=== PATIENT | male | born 1940 | race Caucasian/White ===

== ENCOUNTER → 2017-01-05 | Outpatient (CLI) | payer OTHER ==
[~2017-01-05] MED LIST: ASPI325T39 PO; ESCI1TAB9 PO; LEVO88TA3 PO; MULT-845 PO; PENICILLIN PO; SIMV40TA4 PO; VARD20TA PO
[2017-01-06 16:12] LABS: GAMMA GLOBULIN 1.1 G/DL (0.8-1.7)
== END | disposition home or self-care (01) ==
LOC: C.LABBFT 10:26
PROVIDERS: ATTEND Psychiatry & Neurology Neurology
DX: G62.9 Polyneuropathy, unspecified (principal)

== ENCOUNTER → 2017-05-22 | Outpatient (CLI) | payer OTHER ==
[2017-05-22 17:38] LABS: BASO % 0.2 %; BASO ABS # 0.02 K/uL (0-0.2); COMPLETE YES; EOS % 1.5 %; HEMATOCRIT 45.8 % (42-52); IG% 0.2 %; LYMPH % 26.6 %; LYMPH ABS # 2.51 K/uL (1.2-3.4); MEAN CELL VOLUME 86.6 fL (80-100); MEAN CORPUSCULAR HEMOGLOBIN 29.3 pg (25-34); MEAN CORPUSCULAR HGB CONC 33.8 g/dl (32-36); MEAN PLATELET VOLUME 9.9 fL (7.4-10.4); MONO % 7.3 %; NEUT % 64.2 %; PLATELET COUNT 253 K/uL (130-400); RED BLOOD COUNT 5.29 M/uL (4.7-6.1); WHITE BLOOD COUNT 9.43 K/uL (4.8-10.8)
[2017-05-22 17:50] LABS: PARTIAL THROMBOPLASTIN RATIO 1.1
[2017-05-22 18:55] LABS: PROTHROMBIN TIME (PATIENT) 10.7 SECONDS (9.0-12.0)
== END | disposition home or self-care (01) ==
LOC: C.LABBFT 17:47
PROVIDERS: ATTEND Urology
DX: N40.1 Benign prostatic hyperplasia with lower urinary tract symptoms (principal); R33.9 Retention of urine, unspecified; T14.8 Other injury of unspecified body region; X58.XXXA Exposure to other specified factors, initial encounter

== ENCOUNTER → 2017-06-07 | Outpatient (CLI) | payer OTHER ==
[2017-06-07 12:34] LABS: BASO % 0.3 %; BASO ABS # 0.03 K/uL (0-0.2); COMPLETE YES; EOS % 2.4 %; HEMATOCRIT 47.7 % (42-52); IG% 0.2 %; LYMPH ABS # 2.68 K/uL (1.2-3.4); MEAN CORPUSCULAR HGB CONC 31.9 g/dl (32-36); MEAN PLATELET VOLUME 10.1 fL (7.4-10.4); MONO % 9.2 %; NEUT % 59.9 %; PLATELET COUNT 261 K/uL (130-400); RED BLOOD COUNT 5.42 M/uL (4.7-6.1); WHITE BLOOD COUNT 9.56 K/uL (4.8-10.8)
[2017-06-07 12:54] LABS: ESTIMATED AVERAGE GLUCOSE 117 mg/dl; HA1C FLAG Normal (Normal)
[2017-06-07 13:00] LABS: ALT/SGPT 31 U/L (12-78); BLOOD UREA NITROGEN 16 mg/dl (7-18); CALCIUM 8.7 mg/dl (8.5-10.1); CARBON DIOXIDE 29 mmol/L (21-32); CHLORIDE 107 mmol/L (98-107); CHOLESTEROL 123 mg/dl (0-200); CREATININE 0.88 mg/dl (0.60-1.40); GLUCOSE 91 mg/dl (70-99); SODIUM 142 mmol/L (136-145); TRIGLYCERIDES 128 mg/dl (0-150); VERY LOW DENSITY LIPOPROT CALC 26 mg/dl
[2017-06-07 13:12] LABS: ALKALINE PHOSPHATASE 74 U/L (45-117); AST/SGOT 23 U/L (15-37); CHOLESTEROL/HDL RATIO 2.8; HDL CHOLESTEROL 44 mg/dl; LDL CHOLESTEROL CALCULATED 53 mg/dl; THYROID STIMULATING HORMONE 0.577 uIu/ml (0.300-4.500)
--- NOTE | 2017-06-13 12:00 | CODING QUERY MEDICAL NECESSITY ---
SUPPORTING DIAGNOSIS NEEDED Dr. Mendez, A supporting diagnosis is required for the test/procedure performed on this patient in order for us to be reimbursed by the patient's insurance. Please provide a supporting diagnosis for the following test/procedure listed below next to the test name along with your signature. *If there is no additional diagnosis for this patient that would support the following test/procedure please document that below next to the test/procedure. Test(s)/Procedure(s) that require a supporting diagnosis: * ([id number]) VITAMIN D ASSAY DIAGNOSIS: DATE OF SERVICE: 06/07/17 Provider Signature: Date: Thank you Jacob Carmona [facility] Information Management Once completed, please kindly fax back to [phone] For questions please call [phone]
== END | disposition home or self-care (01) ==
LOC: C.LABBFT 10:02
PROVIDERS: ATTEND Internal Medicine
DX: E03.9 Hypothyroidism, unspecified (principal); R73.01 Impaired fasting glucose

== ENCOUNTER → 2018-06-13 | Outpatient (CLI) | payer OTHER ==
[2018-06-13 12:35] LABS: BASO % 0.3 %; BASO ABS # 0.03 K/uL (0-0.2); EOS % 1.9 %; IG# 0.02 K/uL (0.00-0.02); LYMPH % 23.4 %; LYMPH ABS # 2.46 K/uL (1.2-3.4); MEAN CORPUSCULAR HGB CONC 33.3 g/dl (32-36); MEAN PLATELET VOLUME 10.2 fL (7.4-10.4); MONO % 7.8 %; MONO ABS # 0.82 K/uL (0.11-0.59); NEUT % 66.4 %; PLATELET COUNT 259 K/uL (130-400); RED CELL DISTRIBUTION WIDTH CV 13.5 % (11.5-14.5); RED CELL DISTRIBUTION WIDTH SD 43.2 fL (36.4-46.3); WHITE BLOOD COUNT 10.53 K/uL (4.8-10.8)
[2018-06-13 12:50] LABS: HEMOGLOBIN A1C 5.7 % (4.5-5.6)
[2018-06-13 13:05] LABS: ALBUMIN 3.4 gm/dl (3.4-5.0); ALKALINE PHOSPHATASE 83 U/L (45-117); ALT/SGPT 24 U/L (12-78); AST/SGOT 22 U/L (15-37); BLOOD UREA NITROGEN 14 mg/dl (7-18); CARBON DIOXIDE 26 mmol/L (21-32); CHOLESTEROL 126 mg/dl (0-200); CREATININE 0.97 mg/dl (0.60-1.40); GLUCOSE 89 mg/dl (70-99); LDL CHOLESTEROL CALCULATED 55 mg/dl; POTASSIUM 3.8 mmol/L (3.5-5.1); SODIUM 139 mmol/L (136-145); TOTAL PROTEIN 7.2 gm/dl (6.4-8.2)
== END | disposition home or self-care (01) ==
LOC: C.LABBFT 07:52
PROVIDERS: ATTEND Internal Medicine
DX: E03.9 Hypothyroidism, unspecified (principal); E78.5 Hyperlipidemia, unspecified; M47.812 Spondylosis without myelopathy or radiculopathy, cervical region; M81.0 Age-related osteoporosis without current pathological fracture; R73.01 Impaired fasting glucose; R41.3 Other amnesia; R26.9 Unspecified abnormalities of gait and mobility; R03.0 Elevated blood-pressure reading, without diagnosis of hypertension; I63.9 Cerebral infarction, unspecified; R53.1 Weakness

== ENCOUNTER 2022-07-23 18:35 | Inpatient (IN) ==
--- NOTE | 2022-07-23 18:39 | Emergency Department Note ---
ED Provider Note NAME: MARY GRACE BLAKELY AGE: 81 SEX: M : 1940 ARRIVES VIA: Ambulance INFORMANT: [Patient][, ] ED PROVIDER(S): [Armando Celestin MD] Chief Complaint: [] HPI: [] ROS: See HPI for pertinent positives and negatives. A total of 10 systems were reviewed and otherwise negative. Past medical history: See below Surgical history: See below Social history: See below Physical Exam: GENERAL: NAD, [wearing a mask,] non-toxic. EYE EXAM: Normal conjunctiva. PERRL, no anisocoria and EOM's grossly intact w/o pain. NECK: Supple, no nuchal rigidity, no adenopathy, non-tender. No signs of meningismus. FROM of the neck with good chin to chest and neck extension. No stridor. LUNGS: Clear to auscultation. Normal chest wall mechanics. HEART: NSR, no MRG. ABDOMEN: Abdomen soft, non-tender, normo-active bowel sounds, no masses, no rebound or guarding. BACK: No CVA TTP. SKIN: No rashes and no bruising. UPPER EXTREMITIES: Upper extremities are grossly normal. LOWER EXTREMITIES: Grossly normal, no edema. NEURO EXAM: A&O x3, cranial nerves II-XII grossly intact, normal speech, moves all 4 extremities. Differential diagnoses: [] Course: Patient was seen and evaluated the bedside. Full history physical exam was performed. EKG interpreted by me [] Imaging Studies: See Below Cardiac monitoring: An order was placed for continuous cardiac monitoring. The monitor shows a rate of [] with [] rhythm. MDM: [] Past Med/Surg History Medical History Benign prostatic hyperplasia with lower urinary tract symptoms Diverticulosis of colon Gait disturbance, post-stroke Hypothyroidism Impaired fasting glucose Osteoporosis Periodic limb movement disorder Stenosis, cervical spine Stroke, hemorrhagic Tremor Surgical History History of colonoscopy (12/02/15) Dr. Lee, sigmoid diverticulosis, no polyps. Due to age, no repeat necessary for screening. 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 Physical Activity Frequency: Does not Exercise Seatbelt Use: always Sunscreen Use: No Allergies Allergies Allergy/AdvReac Type Severity Reaction Status Date / Time No Known Allergies Allergy Unverified 09/01/21 15:03 Home Meds Home Medications Medication Instructions Recorded Confirmed glucosamine-chondroitin 250 mg-200 1 tab PO BID 08/27/20 09/01/21 mg tablet (Osteo Bi-Flex) vitamin E (dl, acetate) 90 mg (200 268 unit PO DAILY 09/01/21 09/01/21 unit) capsule Previous Rx's Medication Instructions Recorded jluohrqw-ngg-jrhkp acid 0.4 1 tab PO DAILY #30 tabs 06/01/19 mg-lycopene 300 mcg-lutein 250 mcg tablet (Centrum Silver) simvastatin 40 mg tablet See Rx Instructions .Route QPM #90 03/31/22 tabs clopidogrel 75 mg tablet 75 mg PO DAILY #90 tabs 04/27/22 donepezil 10 mg tablet 10 mg PO DAILY #30 tabs 05/23/22 levothyroxine 88 mcg tablet 88 mcg PO DAILY #30 tabs 05/23/22 Wheelchair (Manual) #1 ea 06/06/22 diaper,brief,adult,disposable #120 ea 06/06/22 underpads (Bed Underpads) #100 ea 06/06/22 tamsulosin 0.4 mg capsule 0.4 mg PO DAILY #90 caps 06/17/22 memantine 10 mg tablet 10 mg PO BID #60 tabs 06/27/22 finasteride 5 mg tablet 5 mg PO DAILY #90 tabs 07/20/22 Results & Data (ED) Home Medications Current Medication List: was personally reviewed by me Laboratory Data Attestation: I reviewed the patient's lab results. Discharge Plan Visit Data Chief Complaint: Illness Stated Complaint: WEAKNESS ED Provider: Armando Celestin Forms Stand Alone Forms: [facility] Prescriptions Prescriptions: No Action Centrum Silver 0.4-300-250 mg-mcg-mcg tablet 1 tab PO DAILY Qty: 30 0RF simvastatin 40 mg tablet See Rx Instructions .ROUTE QPM Qty: 90 3RF Dose Instruction: TAKE 1 TABLET AT BEDTIME Rx Instructions: TAKE 1 TABLET AT BEDTIME; daily in the evening; clopidogrel 75 mg tablet 75 mg PO DAILY Qty: 90 3RF levothyroxine 88 mcg tablet 88 mcg PO DAILY Qty: 30 11RF donepezil 10 mg tablet 10 mg PO DAILY Qty: 30 11RF tamsulosin 0.4 mg capsule 0.4 mg PO DAILY Qty: 90 3RF memantine 10 mg tablet 10 mg PO BID Qty: 60 11RF finasteride 5 mg tablet 5 mg PO DAILY Qty: 90 3RF glucosamine-chondroitin [Osteo Bi-Flex] 250-200 mg tablet 1 tab PO BID Rx Instructions: give after food/meal vitamin E (dl, acetate) 90 mg (200 unit) capsule 268 unit PO DAILY (DME) Wheelchair (Manual) Device See Rx Instructions .Route Qty: 1 0RF Rx Instructions: As directed (DME) diaper,brief,adult,disposable Misc See Rx Instructions .Route Qty: 120 11RF Rx Instructions: Diaper type. SIZE MEDIUM/LARGE (DME) underpads [Bed Underpads] Pad See Rx Instructions .Route Qty: 100 11RF Rx Instructions: Change as needed Referrals Referrals: Leonid Nj MD [Primary Care Provider] -
[2022-07-23] MEDS ORDERED: SODIUM CHLORIDE 0.9% 1000ML 1,000 ML IV ONE (18:41)
--- NOTE | 2022-07-23 18:45 | Emergency Department Note ---
Impression & Plan Acute confusion, COVID-19, Weakness ED Provider Note NAME: MARY GRACE BLAKELY AGE: 81 SEX: M : 1940 ARRIVES VIA: Ambulance INFORMANT: Patient, EMS ED PROVIDER(S): Jerardo Taylor DO CHIEF COMPLAINT: AMS and weakness HPI: Patient is a 81-year-old male with a past medical history of urinary incontinence, stroke, hyperlipidemia, who presents to the ER for altered mental status and weakness which has been present since yesterday per EMS. He lives at home with his . Family has noted increased confusion. He denies any headache, neck pain, chest pain, shortness of breath or belly pain. He denies any new weakness or numbness in the arms or legs. He notes that he does have old weakness in the right lower extremity. History is limited secondary to mentation. ROS: Review of systems is limited secondary to mentation PAST MEDICAL HISTORY:See Below PAST SURGICAL HISTORY:See Below FAMILY HISTORY:See Below SOCIAL HISTORY:See Below HOME MEDICATIONS:See Below ALLERGIES:See Below VITALS:See Below PHYSICAL EXAMINATION: GENERAL: Sitting up in bed, alert, chronically ill-appearing, disheveled EYE EXAM: normal conjunctiva. PERRL and EOM's grossly intact. OROPHARYNX: Dry mucous membranes LUNGS: Clear to auscultation. Normal chest wall mechanics HEART: no murmurs, S1 normal and S2 normal ABDOMEN: abdomen soft, non-tender, normo-active bowel sounds, no masses, no rebound or guarding. UPPER EXTREMITIES: upper extremities are grossly normal. LOWER EXTREMITIES: No pitting edema. NEURO EXAM: Oriented to person but not place or year, cranial nerves II-XII intact, normal speech, no weakness of arms, no weakness of left lower extremity but weakness in the right lower extremity which is old per patient. MEDICAL DECISION MAKING: Patient is a 81-year-old male who presents ER for above-stated complaint. Family notes that he has been coughing over the past 24 hours. IV was established blood work was obtained. Labs show leukocytosis of 14,000. No significant anemia. BMP along with LFTs bilirubin was unremarkable. Troponin was mildly elevated at 30. Lipase and Pro-Adonis were normal. UA was fairly unremarkable. COVID was positive. Chest x-ray shows no focal infiltrate. Patient was updated bedside and discussed with hospitalist for further evaluation. Triage Nursing notes reviewed. Limited review of prior medical records performed Vital Signs: reviewed and remarkable for no significant abnormalities Differential diagnosis: Differential diagnoses includes but is not limited to toxic, metabolic, infectious, traumatic, cardiac, neurologic, hematologic, psychiatric and inflammatory etiologies. ER treatment provided: See below Diagnostics interpreted by me: ECG: none Cardiac Monitoring: An order was placed for continuous cardiac monitoring. The m onitor shows a rate of 92 with sinus rhythm. Laboratory studies: As stated above and show below. Imaging studies: Portable AP upright 1 view the chest per my read shows no focal infiltrate or pneumothorax Consultation(s): Discussed the hospitalist for further evaluation Procedures: none Critical Care: None Past Med/Surg History Medical History (Updated 07/24/22 @ 00:57 by Jerardo Taylor DO) Benign prostatic hyperplasia with lower urinary tract symptoms Diverticulosis of colon Elevated troponin Gait disturbance, post-stroke Hypothyroidism Impaired fasting glucose Osteoporosis Periodic limb movement disorder Stenosis, cervical spine Stroke, hemorrhagic Tremor Surgical History History of colonoscopy (12/02/15) Dr. Lee, sigmoid diverticulosis, no polyps. Due to age, no repeat necessary for screening. Family History Father Myocardial infarction Denies family history of Ovarian cancer Prostate cancer Breast cancer Colorectal cancer Social History Smoking Status: Never smoker Second Hand Exposure: No; Hx Alcohol Use: No Hx Substance Use: No Preferred Language: Malay Visual Impairment: No Limitations Hearing Ability: Use of Hearing Aid Route Inspector Required: No Beliefs That Will Affect Care: None marital status: Current Living Situation: Spouse current occupational status: retired Feels Safe at Home: Yes Safety Concerns: Feels Safe At This Time Dental Care, Regularly: Yes Physical Activity Frequency: Does not Exercise Seatbelt Use: always Sunscreen Use: No Assistive Devices: None Allergies Allergies Allergy/AdvReac Type Severity Reaction Status Date / Time No Known Allergies Allergy Unverified 09/01/21 15:03 Home Meds Home Medications Medication Instructions Recorded Confirmed glucosamine-chondroitin 250 mg-200 1 tab PO BID 08/27/20 07/23/22 mg tablet (Osteo Bi-Flex) vitamin E (dl, acetate) 90 mg (200 268 unit PO DAILY 09/01/21 07/23/22 unit) capsule Previous Rx's Medication Instructions Recorded tpvahtii-gbo-bxrrp acid 0.4 1 tab PO DAILY #30 tabs 06/01/19 mg-lycopene 300 mcg-lutein 250 mcg tablet (Centrum Silver) simvastatin 40 mg tablet See Rx Instructions .Route QPM #90 03/31/22 tabs clopidogrel 75 mg tablet 75 mg PO DAILY #90 tabs 04/27/22 donepezil 10 mg tablet 10 mg PO DAILY #30 tabs 05/23/22 levothyroxine 88 mcg tablet 88 mcg PO DAILY #30 tabs 05/23/22 Wheelchair (Manual) #1 ea 06/06/22 diaper,brief,adult,disposable #120 ea 06/06/22 underpads (Bed Underpads) #100 ea 06/06/22 tamsulosin 0.4 mg capsule 0.4 mg PO DAILY #90 caps 06/17/22 memantine 10 mg tablet 10 mg PO BID #60 tabs 06/27/22 finasteride 5 mg tablet 5 mg PO DAILY #90 tabs 07/20/22 Results & Data (ED) Vital Signs Vital Signs - 24 hr 07/23/22 19:00 07/23/22 19:12 Temperature 36.8 C Temperature Source Oral Pulse Rate 90 Respiratory Rate 18 Respiratory Effort / Characteristics Non-Labored Respiratory Depth Normal Blood Pressure 117/79 Blood Pressure Mean 91 Pulse Oximetry 95 95 Oxygen Delivery Method Room Air Room Air Sepsis Recent Fever Within 48 Hours No Sepsis New/Unexplained Change in Mental Status No Sepsis Action Taken by Nursing No Action Required Laboratory Data Result diagrams: 07/23/22 19:02 07/23/22 19:02 Lab Results 07/23/22 07/23/22 07/23/22 Range/Units 18:56 19:02 19:02 WBC 13.99 H (4.8-10.8) K/ul RBC 5.17 (4.63-6.08) M/uL Hgb 15.2 (14.0-18.0) g/dl Hct 46.2 (40.1-51.0) % MCV 89.4 (80.0-100.0) fL MCH 29.4 (25.0-34.0) pg MCHC 32.9 (32.0-36.0) g/dL RDW Std Deviation 44.4 (36.4-46.3) fL RDW Coeff of Fabiano 13.5 (11.5-14.5) % Plt Count 246 (130-400) K/uL MPV 9.7 (9.4-12.4) fL Immature Gran % (Auto) 0.7 % Neut % (Auto) 73.9 % Lymph % (Auto) 12.4 % [place] % (Auto) 10.7 % Eos % (Auto) 1.5 % Baso % (Auto) 0.8 % Neut # (Auto) 10.35 H (1.4-6.5) K/uL Lymph # (Auto) 1.73 (1.2-3.4) K/uL [place] # (Auto) 1.49 H (0.24-0.82) K/uL Eos # (Auto) 0.21 (0-0.50) K/uL Baso # (Auto) 0.11 (0-0.2) K/uL Immature Gran # (Auto) 0.10 H (0.00-0.02) K/uL ESR (0-20) mm/hr Sodium 141 (136-145) mmol/L Potassium 4.0 (3.5-5.1) mmol/L Chloride 107 (98-107) mmol/L Carbon Dioxide 28 (21-32) mmol/L Anion Gap 6 (3-11) BUN 17 (6-23) mg/dl Creatinine 1.10 (0.6-1.4) mg/dl Est Cr Clr Drug Dosing 57.0 ml/min Est GFR ( Amer) 73.6 ml/min Est GFR (Non-Af Amer) 63.5 ml/min BUN/Creatinine Ratio 15.5 (10-20) Glucose 102 H (70-99(Fasting)) mg/dl Calcium 9.3 (8.5-10.1) mg/dl Total Bilirubin 0.5 (0.2-1.0) mg/dl AST 27 (13-39) U/L ALT 17 (7-52) U/L Alkaline Phosphatase 76 (34-104) U/L Troponin I High Sens 33.0 H (0-20) pg/ml Total Protein 6.7 (6.0-8.3) gm/dl Albumin 3.7 (3.4-5.0) gm/dl Globulin 3.0 (2.5-4.0) gm/dl Albumin/Globulin Ratio 1.2 (0.9-2) Lipase 37 (11-82) U/L Urine Color Dark Yellow Urine Appearance Clear (Clear) Urine pH 6.5 (4.5-7.5) Ur Specific [place] 1.020 (1.000-1.030) Urine Protein Negative (Negative) Urine Glucose (UA) Negative (Negative) Urine Ketones Trace H (Negative) Urine Blood Negative (Negative) Urine Nitrite Negative (Negative) Urine Bilirubin Negative (Negative) Urine Urobilinogen Negative (Negative) Ur Leukocyte Esterase Trace H (Negative) Urine WBC (Auto) 5-10 H (0-5) /hpf Urine RBC (Auto) 0-4 (0-4) /hpf U Hyaline Cast (Auto) 0 (0-5) /lpf U Epithel Cells (Auto) 5-10 H (0-5) /lpf Urine Bacteria (Auto) Negative (Negative) SARS-CoV-2, RNA, NAAT (NEGATIVE) 07/23/22 07/23/22 Range/Units 19:02 19:08 WBC (4.8-10.8) K/ul RBC (4.63-6.08) M/uL Hgb (14.0-18.0) g/dl Hct (40.1-51.0) % MCV (80.0-100.0) fL MCH (25.0-34.0) pg MCHC (32.0-36.0) g/dL RDW Std Deviation (36.4-46.3) fL RDW Coeff of Fabiano (11.5-14.5) % Plt Count (130-400) K/uL MPV (9.4-12.4) fL Immature Gran % (Auto) % Neut % (Auto) % Lymph % (Auto) % [place] % (Auto) % Eos % (Auto) % Baso % (Auto) % Neut # (Auto) (1.4-6.5) K/uL Lymph # (Auto) (1.2-3.4) K/uL [place] # (Auto) (0.24-0.82) K/uL Eos # (Auto) (0-0.50) K/uL Baso # (Auto) (0-0.2) K/uL Immature Gran # (Auto) (0.00-0.02) K/uL ESR 31 H (0-20) mm/hr Sodium (136-145) mmol/L Potassium (3.5-5.1) mmol/L Chloride (98-107) mmol/L Carbon Dioxide (21-32) mmol/L Anion Gap (3-11) BUN (6-23) mg/dl Creatinine (0.6-1.4) mg/dl Est Cr Clr Drug Dosing ml/min Est GFR ( Amer) ml/min Est GFR (Non-Af Amer) ml/min BUN/Creatinine Ratio (10-20) Glucose (70-99(Fasting)) mg/dl Calcium (8.5-10.1) mg/dl Total Bilirubin (0.2-1.0) mg/dl AST (13-39) U/L ALT (7-52) U/L Alkaline Phosphatase (34-104) U/L Troponin I High Sens (0-20) pg/ml Total Protein (6.0-8.3) gm/dl Albumin (3.4-5.0) gm/dl Globulin (2.5-4.0) gm/dl Albumin/Globulin Ratio (0.9-2) Lipase (11-82) U/L Urine Color Urine Appearance (Clear) Urine pH (4.5-7.5) Ur Specific [place] (1.000-1.030) Urine Protein (Negative) Urine Glucose (UA) (Negative) Urine Ketones (Negative) Urine Blood (Negative) Urine Nitrite (Negative) Urine Bilirubin (Negative) Urine Urobilinogen (Negative) Ur Leukocyte Esterase (Negative) Urine WBC (Auto) (0-5) /hpf Urine RBC (Auto) (0-4) /hpf U Hyaline Cast (Auto) (0-5) /lpf U Epithel Cells (Auto) (0-5) /lpf Urine Bacteria (Auto) (Negative) SARS-CoV-2, RNA, NAAT POSITIVE A* (NEGATIVE) Administered Medications Glucosamine Sulfate (Glucosamine Sulfate 500 Mg Cap) 500 mg PO BIDM IBRAHIMA Stop: 08/22/22 23:14 Last Admin: 07/23/22 23:46 Dose: 500 mg Documented By: QG Sodium Chloride (Nss 1000ml) 1,000 mls @ 100 mls/hr IV .Q10H IBRAHIMA Stop: 07/24/22 08:03 Last Admin: 07/23/22 23:13 Dose: 100 mls/hr Documented By: QG Memantine (Memantine Hcl 10 Mg Tab) 10 mg PO BID IBRAHIMA Stop: 08/22/22 22:03 Last Admin: 07/23/22 23:18 Dose: 10 mg Documented By: QG Simvastatin (Simvastatin 40 Mg Tab) 40 mg PO QPM IBRAHIMA Stop: 08/22/22 22:03 Last Admin: 07/23/22 23:18 Dose: 40 mg Documented By: QG Discontinued Medications Enoxaparin Sodium (Enoxaparin Inj 40 Mg/0.4 Ml Syr) 40 mg SQ Q12H IBRAHIMA Stop: 08/22/22 22:59 Last Admin: 07/23/22 23:15 Dose: 40 mg Documented By: QG Sodium Chloride (Nss 1000ml) 1,000 mls @ 999 mls/hr IV .Q1H1M ONE Stop: 07/23/22 19:41 Last Infusion: 07/23/22 20:18 Dose: 0 mls/hr Documented By: Admin: 07/23/22 19:12 Dose: 999 mls/hr Documented By: ISAIAS Imaging Data Radiologist's Impression: Head CT 07/23/22 18:41 CT OF THE HEAD WITHOUT CONTRAST CLINICAL HISTORY: Altered mental status. COMPARISON STUDY: Head CT June 09, 2016. CT DOSE: 614.27 mGy.cm TECHNIQUE: Helical axial images of the head were obtained without IV contrast. Automated exposure control was utilized for the study. A dose lowering technique was utilized adhering to the principles of ALARA. FINDINGS: No acute intracranial hemorrhage, midline shift or mass effect is p resent. The ventricular system is stable. White matter hypodensities favor small vessel disease. Moderate atrophy. The basal cisterns are patent. No extra-axial collections are present. There are no findings to suggest acute dural sinus thrombosis or acute territorial infarct. No significant calvarial abnormalities are present. Visualized portions of the sinuses and mastoid air cells are clear. IMPRESSION: No acute intracranial findings. ACT 112: Negative or not required by law. Electronically signed by: Deshaun Painter M.D. 07/23/2022 7:51 PM Discharge Plan Visit Data Chief Complaint: Illness Stated Complaint: WEAKNESS ED Provider: Jerardo Taylor Discharge Problem: Acute confusion, COVID-19, Weakness Patient Disposition: Admitted As Inpatient Discharge Instructions Interventions: ED Discharge Assessment Last Done: 07/23/22 21:17
[2022-07-23 19:19] LABS: Basophils # (auto) 0.11 K/uL (0-0.2); Basophils % (auto) 0.8 %; Eosinophils # (auto) 0.21 K/uL (0-0.50); Eosinophils % (auto) 1.5 %; Hematocrit (blood only) 46.2 % (40.1-51.0); Hemoglobin 15.2 g/dl (14.0-18.0); Immature Granulocytes % (auto) 0.7 %; Lymphocytes # (auto) 1.73 K/uL (1.2-3.4); Lymphocytes % (auto) 12.4 %; Mean Corpuscular Hemoglobin 29.4 pg (25.0-34.0); Mean Corpuscular Hgb Conc 32.9 g/dL (32.0-36.0); Mean Corpuscular Volume 89.4 fL (80.0-100.0); Mean Platelet Volume 9.7 fL (9.4-12.4); Monocytes # (auto) 1.49 K/uL (0.24-0.82); Monocytes % (auto) 10.7 %; Neutrophils # (auto) 10.35 K/uL (1.4-6.5); Neutrophils % (auto) 73.9 %; Platelet Count 246 K/uL (130-400); RDW Coefficient of Variation 13.5 % (11.5-14.5); RDW Standard Deviation 44.4 fL (36.4-46.3); Red Blood Count 5.17 M/uL (4.63-6.08); White Blood Count 13.99 K/ul (4.8-10.8)
[2022-07-23 19:28] LABS: Appearance Urine Clear (Clear); Bacteria Urine Automated Negative (Negative); Bilirubin Urine Negative (Negative); Blood Urine Negative (Negative); Cast Urine Automated 0 /lpf (0-5); Color Urine Dark Yellow; Glucose Urine UA Negative (Negative); Ketones Urine Trace (Negative); Leukocyte Esterase Urine Trace (Negative); Nitrite Urine Negative (Negative); Protein Urine Negative (Negative); RBC Urine Automated 0-4 /hpf (0-4); Urobilinogen Urine Negative (Negative); pH Urine 6.5 (4.5-7.5)
[2022-07-23 19:41] LABS: Albumin Globulin Ratio 1.2 (0.9-2); Albumin Level 3.7 gm/dl (3.4-5.0); BUN Creatinine Ratio 15.5 (10-20); Bilirubin,Total 0.5 mg/dl (0.2-1.0); Calcium 9.3 mg/dl (8.5-10.1); Est GFR (African American) 73.6 ml/min; Est GFR (Non-African American) 63.5 ml/min; Total Protein 6.7 gm/dl (6.0-8.3)
--- NOTE | 2022-07-23 19:52 | CT Scan Report ---
CT OF THE HEAD WITHOUT CONTRAST CLINICAL HISTORY: Altered mental status. COMPARISON STUDY: Head CT June 09, 2016. CT DOSE: 614.27 mGy.cm TECHNIQUE: Helical axial images of the head were obtained without IV contrast. Automated exposure con trol was utilized for the study. A dose lowering technique was utilized adhering to the principles o f ALARA. FINDINGS: No acute intracranial hemorrhage, midline shift or mass effect is present. The ventricular system is stable. White matter hypodensities favor small vessel disease. Moderate atrophy. The basal cisterns are patent. No extra-axial collections are present. There are no findings to suggest acute d ural sinus thrombosis or acute territorial infarct. No significant calvarial abnormalities are presen t. Visualized portions of the sinuses and mastoid air cells are clear. IMPRESSION: No acute intracranial findings. ACT 112: Negative or not required by law. Electronically signed by: Deshaun Painter M.D. 07/23/2022 7:51 PM
--- NOTE | 2022-07-23 20:04 | History & Physical Report ---
Date of Service July 23, 2022 Assessment & Plan (1) COVID-19: Plan: - 2 days of symptoms, patient feeling generally weak with productive cough. Not feeling short of breath. - UTD on COVID vaccines. - Elevated WBC @ 14, ESR 31, CRP 3.9; PCT < 0.05. - CXR pending at time of admission, if consolidation is seen consistent with pneumonia, would treat empirically with Rocephin and azithromycin. - Isolation precautions. - Lovenox for VTE ppx. - Currently > 95% on RA, not a candidate for remdesivir or steroids. - Supportive care: Tylenol for pain/fevers, DuoNeb q4h prn, incentive spirometry. (2) Elevated troponin: Plan: - HS trop elevated at 33 upon presentation, EKG with some evidence of ischemia. - Patient without chest pain or other anginal equivalent symptoms. - Will be on tele unit overnight. - Trend troponin. New EKG with angina or equivalent. 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 - He is on Plavix. - Residual RLE weakness. - Head CT today without evidence of infarct, on exam patient is without any new focal deficits. (4) Senile dementia: Plan: - Continue memantine and donepezil. - Can order 1-1 sitter if patient becomes combative and danger to self/others. - Patient is completely dependent on family for 24/7 care and they have expressed interest in patient being evaluated for possible placement to a facility. - PT/OT to eval and treat. (5) Dyslipidemia: Plan: - Continue statin. (6) Benign prostatic hyperplasia: Plan: - Continue Flomax, finasteride. - PVR scans as needed. Plan - Admit to med/tele with COVID isolation precautions. - Lovenox for VTE ppx. - DNR/DNI. History of Present Illness Chief Complaint: general weakness for 2 days Primary Care Provider: Leonid Nj MD Wally Duffy is a 81-year-old male with past medical history significant for a hemorrhagic CVA several years ago, dementia, BPH, hypothyroidism, and hyperlipidemia who presents today from home with his family due to weakness. For the past 2 days he has been more confused than baseline, and just seems generally ill. His son is his primary caregiver and while patient requires near total assistance with ADLs, he is usually able to participate somewhat and is typically conversational, however, he has been less responsive and seems too weak to move in bed at all. He also notes that he has been coughing for the past day and his lungs sound "rattly". History from patient is limited due to severe dementia, however he voices no complaints. Upon presentation, patient is hemodynamically stable, his VS are wnl. He is COVID positive, labs also significant for leukocytosis w/ a WBC 14. HS troponin slightly elevated at 33, otherwise labs are unremarkable. Due to history of hemorrhagic CVA and increased confusion, head CT was obtained which is unremarkable for any acute process. A CXR is currently pending. Allergies Allergy/AdvReac Type Severity Reaction Status Date / Time No Known Allergies Allergy Unverified 09/01/21 15:03 Home Medications Medication Instructions Recorded Confirmed Type rwhkzxvj-[id number] acid 0.4 1 tab PO DAILY #30 tabs 06/01/19 07/23/22 Rx mg-lycopene 300 mcg-lutein 250 mcg tablet (Centrum Silver) glucosamine-chondroitin 250 mg-200 1 tab PO BID 08/27/20 07/23/22 History mg tablet (Osteo Bi-Flex) vitamin E (dl, acetate) 90 mg (200 268 unit PO DAILY 09/01/21 07/23/22 History unit) capsule simvastatin 40 mg tablet See Rx Instructions .Route QPM #90 03/31/22 07/23/22 Rx tabs clopidogrel 75 mg tablet 75 mg PO DAILY #90 tabs 04/27/22 07/23/22 Rx donepezil 10 mg tablet 10 mg PO DAILY #30 tabs 05/23/22 07/23/22 Rx levothyroxine 88 mcg tablet 88 mcg PO DAILY #30 tabs 05/23/22 07/23/22 Rx Wheelchair (Manual) #1 ea 06/06/22 06/06/22 Rx diaper,brief,adult,disposable #120 ea 06/06/22 06/06/22 Rx underpads (Bed Underpads) #100 ea 06/06/22 06/06/22 Rx tamsulosin 0.4 mg capsule 0.4 mg PO DAILY #90 caps 08/05/22 09/10/22 Rx memantine 10 mg tablet 10 mg PO BID #60 tabs 06/27/22 07/23/22 Rx finasteride 5 mg tablet 5 mg PO DAILY #90 tabs 07/20/22 07/23/22 Rx Past Med/Surg History Medical History (Updated 07/23/22 @ 21:21 by Norma Benson PA-C) Benign prostatic hyperplasia with lower urinary tract symptoms Diverticulosis of colon Elevated troponin Gait disturbance, post-stroke Hypothyroidism Impaired fasting glucose Osteoporosis Periodic limb movement disorder Stenosis, cervical spine Stroke, hemorrhagic Tremor Surgical History History of colonoscopy (12/02/15) Dr. Lee, sigmoid diverticulosis, no polyps. Due to age, no repeat necessary for screening. Family History Father Myocardial infarction Denies family history of Ovarian cancer Prostate cancer Breast cancer Colorectal cancer Social History Smoking Status: Never smoker Second Hand Exposure: No; Hx Alcohol Use: No Hx Substance Use: No Preferred Language: Indonesian Visual Impairment: No Limitations Hearing Ability: Use of Hearing Aid [employer] Required: No Beliefs That Will Affect Care: None marital status: Current Living Situation: Spouse current occupational status: retired Feels Safe at Home: Yes Safety Concerns: Feels Safe At This Time Dental Care, Regularly: Yes Physical Activity Frequency: Does not Exercise Seatbelt Use: always Sunscreen Use: No Assistive Devices: None Review of Systems Review of Systems: Unobtainable due to cognitive status Physical Exam Physical Exam: General: awake, alert, no apparent distress Head: Normocephalic, atraumatic ENT: PERRL, EOMI, no pharyngeal exudate, mucous membranes moist Chest: Clear to auscultation, on room air, no adventitious breath sounds Cardiac: Regular rate and rhythm, no murmur, no JVD, normal peripheral pulses, good capillary refill Abdominal: NABS x 4 quadrants, soft, nontender to palpation, no rebound, guarding or tenderness Extremities: Normal inspection, no peripheral edema or erythema, calfs nontender to palpation Psych: Normal mood and affect Neuro: AAO x 3, strength intact bilaterally and rated 5/5, no motor deficits, speech is clear, no peripheral sensory deficits Skin: no rash or erythema Results & Data Results & Data ([facility]) Vital Signs (Past 12 Hours) Vital Signs Temp Pulse Resp BP Pulse Ox O2 Del Method 07/23/22 19:12 95 Room Air 07/23/22 19:00 36.8 C 90 18 117/79 95 Room Air Laboratory Results Abnormal lab results 07/23/22 07/23/22 07/23/22 Range/Units 18:56 19:02 19:02 WBC 13.99 H (4.8-10.8) K/ul Neut # (Auto) 10.35 H (1.4-6.5) K/uL Gage # (Auto) 1.49 H (0.24-0.82) K/uL Immature Gran # (Auto) 0.10 H (0.00-0.02) K/uL Glucose 102 H (70-99(Fasting)) mg/dl Troponin I High Sens 33.0 H (0-20) pg/ml Urine Ketones Trace H (Negative) Ur Leukocyte Esterase Trace H (Negative) Urine WBC (Auto) 5-10 H (0-5) /hpf U Epithel Cells (Auto) 5-10 H (0-5) /lpf SARS-CoV-2, RNA, NAAT (NEGATIVE) 07/23/22 Range/Units 19:08 WBC (4.8-10.8) K/ul Neut # (Auto) (1.4-6.5) K/uL Gage # (Auto) (0.24-0.82) K/uL Immature Gran # (Auto) (0.00-0.02) K/uL Glucose (70-99(Fasting)) mg/dl Troponin I High Sens (0-20) pg/ml Urine Ketones (Negative) Ur Leukocyte Esterase (Negative) Urine WBC (Auto) (0-5) /hpf U Epithel Cells (Auto) (0-5) /lpf SARS-CoV-2, RNA, NAAT POSITIVE A* (NEGATIVE) Diagnostic Findings Head CT 07/23/22 18:41 CT OF THE HEAD WITHOUT CONTRAST CLINICAL HISTORY: Altered mental status. COMPARISON STUDY: Head CT June 09, 2016. CT DOSE: 614.27 mGy.cm TECHNIQUE: Helical axial images of the head were obtained without IV contrast. Automated exposure control was utilized for the study. A dose lowering technique was utilized adhering to the principles of ALARA. FINDINGS: No acute intracranial hemorrhage, midline shift or mass effect is present. The ventricular system is stable. White matter hypodensities favor small vessel disease. Moderate atrophy. The basal cisterns are patent. No extra- axial collections are present. There are no findings to suggest acute dural sinus thrombosis or acute territorial infarct. No significant calvarial abnormalities are present. Visualized portions of the sinuses and mastoid air cells are clear. IMPRESSION: No acute intracranial findings. ACT 112: Negative or not required by law. Electronically signed by: Deshaun Painter M.D. 07/23/2022 7:51 PM Code Status & VTE Plan Code Status DNR/DNI per discussion with and [id number] at bedside. Supervising Physician Co-Signing Physician Notes Patient seen and examined, chart reviewed, case discussed with PAC. Kelley and I agree with the assessment and plan as documented above. In brief, patient is a 81-year-old male with history of dementia, hyperlipidemia, BPH and hemorrhagic CVA several years ago presenting with increased confusion and decreased responsiveness as well as cough and weakness. Patient is vaccinated against COVID-19 Found to be positive for COVID in the ER today Afebrile, hemodynamically stable. No respiratory distress. Saturations have been between 94 and 95% on room air On exam patient is resting comfortably no acute distress. Oriented only to person at this time HEENTnormocephalic, atraumatic, pupils equal and reactive to light, moist mucous membranes Heartpositive SIS2, regular Lungs equal air entry bilaterally with no rales/rhonchi/wheezes with anterior auscultation Abdomensoft, nondistended, nontender with normoactive bowel sounds Extremitieswarm, well-perfused Labs and images reviewed significant for elevated WBC count of 13.9 with neutrophil predominance elevated ESR and CRP and positive COVID-19 test Chest x-ray with no obvious infiltrate Procalcitonin less than 0.05 Assessment/plan 81-year-old male presenting with COVID-19 infection, increased confusion, weakness and cough Patient is fully vaccinated. Adequate oxygenation on room air. No indication for steroids or remdesivir at this time We will hold off on antibiotics for presumed bacterial pneumonia at this time. Troponin initially [address] changes T wave inversions present on EKG. Repeat troponin = 31 we will continue to trend Remainder of plan as above PG Care Time/CCT Total # of Minutes Spent Total Time Spent with Patient: Total time spent is greater than 50% in coordination of care (as documented) at patient's floor/unit and/or counseling patient: Coding Level of Care Code 89863 Initial Inpt Care Lvl 3 Diagnoses COVID-19 U07.1 Elevated troponin R77.8 History of CVA (cerebrovascular accident) Z86.73 Senile dementia F03.90 Dyslipidemia E78.5 Benign prostatic hyperplasia N40.0
[2022-07-23] MEDS ORDERED: ACETAMINOPHEN 1,000 MG/100 ML VIAL IV PRN (22:04)
[2022-07-23] MEDS ORDERED: ONDANSETRON INJ 2 MG/ML 2 ML VIAL IV PRN (22:04)
[2022-07-23] MEDS ORDERED: SODIUM CHLORIDE 0.9% 1000ML 1,000 ML IV SCH (22:04)
[2022-07-23] MEDS ORDERED: ALBUT/IPRATROP 3MG/0.5MG NEB 3 ML VIAL INH PRN (22:04)
[2022-07-23] MEDS ORDERED: GLUCOSAMINE SULFATE 500 MG CAP PO SCH (22:04)
[2022-07-23] MEDS ORDERED: POLYETHYLENE (MIRALAX) 17 GM PACK PO PRN (22:04)
[2022-07-23] MEDS ORDERED: ENOXAPARIN INJ 40 MG/0.4 ML SYR SQ SCH (23:00)
[2022-07-23] MEDS: SIMVASTATIN 40 MG TAB PO SCH (23:18)
[2022-07-23] MEDS: MEMANTINE HCL 10 MG TAB PO SCH (23:18)
[2022-07-23] MEDS: GLUCOSAMINE SULFATE 500 MG CAP PO SCH (23:46)
[2022-07-24 01:52] LABS: Basophils # (auto) 0.12 K/uL (0-0.2); Eosinophils # (auto) 0.17 K/uL (0-0.50); Eosinophils % (auto) 1.4 %; Hematocrit (blood only) 43.6 % (40.1-51.0); Hemoglobin 14.4 g/dl (14.0-18.0); Immature Granulocytes # (auto) 0.06 K/uL (0.00-0.02); Immature Granulocytes % (auto) 0.5 %; Lymphocytes # (auto) 1.85 K/uL (1.2-3.4); Lymphocytes % (auto) 14.9 %; Mean Corpuscular Hemoglobin 29.6 pg (25.0-34.0); Mean Corpuscular Volume 89.7 fL (80.0-100.0); Mean Platelet Volume 9.4 fL (9.4-12.4); Monocytes # (auto) 1.52 K/uL (0.24-0.82); Monocytes % (auto) 12.3 %; Neutrophils # (auto) 8.67 K/uL (1.4-6.5); Neutrophils % (auto) 69.9 %; Platelet Count 227 K/uL (130-400); RDW Coefficient of Variation 13.5 % (11.5-14.5); RDW Standard Deviation 43.9 fL (36.4-46.3); Red Blood Count 4.86 M/uL (4.63-6.08); White Blood Count 12.39 K/ul (4.8-10.8)
[2022-07-24 02:18] LABS: C Reactive Protein 4.23 mg/dl (0-0.5); Calcium 8.9 mg/dl (8.5-10.1); Creatinine Clr Calc Pharmacy 55.3 ml/min; Est GFR (African American) 76.1 ml/min; Est GFR (Non-African American) 65.7 ml/min; Magnesium 1.9 mg/dl (1.7-2.4); Potassium 4.1 mmol/L (3.5-5.1)
[2022-07-24] MEDS: LEVOTHYROXINE SODIUM 88 MCG TABLET PO SCH (05:48)
[2022-07-24] MEDS: FINASTERIDE 5 MG TAB PO SCH (07:22)
[2022-07-24] MEDS: CLOPIDOGREL BISULFATE 75 MG TAB PO SCH (07:23)
[2022-07-24] MEDS: GLUCOSAMINE SULFATE 500 MG CAP PO SCH ×2 (07:23→17:42)
[2022-07-24] MEDS: TAMSULOSIN HCL 0.4 MG CAP PO SCH (07:23)
[2022-07-24] MEDS: MEMANTINE HCL 10 MG TAB PO SCH ×2 (07:23→20:10)
[2022-07-24] MEDS: DONEPEZIL HCL 10 MG TAB PO SCH (07:23)
--- NOTE | 2022-07-24 08:32 | XRay Report ---
XR chest 1V portable HISTORY: 81 years-old Male COVID acute shortness of breath COMPARISON: None TECHNIQUE: Portable AP view of the chest FINDINGS: Cardiac silhouette is enlarged. Atherosclerosis of the aorta. No pneumothorax, pleural effusion, airs pace consolidation or overt pulmonary edema. Severe osteoarthritis of the left shoulder. Probable loo se body of the right axillary recess, 3.5 cm. Right shoulder total joint arthroplasty. IMPRESSION: Cardiomegaly without acute process. ACT 112: Negative or not required by law. The above report was generated using voice recognition software. It may contain grammatical, syntax o r spelling errors. Electronically signed by: Nain Prado M.D. 07/24/2022 8:31 AM
--- NOTE | 2022-07-24 09:15 | Hospitalist Progress Note ---
Date of Service July 24, 2022 Assessment & Plan (1) COVID-19: Plan: - 2 days of symptoms, patient feeling generally weak with productive cough. no pulmonary symptoms - UTD on COVID vaccines. - CXR not with infiltrates - Isolation precautions. - Lovenox for VTE ppx. - Currently > 95% on RA, not a candidate for remdesivir or steroids. - Supportive care: Tylenol for pain/fevers, DuoNeb q4h prn, incentive spirometry. (2) Elevated troponin: Plan: - HS trop elevated at 33 upon presentation, 31.3->40.5->39.6 - Patient without chest pain or other anginal equivalent symptoms. 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 - He is on Plavix. - Residual RLE weakness. - Head CT without evidence of infarct, on exam patient is without any new focal deficits. (4) Senile dementia: Plan: - Continue memantine and donepezil. - - Patient is completely dependent on family for 05/06 care and they have expressed interest in patient being evaluated for possible placement to a facility. - PT/OT to eval and treat. (5) Dyslipidemia: Plan: - Continue statin. (6) Benign prostatic hyperplasia: Plan: - Continue Flomax, finasteride. - PVR scans as needed. Plan - Lovenox for VTE ppx. - DNR/DNI. Admission and Anticipated Discharge Date Admission Date: July 23, 2022 Subjective Pt is pleasantly confused, is not with any respiratory distress Review of Systems Review of Systems: Unobtainable due to cognitive status Constitutional: he looks comfortable and seems to be in no distress Physical Exam Physical Exam: The patient appeared stable Vital signs as documented. Lungs are clear to auscultation and appear unlabored Cardiac exam, Rhythm is regular.. No murmurs, rubs or gallops. Abdominal exam reveals normal bowel sounds, soft non tender, no masses Extremities are nonedematous and both pedal pulses are normal. Neurologic exam is alert and oriented, he does have some RLE weakness compared to left Skin is without bruises or rashes Psychologically is without concerns for anxiety or depression. Results & Data Results & Data ([facility]) Vital Signs (Past 12 Hours) Vital Signs Temp Pulse Pulse Resp BP BP Pulse Ox 07/24/22 07:48 97.3 F L 75 18 136/75 92 07/24/22 07:06 76 07/24/22 03:36 99.3 F 88 18 131/72 93 07/23/22 21:54 88 07/23/22 23:00 98.4 F 95 H 18 152/81 H 95 07/23/22 22:10 88 O2 Del Method 07/24/22 07:48 Room Air 07/24/22 07:06 07/24/22 03:36 Room Air 07/23/22 21:54 07/23/22 23:00 Room Air 07/23/22 22:10 PG Care Time/CCT Total # of Minutes Spent Total Time Spent with Patient: Total time spent is greater than 50% in coordination of care (as documented) at patient's floor/unit and/or counseling patient: Coding Level of Care Code 86267 Subseq Hosp Care Lvl 2 Diagnoses COVID-19 U07.1 Elevated troponin R77.8 History of CVA (cerebrovascular accident) Z86.73 Senile dementia F03.90 Dyslipidemia E78.5 Benign prostatic hyperplasia N40.0
[2022-07-24] MEDS ORDERED: MICONAZOLE NITRATE POWDER 43 GM EXT PRN (19:39)
[2022-07-24] MEDS: ENOXAPARIN INJ 40 MG/0.4 ML SYR SQ SCH (20:08)
[2022-07-24] MEDS: SIMVASTATIN 40 MG TAB PO SCH (20:11)
[2022-07-25] MEDS: LEVOTHYROXINE SODIUM 88 MCG TABLET PO SCH (06:00)
[2022-07-25] MEDS: CLOPIDOGREL BISULFATE 75 MG TAB PO SCH (07:35)
[2022-07-25] MEDS: DONEPEZIL HCL 10 MG TAB PO SCH (07:37)
[2022-07-25] MEDS: FINASTERIDE 5 MG TAB PO SCH (07:37)
[2022-07-25] MEDS: GLUCOSAMINE SULFATE 500 MG CAP PO SCH ×2 (07:37→17:17)
[2022-07-25] MEDS: TAMSULOSIN HCL 0.4 MG CAP PO SCH (07:37)
[2022-07-25] MEDS: MEMANTINE HCL 10 MG TAB PO SCH ×2 (07:37→20:22)
--- NOTE | 2022-07-25 16:13 | Electrocardiogram Report ---
Test Reason : Blood Pressure : / mmHG Vent. Rate : 084 BPM Atrial Rate : 084 BPM P-R Int : 186 ms QRS Dur : 078 ms QT Int : 364 ms P-R-T Axes : 007 -30 064 degrees QTc Int : 430 ms Poor data quality, interpretation may be adversely affected Sinus rhythm with occasional Premature ventricular complexes Left axis deviation Cannot rule out Inferior infarct , age undetermined T wave abnormality, consider anterior ischemia Abnormal ECG No previous ECGs available Confirmed by Alessandro Lucio ([id number]) on 07/25/2022 4:13:37 PM Referred By: REFERRED SELF Confirmed By:Alessandro Lucio
--- NOTE | 2022-07-25 18:56 | Hospitalist Progress Note ---
Date of Service July 25, 2022 Assessment & Plan (1) COVID-19: Plan: - 2 days of symptoms, patient feeling generally weak with productive cough. no pulmonary symptoms - UTD on COVID vaccines. - CXR not with infiltrates - Isolation precautions. - Lovenox for VTE ppx. - Currently > 95% on RA, not a candidate for remdesivir or steroids. - Supportive care: Tylenol for pain/fevers, DuoNeb q4h prn, incentive spirometry. (2) Elevated troponin: Plan: - HS trop elevated at 33 upon presentation, 31.3->40.5->39.6 - Patient without chest pain or other anginal equivalent symptoms. 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 - He is on Plavix. - Residual RLE weakness. - Head CT without evidence of infarct, on exam patient is without any new focal deficits. (4) Senile dementia: Plan: - Continue memantine and donepezil. - - Patient is completely dependent on family for 05/06 care and they have expressed interest in patient being evaluated for possible placement to a facility. - PT/OT , 6 clicks score is 11 will need rehab (5) Dyslipidemia: Plan: - Continue statin. (6) Benign prostatic hyperplasia: Plan: - Continue Flomax, finasteride. - PVR scans as needed. Plan - Lovenox for VTE ppx. - DNR/DNI. Admission and Anticipated Discharge Date Admission Date: July 23, 2022 Subjective Pt is pleasantly confused, is not with any respiratory distress only oriented x 1 Review of Systems Review of Systems: Unobtainable due to cognitive status Constitutional: he looks comfortable and seems to be in no distress Physical Exam Physical Exam: The patient appeared stable Vital signs as documented. Lungs are clear to auscultation and appear unlabored Cardiac exam, Rhythm is regular.. No murmurs, rubs or gallops. Abdominal exam reveals normal bowel sounds, soft non tender, no masses Extremities are nonedematous and both pedal pulses are normal. Neurologic exam is alert and oriented, he does have some RLE weakness compared to left Skin is without bruises or rashes Psychologically is without concerns for anxiety or depression. Results & Data Results & Data ([facility]) Vital Signs (Past 12 Hours) Vital Signs Temp Pulse Pulse Resp BP Pulse Ox O2 Del Method 07/25/22 16:40 75 07/25/22 12:13 98.1 F 76 18 113/71 92 Room Air 07/25/22 08:25 92 H PG Care Time/CCT Total # of Minutes Spent Total Time Spent with Patient: Total time spent is greater than 50% in coordination of care (as documented) at patient's floor/unit and/or counseling patient: Coding Level of Care Code 29350 Subseq Hosp Care Lvl 2 Diagnoses COVID-19 U07.1 Elevated troponin R77.8 History of CVA (cerebrovascular accident) Z86.73 Senile dementia F03.90 Dyslipidemia E78.5 Benign prostatic hyperplasia N40.0
[2022-07-25] MEDS: ENOXAPARIN INJ 40 MG/0.4 ML SYR SQ SCH (20:21)
[2022-07-25] MEDS: SIMVASTATIN 40 MG TAB PO SCH (20:22)
[2022-07-26] MEDS: LEVOTHYROXINE SODIUM 88 MCG TABLET PO SCH (05:49)
[2022-07-26] MEDS: MEMANTINE HCL 10 MG TAB PO SCH (09:12)
[2022-07-26] MEDS: FINASTERIDE 5 MG TAB PO SCH (09:12)
[2022-07-26] MEDS: CLOPIDOGREL BISULFATE 75 MG TAB PO SCH (09:12)
[2022-07-26] MEDS: GLUCOSAMINE SULFATE 500 MG CAP PO SCH (09:12)
[2022-07-26] MEDS: TAMSULOSIN HCL 0.4 MG CAP PO SCH (09:12)
[2022-07-26] MEDS: DONEPEZIL HCL 10 MG TAB PO SCH (09:12)
[2022-07-26 09:42] LABS: Est GFR (African American) 94.7 ml/min; Est GFR (Non-African American) 81.7 ml/min
--- NOTE | 2022-07-26 14:30 | Discharge Summary ---
Date of Service July 26, 2022 Admission HPI Per Admitting Provider Wally Duffy is a 81-year-old male with past medical history significant for a hemorrhagic CVA several years ago, dementia, BPH, hypothyroidism, and hyperlipidemia who presents today from home with his family due to weakness. For the past 2 days he has been more confused than baseline, and just seems generally ill. His son is his primary caregiver and while patient requires near total assistance with ADLs, he is usually able to participate somewhat and is typically conversational, however, he has been less responsive and seems too weak to move in bed at all. He also notes that he has been coughing for the past day and his lungs sound "rattly". History from patient is limited due to severe dementia, however he voices no complaints. Upon presentation, patient is hemodynamically stable, his VS are wnl. He is COVID positive, labs also significant for leukocytosis w/ a WBC 14. HS troponin slightly elevated at 33, otherwise labs are unremarkable. Due to history of hemorrhagic CVA and increased confusion, head CT was obtained which is unremarkable for any acute process. A CXR is currently pending. Principal Diagnosis covid infection with metabolic encepalopathy dementia deconditioning Discharge Exam The patient appeared stable, he is oriented x1 Vital signs as documented. Lungs are clear to auscultation and appear unlabored Cardiac exam, Rhythm is regular.. no murmurs are heard Discharge Data Allergies Allergy/AdvReac Type Severity Reaction Status Date / Time No Known Allergies Allergy Unverified 09/01/21 15:03 Consultations 07/23/22 20:00 ED Decision to Admit Stat Ordered Studies 07/23/22 18:41 CT head/brain wo con Stat Hospital Course (1) COVID-19: - 2 days of symptoms pre admission, patient feeling generally weak with non productive cough. no other pulmonary symptoms - UTD on COVID vaccines. - CXR without changes or infiltrates - Isolation precautions. - Lovenox for VTE ppx. - Currently > 95% on RA, not a candidate for remdesivir or steroids. - Supportive care: Tylenol for pain/fevers, encourage pulmonary incentive spirometry and prone sleeping (2) Elevated troponin: - HS trop elevated at 33 upon presentation, 31.3->40.5->39.6 - Patient without chest pain or other anginal equivalent symptoms. this is demand ischemia - (3) History of CVA (cerebrovascular accident): - History of multiple CVAs per family, with one of them apparently hemorrhagic several years ago. - He is on Plavix. - Residual RLE weakness. - Head CT without evidence of infarct, on exam patient is without any new focal deficits. (4) Senile dementia: - Continue memantine and donepezil. - - Patient is completely dependent on family for 24/7 care and they have expressed interest in patient being evaluated for possible rehab to improve function to assist at home with some care - PT/OT , 6 clicks score is 11 will need rehab (5) Dyslipidemia: - Continue statin. (6) Benign prostatic hyperplasia: - Continue Flomax, finasteride. - PVR scans as needed. Plan - Lovenox for VTE ppx. - DNR/DNI. Total Time Total Time Spent Total Time Spent (In Minutes): It required greater than 30 minutes to prepare this patient for discharge Discharge Plan Discharge Items Patient Disposition: Transfer Acute Care Hospital Reason For Visit: COVID 19 Discharge Diagnosis: covid infection weakness dementia Activity: Per Instructions section Activity Comment: per PT/OT Non-emergency contact: Primary Care Provider Call non-emergency contact if: your symptoms worsen Follow-up/Referrals: Leonid Nj MD [Primary Care Provider] - Diet: Regular Addtl Attending Provider Instructions: this pt seems very demented. no signs of covid pneumonia please follow your facility isolation precautions initial ua was not significantly changed, did not culture, assumed encephalopathy was from covid Pending Studies at Discharge: No Stand-Alone Forms: My [facility] Skilled Items Patient informed of condition?: Yes DNR: Yes Discharge Level of Care: Skilled Communicable Disease: Yes Discharge Prognosis: Stable Lines: None Urinary Catheter: No Medications and DC Order Prescriptions: Continued Centrum Silver 0.4-300-250 mg-mcg-mcg tablet 1 tab PO DAILY Qty: 30 0RF simvastatin 40 mg tablet See Rx Instructions .ROUTE QPM Qty: 90 3RF Dose Instruction: TAKE 1 TABLET AT BEDTIME Rx Instructions: TAKE 1 TABLET AT BEDTIME; daily in the evening; clopidogrel 75 mg tablet 75 mg PO DAILY Qty: 90 3RF levothyroxine 88 mcg tablet 88 mcg PO DAILY Qty: 30 11RF donepezil 10 mg tablet 10 mg PO DAILY Qty: 30 11RF tamsulosin 0.4 mg capsule 0.4 mg PO DAILY Qty: 90 3RF memantine 10 mg tablet 10 mg PO BID Qty: 60 11RF finasteride 5 mg tablet 5 mg PO DAILY Qty: 90 3RF glucosamine-chondroitin [Osteo Bi-Flex] 250-200 mg tablet 1 tab PO BID Rx Instructions: give after food/meal vitamin E (dl, acetate) 90 mg (200 unit) capsule 268 unit PO DAILY (DME) Wheelchair (Manual) Device See Rx Instructions .Route Qty: 1 0RF Rx Instructions: As directed (DME) diaper,brief,adult,disposable Misc See Rx Instructions .Route Qty: 120 11RF Rx Instructions: Diaper type. SIZE MEDIUM/LARGE (DME) underpads [Bed Underpads] Pad See Rx Instructions .Route Qty: 100 11RF Rx Instructions: Change as needed Discharge Orders: Discharge Order (Routine); Ordered 07/26/22 Ordered By: Brian Melo Admission Data Admit Date/Time: 07/23/22 20:20 Attending Provider: Anshu Restrepo Admit Provider: Bri Farias Primary Care Provider: Leonid Nj Other Providers: Bri Farias ; [facility] Other Interventions: Discharge Summary Assessment (RN) Last Done: 07/26/22 13:10 Coding Level of Care Code D/C DAY MANAGEMENT >30 MINS Diagnoses COVID-19 U07.1 Elevated troponin R77.8 History of CVA (cerebrovascular accident) Z86.73 Senile dementia F03.90 Dyslipidemia E78.5 Benign prostatic hyperplasia N40.0
== END 2022-07-26 15:06 | DRG 177 ==
LOC: ED 18:35 → 2W 20:20 → SUATTDRO 20:20 → 2W 21:17
DX: E03.9 Hypothyroidism, unspecified; G93.41 Metabolic encephalopathy; Z66 Do not resuscitate; N40.1 Benign prostatic hyperplasia with lower urinary tract symptoms; F03.90 Unspecified dementia, unspecified severity, without behavioral disturbance, psychotic disturbance, mood disturbance, and anxiety; I24.8 Other forms of acute ischemic heart disease; U07.1 COVID-19; E78.5 Hyperlipidemia, unspecified; I69.341 Monoplegia of lower limb following cerebral infarction affecting right dominant side; Z79.02 Long term (current) use of antithrombotics/antiplatelets

== ENCOUNTER 2022-09-21 18:22 | Inpatient (IN) ==
[2022-09-21] MEDS ORDERED: SODIUM CHLORIDE 0.9% 500 ML IV SCH (19:45)
[2022-09-21] MEDS ORDERED: LORazepam 1 MG/1 ML SYR IV STA ×2 (19:57→21:40)
--- NOTE | 2022-09-21 20:04 | Emergency Department Note ---
Impression & Plan Weakness, Acute confusion, Combative behavior, Acute UTI ED Provider Note NAME: MARY GRACE BLAKELY AGE: 81 SEX: M : 1940 ARRIVES VIA: Ambulance INFORMANT: [Patient][nursing, ems] ED PROVIDER(S): [Chris Antunez MD] CHIEF COMPLAINT: Illness HISTORY OF PRESENT ILLNESS: The patient is a 81-year-old male who has had 3 weeks of decline. He is weak, he cannot care for himself and his family cannot care for him. He has been combative and altered at times. He had COVID 3 weeks ago and has been doing poorly ever since. No reported fever, no cough, no vomiting or diarrhea. The patient is confused, no one from his family is at bedside, no further history obtainable given the mental state REVIEW OF SYSTEMS: Unobtainable given the mental state. PMHx/PSHx: See Below SOCIAL HISTORY: See Below. PHYSICAL EXAM: GENERAL: Patient is in no acute distress. HEENT: No acute trauma, normocephalic atraumatic, mucous membranes moist, no nasal congestion, no scleral icterus. NECK: No stridor, no adenopathy, no meningismus, trachea is midline. LUNGS: Clear to auscultation bilaterally, no wheeze, no rhonchi, breath sounds equal. HEART: Without murmurs gallops or rubs, regular rate and rhythm. ABDOMEN: Soft, nontender, bowel sounds positive, no peritonitis. EXTREMITIES: No cyanosis or edema, full range of motion of all the joints without pain or difficulty, no signs for acute trauma. NEUROLOGIC: At times combative, awake, moves all extremities. No speech slur SKIN: No rash, no jaundice, no diaphoresis. DIFFERENTIAL DIAGNOSIS: Infection, dehydration, metabolic abnormality, COVID-19, influenza, dementia, UTI, hypo/hyperglycemia, electrolyte disturbance, anemia, hypoxia, cardiac sources, intracerebral event, toxicologic issues, stroke, TIA, as well as other pathologies. EMERGENCY DEPARTMENT COURSE/PROCEDURES: ECG: Indication was weakness. The ECG shows a sinus rhythm with PVCs. The rate is 80. There are flattened T waves in the anterior and lateral leads. There is some baseline artifact. No ST elevation. The QTc is 445. Compared to an ECG from 23 July 2022, I see no significant change. Continuous Cardiac Monitoring: An order was placed for continuous cardiac monitoring. The monitor shows a rate of 78 with sinus rhythm with PVCs. Critical Care Note: I have personally spent 43 minutes of critical care time in the direct management of this patient. This includes bedside care, interpretation of diagnostic studies, and testing, discussion with consultants, patient, and family members, and other required patient management activities. This 43 minutes is in excess of all separately billable procedures. MEDICAL DECISION MAKING: There is a mild leukocytosis, this could be consistent with infection although, lately, the white count has been slightly elevated. There is a normal hemoglobin and platelet count. No renal failure or significant electrolyte abnormality. Initial lactic acid level was elevated consistent with dehydration and/or infection. Repeat lactic acid level was normal. No concerning liver enzyme elevation. No evidence for issues with the thyroid. ECG showed a sinus rhythm, no obvious acute ST elevation/ischemia. Cardiac enzyme testing x1 was not consistent with acute cardiac injury. Urinalysis is consistent with infection. COVID, influenza and RSV test were negative. Chest x-ray did not show pneumonia or pneumothorax. Brain CT showed no acute bleed or mass-effect. Patient was given 1.5 L of IV saline, he received IV ceftriaxone as antibiotic coverage. He received a total of 1 mg of IV Ativan and 2.5 mg of IV Haldol. The Ativan and Haldol was given for agitation. The patient's family can no longer care for him. He cannot care for himself. He does show confusion and sometimes combative behavior. He has a white count elevation and appears to have UTI. I do think hospitalization would be warranted. I spoke with the patient, I talked to case management, the on-call hospitalist was consulted. Past Med/Surg History Medical History Benign prostatic hyperplasia with lower urinary tract symptoms Diverticulosis of colon Elevated troponin Gait disturbance, post-stroke Hypothyroidism Impaired fasting glucose Osteoporosis Periodic limb movement disorder Stenosis, cervical spine Stroke, hemorrhagic Tremor Surgical History History of colonoscopy (12/02/15) Dr. Lee, sigmoid diverticulosis, no polyps. Due to age, no repeat necessary for screening. Family History Father Myocardial infarction Denies family history of Ovarian cancer Prostate cancer Breast cancer Colorectal cancer Social History Smoking Status: Unknown if ever smoked Second Hand Exposure: No; Hx Alcohol Use: No Hx Substance Use: No Preferred Language: Chinese Communication Ability: Impaired Visual Impairment: No Limitations Hearing Ability: Use of Hearing Aid [employer] Required: No Beliefs That Will Affect Care: None marital status: Current Living Situation: Spouse current occupational status: retired Feels Safe at Home: Yes Dental Care, Regularly: Yes Physical Activity Frequency: Does not Exercise Seatbelt Use: always Sunscreen Use: No Assistive Devices: Walker Allergies Allergies Allergy/AdvReac Type Severity Reaction Status Date / Time No Known Allergies Allergy Unverified 09/21/22 20:38 Home Meds Home Medications Medication Instructions Recorded Confirmed glucosamine-chondroitin 250 mg-200 1 tab PO BID 08/27/20 09/21/22 mg tablet (Osteo Bi-Flex) vitamin E (dl, acetate) 90 mg (200 268 unit PO DAILY 09/01/21 09/21/22 unit) capsule Previous Rx's Medication Instructions Recorded olijhhft-ycs-uykus acid 0.4 1 tab PO DAILY #30 tabs 06/01/19 mg-lycopene 300 mcg-lutein 250 mcg tablet (Centrum Silver) simvastatin 40 mg tablet See Rx Instructions .Route QPM #90 03/31/22 tabs clopidogrel 75 mg tablet 75 mg PO DAILY #90 tabs 04/27/22 donepezil 10 mg tablet 10 mg PO DAILY #30 tabs 05/23/22 levothyroxine 88 mcg tablet 88 mcg PO DAILY #30 tabs 05/23/22 Wheelchair (Manual) #1 ea 06/06/22 diaper,brief,adult,disposable #120 ea 06/06/22 underpads (Bed Underpads) #100 ea 06/06/22 tamsulosin 0.4 mg capsule 0.4 mg PO DAILY #90 caps 06/17/22 memantine 10 mg tablet 10 mg PO BID #60 tabs 06/27/22 finasteride 5 mg tablet 5 mg PO DAILY #90 tabs 07/20/22 Results & Data (ED) Vital Signs Vital Signs - 24 hr 09/21/22 18:40 09/21/22 20:39 09/21/22 18:44 Temperature 36.8 C Temperature Source Oral Pulse Rate 78 70 Pulse Rate from SpO2 Sensor 66 Pulse Rhythm Regular Pulse Strength Normal Respiratory Rate 10 L 14 Respiratory Effort / Characteristics Non-Labored Respiratory Depth Normal Respiratory Pattern Regular Blood Pressure 124/89 Blood Pressure Mean 100 Blood Pressure Position Lying Pulse Oximetry 97 96 95 Oxygen Delivery Method Room Air Room Air Sepsis Recent Fever Within 48 Hours No Sepsis New/Unexplained Change in Mental Status No Sepsis Action Taken by Nursing No Action Required 09/21/22 19:00 09/21/22 19:01 09/21/22 19:01 Temperature Temperature Source Pulse Rate 71 70 Pulse Rate from SpO2 Sensor 71 46 L Pulse Rhythm Pulse Strength Respiratory Rate 10 L 19 Respiratory Effort / Characteristics Respiratory Depth Respiratory Pattern Blood Pressure 118/73 Blood Pressure Mean 88 Blood Pressure Position Pulse Oximetry 96 96 Oxygen Delivery Method Sepsis Recent Fever Within 48 Hours Sepsis New/Unexplained Change in Mental Status Sepsis Action Taken by Nursing 09/21/22 19:30 09/21/22 19:31 09/21/22 19:31 Temperature Temperature Source Pulse Rate 72 68 Pulse Rate from SpO2 Sensor 61 61 Pulse Rhythm Pulse Strength Respiratory Rate 13 14 Respiratory Effort / Characteristics Respiratory Depth Respiratory Pattern Blood Pressure 111/74 Blood Pressure Mean 86 Blood Pressure Position Pulse Oximetry 95 97 Oxygen Delivery Method Sepsis Recent Fever Within 48 Hours Sepsis New/Unexplained Change in Mental Status Sepsis Action Taken by Nursing 09/21/22 20:00 09/21/22 20:01 09/21/22 20:01 Temperature Temperature Source Pulse Rate 75 70 Pulse Rate from SpO2 Sensor 55 L 70 Pulse Rhythm Pulse Strength Respiratory Rate 19 19 Respiratory Effort / Characteristics Respiratory Depth Respiratory Pattern Blood Pressure 130/80 Blood Pressure Mean 96 Blood Pressure Position Pulse Oximetry 97 97 Oxygen Delivery Method Sepsis Recent Fever Within 48 Hours Sepsis New/Unexplained Change in Mental Status Sepsis Action Taken by Nursing 09/21/22 20:30 09/21/22 20:30 09/21/22 21:00 Temperature Temperature Source Pulse Rate 74 Pulse Rate from SpO2 Sensor Pulse Rhythm Pulse Strength Respiratory Rate 20 Respiratory Effort / Characteristics Respiratory Depth Respiratory Pattern Blood Pressure 114/59 L 123/77 Blood Pressure Mean 77 92 Blood Pressure Position Pulse Oximetry Oxygen Delivery Method Sepsis Recent Fever Within 48 Hours Sepsis New/Unexplained Change in Mental Status Sepsis Action Taken by Nursing 09/21/22 21:00 09/21/22 21:30 09/21/22 21:30 Temperature Temperature Source Pulse Rate 74 70 Pulse Rate from SpO2 Sensor 58 L 66 Pulse Rhythm Pulse Strength Respiratory Rate 14 15 Respiratory Effort / Characteristics Respiratory Depth Respiratory Pattern Blood Pressure 131/70 Blood Pressure Mean 90 Blood Pressure Position Pulse Oximetry 98 97 Oxygen Delivery Method Sepsis Recent Fever Within 48 Hours Sepsis New/Unexplained Change in Mental Status Sepsis Action Taken by Nursing 09/21/22 22:00 09/21/22 22:00 09/21/22 22:30 Temperature Temperature Source Pulse Rate 79 74 Pulse Rate from SpO2 Sensor 70 56 L Pulse Rhythm Pulse Strength Respiratory Rate 18 19 Respiratory Effort / Characteristics Respiratory Depth Respiratory Pattern Blood Pressure 133/90 Blood Pressure Mean 104 Blood Pressure Position Pulse Oximetry 98 96 Oxygen Delivery Method Sepsis Recent Fever Within 48 Hours Sepsis New/Unexplained Change in Mental Status Sepsis Action Taken by Nursing 09/21/22 22:31 09/21/22 22:31 Temperature Temperature Source Pulse Rate 74 Pulse Rate from SpO2 Sensor 63 Pulse Rhythm Pulse Strength Respiratory Rate 14 Respiratory Effort / Characteristics Respiratory Depth Respiratory Pattern Blood Pressure 133/66 Blood Pressure Mean 88 Blood Pressure Position Pulse Oximetry 97 Oxygen Delivery Method Sepsis Recent Fever Within 48 Hours Sepsis New/Unexplained Change in Mental Status Sepsis Action Taken by Prison Medications Current Medication List: was personally reviewed by me Laboratory Data Attestation: I reviewed the patient's lab results. Result diagrams: 09/21/22 20:03 09/21/22 20:03 Lab Results 09/21/22 09/21/22 09/21/22 Range/Units 20:03 20:03 20:03 WBC 11.33 H (4.8-10.8) K/ul RBC 5.22 (4.63-6.08) M/uL Hgb 15.5 (14.0-18.0) g/dl Hct 47.2 (40.1-51.0) % MCV 90.4 (80.0-100.0) fL MCH 29.7 (25.0-34.0) pg MCHC 32.8 (32.0-36.0) g/dL RDW Std Deviation 46.8 H (36.4-46.3) fL RDW Coeff of Fabiano 14.1 (11.5-14.5) % Plt Count 280 (130-400) K/uL MPV 10.0 (9.4-12.4) fL Immature Gran % (Auto) 0.4 % Neut % (Auto) 53.1 % Lymph % (Auto) 31.2 % [place] % (Auto) 6.2 % Eos % (Auto) 8.6 % Baso % (Auto) 0.5 % Neut # (Auto) 6.01 (1.4-6.5) K/uL Lymph # (Auto) 3.54 H (1.2-3.4) K/uL [place] # (Auto) 0.70 (0.24-0.82) K/uL Eos # (Auto) 0.98 H (0-0.50) K/uL Baso # (Auto) 0.06 (0-0.2) K/uL Immature Gran # (Auto) 0.04 H (0.00-0.02) K/uL Sodium 144 (136-145) mmol/L Potassium 4.8 (3.5-5.1) mmol/L Chloride 106 (98-107) mmol/L Carbon Dioxide 30 (21-32) mmol/L Anion Gap 8 (3-11) BUN 13 (6-23) mg/dl Creatinine 1.03 (0.6-1.4) mg/dl Est Cr Clr Drug Dosing Not Reportable Est GFR ( Amer) 79.7 ml/min Est GFR (Non-Af Amer) 68.8 ml/min BUN/Creatinine Ratio 12.6 (10-20) Glucose 101 H (70-99(Fasting)) mg/dl Lactate 3.6 H* (0.4-2.0) mmol/L Calcium 10.0 (8.5-10.1) mg/dl Magnesium 1.9 (1.7-2.4) mg/dl Total Bilirubin 0.6 (0.2-1.0) mg/dl AST 25 (13-39) U/L ALT 17 (7-52) U/L Alkaline Phosphatase 68 (34-104) U/L Troponin I High Sens 12.3 D (0-20) pg/ml Total Protein 6.8 (6.0-8.3) gm/dl Albumin 3.4 (3.4-5.0) gm/dl Globulin 3.4 (2.5-4.0) gm/dl Albumin/Globulin Ratio 1.0 (0.9-2) TSH (0.300-4.500) uIu/ml Urine Color Urine Appearance (Clear) Urine pH (4.5-7.5) Ur Specific [place] (1.000-1.030) Urine Protein (Negative) Urine Glucose (UA) (Negative) Urine Ketones (Negative) Urine Blood (Negative) Urine Nitrite (Negative) Urine Bilirubin (Negative) Urine Urobilinogen (Negative) Ur Leukocyte Esterase (Negative) Urine WBC (Auto) (0-5) /hpf Urine RBC (Auto) (0-4) /hpf U Hyaline Cast (Auto) (0-5) /lpf U Epithel Cells (Auto) (0-5) /lpf Urine Bacteria (Auto) (Negative) Urine Crystals Calcium Oxalate Crystal (None Prsent) Urine Mucus (None Prsent) Urine Yeast SARS-CoV-2 (PCR) (Negative) Influenza Type A (PCR) (Neg) Influenza Type B (PCR) (Neg) RSV (RT-PCR) (Neg) 09/21/22 09/21/22 09/21/22 Range/Units 20:03 20:22 22:25 WBC (4.8-10.8) K/ul RBC (4.63-6.08) M/uL Hgb (14.0-18.0) g/dl Hct (40.1-51.0) % MCV (80.0-100.0) fL MCH (25.0-34.0) pg MCHC (32.0-36.0) g/dL RDW Std Deviation (36.4-46.3) fL RDW Coeff of Fabiano (11.5-14.5) % Plt Count (130-400) K/uL MPV (9.4-12.4) fL Immature Gran % (Auto) % Neut % (Auto) % Lymph % (Auto) % [place] % (Auto) % Eos % (Auto) % Baso % (Auto) % Neut # (Auto) (1.4-6.5) K/uL Lymph # (Auto) (1.2-3.4) K/uL [place] # (Auto) (0.24-0.82) K/uL Eos # (Auto) (0-0.50) K/uL Baso # (Auto) (0-0.2) K/uL Immature Gran # (Auto) (0.00-0.02) K/uL Sodium (136-145) mmol/L Potassium (3.5-5.1) mmol/L Chloride (98-107) mmol/L Carbon Dioxide (21-32) mmol/L Anion Gap (3-11) BUN (6-23) mg/dl Creatinine (0.6-1.4) mg/dl Est Cr Clr Drug Dosing Est GFR ( Amer) ml/min Est GFR (Non-Af Amer) ml/min BUN/Creatinine Ratio (10-20) Glucose (70-99(Fasting)) mg/dl Lactate 0.9 (0.4-2.0) mmol/L Calcium (8.5-10.1) mg/dl Magnesium (1.7-2.4) mg/dl Total Bilirubin (0.2-1.0) mg/dl AST (13-39) U/L ALT (7-52) U/L Alkaline Phosphatase (34-104) U/L Troponin I High Sens (0-20) pg/ml Total Protein (6.0-8.3) gm/dl Albumin (3.4-5.0) gm/dl Globulin (2.5-4.0) gm/dl Albumin/Globulin Ratio (0.9-2) TSH 1.968 (0.300-4.500) uIu/ml Urine Color Urine Appearance (Clear) Urine pH (4.5-7.5) Ur Specific [place] (1.000-1.030) Urine Protein (Negative) Urine Glucose (UA) (Negative) Urine Ketones (Negative) Urine Blood (Negative) Urine Nitrite (Negative) Urine Bilirubin (Negative) Urine Urobilinogen (Negative) Ur Leukocyte Esterase (Negative) Urine WBC (Auto) (0-5) /hpf Urine RBC (Auto) (0-4) /hpf U Hyaline Cast (Auto) (0-5) /lpf U Epithel Cells (Auto) (0-5) /lpf Urine Bacteria (Auto) (Negative) Urine Crystals Calcium Oxalate Crystal (None Prsent) Urine Mucus (None Prsent) Urine Yeast SARS-CoV-2 (PCR) NEGATIVE (Negative) Influenza Type A (PCR) Negative (Neg) Influenza Type B (PCR) Negative (Neg) RSV (RT-PCR) Negative (Neg) 09/21/22 Range/Units 22:49 WBC (4.8-10.8) K/ul RBC (4.63-6.08) M/uL Hgb (14.0-18.0) g/dl Hct (40.1-51.0) % MCV (80.0-100.0) fL MCH (25.0-34.0) pg MCHC (32.0-36.0) g/dL RDW Std Deviation (36.4-46.3) fL RDW Coeff of Fabiano (11.5-14.5) % Plt Count (130-400) K/uL MPV (9.4-12.4) fL Immature Gran % (Auto) % Neut % (Auto) % Lymph % (Auto) % [place] % (Auto) % Eos % (Auto) % Baso % (Auto) % Neut # (Auto) (1.4-6.5) K/uL Lymph # (Auto) (1.2-3.4) K/uL [place] # (Auto) (0.24-0.82) K/uL Eos # (Auto) (0-0.50) K/uL Baso # (Auto) (0-0.2) K/uL Immature Gran # (Auto) (0.00-0.02) K/uL Sodium (136-145) mmol/L Potassium (3.5-5.1) mmol/L Chloride (98-107) mmol/L Carbon Dioxide (21-32) mmol/L Anion Gap (3-11) BUN (6-23) mg/dl Creatinine (0.6-1.4) mg/dl Est Cr Clr Drug Dosing Est GFR ( Amer) ml/min Est GFR (Non-Af Amer) ml/min BUN/Creatinine Ratio (10-20) Glucose (70-99(Fasting)) mg/dl Lactate (0.4-2.0) mmol/L Calcium (8.5-10.1) mg/dl Magnesium (1.7-2.4) mg/dl Total Bilirubin (0.2-1.0) mg/dl AST (13-39) U/L ALT (7-52) U/L Alkaline Phosphatase (34-104) U/L Troponin I High Sens (0-20) pg/ml Total Protein (6.0-8.3) gm/dl Albumin (3.4-5.0) gm/dl Globulin (2.5-4.0) gm/dl Albumin/Globulin Ratio (0.9-2) TSH (0.300-4.500) uIu/ml Urine Color Dark Yellow Urine Appearance Cloudy A (Clear) Urine pH 5.5 (4.5-7.5) Ur Specific [place] 1.017 (1.000-1.030) Urine Protein Negative (Negative) Urine Glucose (UA) Negative (Negative) Urine Ketones Trace H (Negative) Urine Blood Negative (Negative) Urine Nitrite Negative (Negative) Urine Bilirubin Negative (Negative) Urine Urobilinogen Negative (Negative) Ur Leukocyte Esterase 2+ H (Negative) Urine WBC (Auto) >30 H (0-5) /hpf Urine RBC (Auto) 5-10 H (0-4) /hpf U Hyaline Cast (Auto) 1-5 (0-5) /lpf U Epithel Cells (Auto) 0-5 (0-5) /lpf Urine Bacteria (Auto) 1+ H (Negative) Urine Crystals Not Reportable Calcium Oxalate Crystal Present A (None Prsent) Urine Mucus Present A (None Prsent) Urine Yeast Not Reportable SARS-CoV-2 (PCR) (Negative) Influenza Type A (PCR) (Neg) Influenza Type B (PCR) (Neg) RSV (RT-PCR) (Neg) Administered Medications Discontinued Medications Haloperidol Lactate (Haloperidol Lactate 5 Mg/Ml 1 Ml Vial) 2.5 mg IV NOW STA Stop: 09/21/22 21:41 Last Admin: 09/21/22 21:58 Dose: 2.5 mg Documented By: TIMOTHY Sodium Chloride (Nss) 500 mls @ 999 mls/hr IV .Q31M [id number] Stop: 09/21/22 20:15 Last Infusion: 09/21/22 20:29 Dose: 0 mls/hr Documented By: Admin: 09/21/22 19:56 Dose: 999 mls/hr Documented By: TIMOTHY Sodium Chloride (Nss 1000ml) 1,000 mls @ 999 mls/hr IV .Q1H1M ONE Stop: 09/21/22 21:58 Last Infusion: 09/21/22 22:06 Dose: 0 mls/hr Documented By: Admin: 09/21/22 21:05 Dose: 999 mls/hr Documented By: [facility] Lorazepam (Lorazepam 1 Mg/1 Ml Syr) 0.5 mg IV NOW STA; Protocol Stop: 09/21/22 19:58 Last Admin: 09/21/22 19:59 Dose: 0.5 mg Documented By: TIMOTHY Lorazepam (Lorazepam 1 Mg/1 Ml Syr) 0.5 mg IV NOW STA; Protocol Stop: 09/21/22 21:41 Last Admin: 09/21/22 21:57 Dose: 0.5 mg Documented By: [facility] Imaging Data Radiologist's Impression: Chest X-Ray 09/21/22 19:38 XR chest 1V portable CLINICAL HISTORY: weakness COMPARISON STUDY: Chest radiograph July 23, 2022. FINDINGS: Right shoulder arthroplasty is incidentally noted. An adjacent radiodensity is unchanged. Severe osteophytosis of the left glenohumeral joint is incidentally noted. Lung volumes are normal. Lungs are clear. There is no pneumothorax or pleural effusion. Cardiac size is normal. Mild upper mediastinal widening is unchanged. There is no evidence for pulmonary edema. IMPRESSION: No acute cardiopulmonary findings. ACT 112: Negative or not required by law. Electronically signed by: Deshaun Painter M.D. 09/21/2022 8:[address] 09/21/22 19:38 CT OF THE HEAD WITHOUT CONTRAST CLINICAL HISTORY: Weakness. COMPARISON STUDY: Head CT July 23, 2022. CT DOSE: 921.40 mGy.cm TECHNIQUE: Helical axial images of the head were obtained without IV contrast. Automated exposure control was utilized for the study. A dose lowering technique was utilized adhering to the principles of ALARA. FINDINGS: This study is mildly compromised by motion artifact. White matter hypodensities are unchanged and favor small vessel disease. No acute intracran ial hemorrhage, midline shift or mass effect is present. The ventricular system is unremarkable. The basal cisterns are patent. No extra-axial collections are present. There are no findings to suggest acute dural sinus thrombosis or acute territorial infarct. No significant calvarial abnormalities are present. Visualized portions of the sinuses and mastoid air cells are clear. IMPRESSION: No acute intracranial findings. ACT 112: Negative or not required by law. Electronically signed by: Deshaun Painter M.D. 09/21/2022 8:34 PM Discharge Plan Visit Data Chief Complaint: Illness ED Provider: Chris Antunez Discharge Problem: Weakness, Acute confusion, Combative behavior, Acute UTI Patient Disposition: Admitted As Inpatient Condition: Fair Discharge Instructions Interventions: ED Discharge Assessment Last Done: 09/21/22 23:13 Forms Stand Alone Forms: My [facility] Prescriptions Prescriptions: No Action Centrum Silver 0.4-300-250 mg-mcg-mcg tablet 1 tab PO DAILY Qty: 30 0RF simvastatin 40 mg tablet See Rx Instructions .ROUTE QPM Qty: 90 3RF Dose Instruction: TAKE 1 TABLET AT BEDTIME Rx Instructions: TAKE 1 TABLET AT BEDTIME; daily in the evening; clopidogrel 75 mg tablet 75 mg PO DAILY Qty: 90 3RF levothyroxine 88 mcg tablet 88 mcg PO DAILY Qty: 30 11RF donepezil 10 mg tablet 10 mg PO DAILY Qty: 30 11RF tamsulosin 0.4 mg capsule 0.4 mg PO DAILY Qty: 90 3RF memantine 10 mg tablet 10 mg PO BID Qty: 60 11RF finasteride 5 mg tablet 5 mg PO DAILY Qty: 90 3RF glucosamine-chondroitin [Osteo Bi-Flex] 250-200 mg tablet 1 tab PO BID Rx Instructions: give after food/meal vitamin E (dl, acetate) 90 mg (200 unit) capsule 268 unit PO DAILY (DME) Wheelchair (Manual) Device See Rx Instructions .Route Qty: 1 0RF Rx Instructions: As directed (DME) diaper,brief,adult,disposable Misc See Rx Instructions .Route Qty: 120 11RF Rx Instructions: Diaper type. SIZE MEDIUM/LARGE (DME) underpads [Bed Underpads] Pad See Rx Instructions .Route Qty: 100 11RF Rx Instructions: Change as needed Referrals Referrals: Leonid Nj MD [Primary Care Provider] -
--- NOTE | 2022-09-21 20:18 | XRay Report ---
XR chest 1V portable CLINICAL HISTORY: weakness COMPARISON STUDY: Chest radiograph July 23, 2022. FINDINGS: Right shoulder arthroplasty is incidentally noted. An adjacent radiodensity is unchanged. S evere osteophytosis of the left glenohumeral joint is incidentally noted. Lung volumes are normal. Ramonita ngs are clear. There is no pneumothorax or pleural effusion. Cardiac size is normal. Mild upper media stinal widening is unchanged. There is no evidence for pulmonary edema. IMPRESSION: No acute cardiopulmonary findings. ACT 112: Negative or not required by law. Electronically signed by: Deshaun Painter M.D. 09/21/2022 8:16 PM
[2022-09-21 20:32] LABS: Basophils # (auto) 0.06 K/uL (0-0.2); Basophils % (auto) 0.5 %; Eosinophils # (auto) 0.98 K/uL (0-0.50); Eosinophils % (auto) 8.6 %; Hematocrit (blood only) 47.2 % (40.1-51.0); Hemoglobin 15.5 g/dl (14.0-18.0); Immature Granulocytes # (auto) 0.04 K/uL (0.00-0.02); Immature Granulocytes % (auto) 0.4 %; Lymphocytes # (auto) 3.54 K/uL (1.2-3.4); Lymphocytes % (auto) 31.2 %; Mean Corpuscular Hemoglobin 29.7 pg (25.0-34.0); Mean Corpuscular Hgb Conc 32.8 g/dL (32.0-36.0); Mean Corpuscular Volume 90.4 fL (80.0-100.0); Monocytes % (auto) 6.2 %; Neutrophils # (auto) 6.01 K/uL (1.4-6.5); Neutrophils % (auto) 53.1 %; Platelet Count 280 K/uL (130-400); RDW Coefficient of Variation 14.1 % (11.5-14.5); RDW Standard Deviation 46.8 fL (36.4-46.3); Red Blood Count 5.22 M/uL (4.63-6.08); White Blood Count 11.33 K/ul (4.8-10.8)
--- NOTE | 2022-09-21 20:36 | CT Scan Report ---
CT OF THE HEAD WITHOUT CONTRAST CLINICAL HISTORY: Weakness. COMPARISON STUDY: Head CT July 23, 2022. CT DOSE: 921.40 mGy.cm TECHNIQUE: Helical axial images of the head were obtained without IV contrast. Automated exposure con trol was utilized for the study. A dose lowering technique was utilized adhering to the principles o f ALARA. FINDINGS: This study is mildly compromised by motion artifact. White matter hypodensities are unchang ed and favor small vessel disease. No acute intracranial hemorrhage, midline shift or mass effect is present. The ventricular system is unremarkable. The basal cisterns are patent. No extra-axial collec tions are present. There are no findings to suggest acute dural sinus thrombosis or acute territorial infarct. No significant calvarial abnormalities are present. Visualized portions of the sinuses and mastoid air cells are clear. IMPRESSION: No acute intracranial findings. ACT 112: Negative or not required by law. Electronically signed by: Deshaun Painter M.D. 09/21/2022 8:34 PM
[2022-09-21 20:48] LABS: Alanine Aminotransferase 17 U/L (7-52); Albumin Level 3.4 gm/dl (3.4-5.0); Alkaline Phosphatase 68 U/L (34-104); Anion Gap 8 (3-11); Aspartate Aminotransferase 25 U/L (13-39); BUN Creatinine Ratio 12.6 (10-20); Bilirubin,Total 0.6 mg/dl (0.2-1.0); Blood Urea Nitrogen 13 mg/dl (6-23); Carbon Dioxide 30 mmol/L (21-32); Chloride 106 mmol/L (98-107); Est GFR (African American) 79.7 ml/min; Est GFR (Non-African American) 68.8 ml/min; Globulin 3.4 gm/dl (2.5-4.0); Glucose 101 mg/dl (70-99(Fasting)); Magnesium 1.9 mg/dl (1.7-2.4); Potassium 4.8 mmol/L (3.5-5.1); Sodium 144 mmol/L (136-145); Total Protein 6.8 gm/dl (6.0-8.3)
[2022-09-21 20:49] LABS: Troponin I High Sensitivity 12.3 pg/ml (0-20)
[2022-09-21] MEDS ORDERED: SODIUM CHLORIDE 0.9% 1000ML 1,000 ML IV ONE (20:58)
[2022-09-21 21:10] LABS: Influenza A virus by PCR Negative (Neg); Influenza B virus by PCR Negative (Neg); RSV by PCR Negative (Neg); SARS CoV2 RNA(COVID-19)Cepheid NEGATIVE (Negative)
[2022-09-21] MEDS ORDERED: HALOPERIDOL LACTATE 5 MG/ML 1 ML VIAL IV STA (21:40)
--- NOTE | 2022-09-21 21:48 | History & Physical Report ---
Date of Service September 21, 2022 Assessment & Plan (1) Acute confusion: Plan: Functional decline, dementia Patient presents with a reported ~3 week decline in functional status after recovering from covid-19 VSS, initial labs notable for elevated lactate (3.6) and trace leukocytosis (11.3); no electrolyte abnormalities, no ELEANOR, LFTs wnl CXR and CT head both negative (specific findings noted in HPI) Differential broad but includes a worsening of preexisting dementia, vascular dementia, others MRI brain routine ordered Echo ordered Haldol 2.5mg IV (x1) and lorazepam 0.5mg IV (x2) administered in ED with good effect; consider additional doses if combativeness/aggression recur Lipid profile, A1c ordered; also trend CBC, BMP CVA: continue home clopidogrel Dementia: continue home memantine, donepezil, BPH: continue home finasteride, tamsulosin HLD: continue home simvastatin Hypothyroidism: continue home levothyroxine FEN: NPO pending speech eval Code status: full code (was unable to discuss this with patient because he currently does not have capacity - needs to be revisited) DVT ppx: SCDs PT/OT: ordered Case management: consulted for complex home needs Dispo: med/surg (2) Benign prostatic hyperplasia: (3) Dyslipidemia: (4) History of CVA (cerebrovascular accident): (5) Hypothyroidism: (6) Weakness: History of Present Illness Primary Care Provider: Leonid Nj MD 81yo male with a history of dementia, CVA, HLD, hypothyroidism, and BPH presents with a ~3 week history of functional decline. History is obtained primarily via the ED physician's note and tobacco cloth reclaimer's documentation, as patient is a very poor historian. Patient was relatively independent prior to having covid about three weeks ago, but has had difficulty with ADLs since. At the time of my interview, patient reported feeling well and had no specific complaints. Patient denies recent fever, chills, headache, vision changes, CP, palpitations, SOB, edema, abdominal pain, nausea, vomiting, dysuria, hematochezia, melena, back pain, lightheadedness, dizziness, numbness, tingling, weakness, or other symptoms. Denies recent illness and recent travel. Vitals on arrival were notable for low respiratory rate (10) which subsequently improved; BP wnl, no tachy/bradycardia, patient afebrile, spO2 adequate on room air. Initial labs were notable for trace leukocytosis (11.3) and elevated lactate (3.6); no anemia, platelets wnl, no electrolyte abnormalities, creatinine not elevated, LFTs wnl, Tbili not elevated, TSH wnl, covid/influenza/RSV PCR negative. In the ED, patient received NSS 500mL bolus followed by a 1L bolus, haldol 2.5mg IV (x1), and lorazepam 0.5mg IV (x2). EKG: NSR with PVCs Imaging: CXR: no acute cardiopulmonary findings CT head: no acute intracranial findings Allergies Allergy/AdvReac Type Severity Reaction Status Date / Time No Known Allergies Allergy Unverified 09/21/22 20:38 Home Medications Medication Instructions Recorded Confirmed Type grvtlapm-fdf-uzrew acid 0.4 1 tab PO DAILY #30 tabs 06/01/19 09/21/22 Rx mg-lycopene 300 mcg-lutein 250 mcg tablet (Centrum Silver) glucosamine-chondroitin 250 mg-200 1 tab PO BID 08/27/20 09/21/22 History mg tablet (Osteo Bi-Flex) vitamin E (dl, acetate) 90 mg (200 268 unit PO DAILY 09/01/21 09/21/22 History unit) capsule simvastatin 40 mg tablet See Rx Instructions .Route QPM #90 03/31/22 09/21/22 Rx tabs clopidogrel 75 mg tablet 75 mg PO DAILY #90 tabs 04/27/22 09/21/22 Rx donepezil 10 mg tablet 10 mg PO DAILY #30 tabs 05/23/22 09/21/22 Rx levothyroxine 88 mcg tablet 88 mcg PO DAILY #30 tabs 05/23/22 09/21/22 Rx Wheelchair (Manual) #1 ea 06/06/22 06/06/22 Rx diaper,brief,adult,disposable #120 ea 06/06/22 06/06/22 Rx underpads (Bed Underpads) #100 ea 06/06/22 06/06/22 Rx tamsulosin 0.4 mg capsule 0.4 mg PO DAILY #90 caps 06/17/22 09/21/22 Rx memantine 10 mg tablet 10 mg PO BID #60 tabs 06/27/22 09/21/22 Rx finasteride 5 mg tablet 5 mg PO DAILY #90 tabs 07/20/22 09/21/22 Rx Past Med/Surg History Medical History Benign prostatic hyperplasia with lower urinary tract symptoms Diverticulosis of colon Elevated troponin Gait disturbance, post-stroke Hypothyroidism Impaired fasting glucose Osteoporosis Periodic limb movement disorder Stenosis, cervical spine Stroke, hemorrhagic Tremor Surgical History History of colonoscopy (12/02/15) Dr. Lee, sigmoid diverticulosis, no polyps. Due to age, no repeat necessary for screening. Family History Father Myocardial infarction Denies family history of Ovarian cancer Prostate cancer Breast cancer Colorectal cancer Social History Smoking Status: Never smoker Second Hand Exposure: No; Hx Alcohol Use: No Hx Substance Use: No Preferred Language: Yoruba Communication Ability: Impaired Visual Impairment: No Limitations Hearing Ability: Use of Hearing Aid Admittance Attendant Required: No Beliefs That Will Affect Care: None marital status: Current Living Situation: Spouse current occupational status: retired Feels Safe at Home: Yes Safety Concerns: Feels Safe At This Time Dental Care, Regularly: Yes Physical Activity Frequency: Does not Exercise Seatbelt Use: always Sunscreen Use: No Assistive Devices: Walker Physical Exam Physical Exam: Constitutional: well-appearing, no acute distress HEENT: NCAT, no conjunctival injection, no scleral icterus, MMM CV: regular rhythm, no murmur appreciated, extremities well-perfused, no LE edema Resp: CTABL, no wheezes/rales/rhonchi appreciated, no increased work of breathing GI: soft, nondistended, nontender, BS normoactive MSK: no gross deformities appreciated Skin: warm, dry, no rash appreciated Neuro: alert, oriented to person only (not oriented to place/time/situation), no focal neurologic deficit appreciated, strength 5/5 in UE and LE bilaterally Results & Data Results & Data ([facility]) Vital Signs (Past 12 Hours) Vital Signs Temp Pulse Resp BP Pulse Ox O2 Del Method 09/21/22 20:30 74 20 09/21/22 20:30 114/59 L 09/21/22 20:01 70 19 97 09/21/22 20:01 130/80 09/21/22 20:00 75 19 97 09/21/22 19:31 111/74 09/21/22 19:31 68 14 97 09/21/22 19:30 72 13 95 09/21/22 19:01 118/73 09/21/22 19:01 70 19 96 09/21/22 19:00 71 10 L 96 09/21/22 18:44 70 14 95 09/21/22 20:39 96 Room Air 09/21/22 18:40 36.8 C 78 10 L 124/89 97 Room Air Supervising Physician Co-Signing Physician Notes Attending addendum: I have physically seen this patient, have supervised the medical residents activities, and agree with the H&P unless as otherwise noted. 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
[2022-09-21 23:01] LABS: Appearance Urine Cloudy (Clear); Bilirubin Urine Negative (Negative); Blood Urine Negative (Negative); Color Urine Dark Yellow; Epithelial Cell Urine Auto 0-5 /lpf (0-5); Glucose Urine UA Negative (Negative); Ketones Urine Trace (Negative); Leukocyte Esterase Urine 2+ (Negative); Nitrite Urine Negative (Negative); Protein Urine Negative (Negative); Specific Gravity Urine 1.017 (1.000-1.030); Urobilinogen Urine Negative (Negative); WBC Urine Automated >30 /hpf (0-5); pH Urine 5.5 (4.5-7.5)
[2022-09-21 23:09] LABS: Bacteria Urine Automated 1+ (Negative); Calcium Oxalate Crystals Urine Present (None Prsent); Mucus Urine Present (None Prsent)
[2022-09-21] MEDS ORDERED: cefTRIAXone SODIUM 2,000 MG/70 ML BAG IV STA (23:13)
[2022-09-22] MEDS: MEMANTINE HCL 10 MG TAB PO SCH ×3 (00:47→23:18)
[2022-09-22 06:10] LABS: Hematocrit (blood only) 41.9 % (40.1-51.0); Mean Corpuscular Hemoglobin 29.2 pg (25.0-34.0); Mean Corpuscular Hgb Conc 33.4 g/dL (32.0-36.0); Mean Corpuscular Volume 87.3 fL (80.0-100.0); Mean Platelet Volume 9.8 fL (9.4-12.4); Platelet Count 232 K/uL (130-400); RDW Coefficient of Variation 14.1 % (11.5-14.5); RDW Standard Deviation 45.4 fL (36.4-46.3); White Blood Count 17.06 K/ul (4.8-10.8)
[2022-09-22] MEDS: LEVOTHYROXINE SODIUM 88 MCG TABLET PO SCH (06:10)
[2022-09-22 06:53] LABS: BUN Creatinine Ratio 13.4 (10-20); Bilirubin,Total 0.5 mg/dl (0.2-1.0); Calcium 8.6 mg/dl (8.5-10.1); Chol HDL Ratio 3.2 (0-5); Est GFR (African American) 97.5 ml/min; Est GFR (Non-African American) 84.1 ml/min; Globulin 2.9 gm/dl (2.5-4.0); Magnesium 1.6 mg/dl (1.7-2.4); Phosphorus 2.9 mg/dl (2.5-4.9); Potassium 3.8 mmol/L (3.5-5.1); Total Protein 5.9 gm/dl (6.0-8.3)
--- NOTE | 2022-09-22 07:37 | Magnetic Resonance Report ---
MRI OF THE BRAIN WITHOUT IV CONTRAST CLINICAL HISTORY: Change in mental status. Generalized weakness. COMPARISON STUDY: CT of the brain dated 09/21/2022. MRI of the brain dated 04/19/2016. TECHNIQUE: MRI of the brain was performed utilizing various T1 and T2-weighted sequences in the axial , sagittal, and coronal planes. IV contrast was not administered for this examination. The examinatio n is severely degraded by motion artifact. FINDINGS: Brain parenchyma: There is age-related involutional change noting moderate to advanced confluent subc ortical and periventricular microangiopathic disease. There is no hemorrhage or mass effect. There is no restricted diffusion typical for acute ischemia. Gu-white matter differentiation is preserved. No extra-axial fluid collection is seen. The cerebellar tonsils are normal in configuration. Ventricles, sulci, and cisterns: Prominent secondary to positional change. Pituitary and sella: Unremarkable. Intracranial vasculature: Normal flow voids are maintained at the skull base. Orbits: The bony orbits are grossly intact. Orbital contents are normal in appearance. Sinuses and mastoids: There are trace mastoid effusions. The paranasal sinuses appear clear. Calvarium: Unremarkable. Cervical cord: Partially visualized cervical spinal cord is normal in morphology and signal intensity . IMPRESSION: No acute intracranial abnormality is identified noting a severely motion compromised exam ination. ACT 112: Negative or not required by law. Electronically signed by: Chris Garrett M.D. 09/22/2022 7:34 AM
[2022-09-22 07:43] LABS: Estimated Average Glucose 100 mg/dl; Hemoglobin A1C 5.1 % (4.5-5.6)
[2022-09-22] MEDS: MAGNESIUM SULFATE / D5W 1 GM/100 ML BAG IV SCH ×2 (09:09→11:13)
[2022-09-22] MEDS: CLOPIDOGREL BISULFATE 75 MG TAB PO SCH (10:08)
[2022-09-22] MEDS: FINASTERIDE 5 MG TAB PO SCH (10:08)
[2022-09-22] MEDS: DONEPEZIL HCL 10 MG TAB PO SCH (10:08)
[2022-09-22] MEDS: TAMSULOSIN HCL 0.4 MG CAP PO SCH (10:08)
--- NOTE | 2022-09-22 14:59 | XCELERA ---
[id number]
--- NOTE | 2022-09-22 16:05 | Hospitalist Progress Note ---
Date of Service September 22, 2022 Assessment & Plan (1) Senile dementia: Plan: - With functional decline over the past 3 weeks since recovering from COVID-19 infection - Echo obtained - normal EF with hyperdynamic systolic function, ef >70%, no wma - MRI brain performed, no acute abnormality noted but severely motion compromised eval - Continue Namenda and Aricept - Currently not aggressive or combative, so no further benzos or antipsychotic meds have been required - Will consider starting on Seroquel at HS as I anticipate significant owning - Pt does appear to have an abnormal UA and increasing wbc count, will start on abx to treat for UTI - PT/OT eval - Case management consult for complex dc planning needs, anticipate will require placement - Will make pt full admit (2) Leukocytosis: Plan: - Start treatment for UTI given abnormal UA - CXR normal (3) Abnormal urinalysis: Plan: - Treat w/ Rocephin for UTI - Urine culture pending, will tailor abx once results are finalized - Maintain catheter for now - Add some gentle IVF overnight (4) Benign prostatic hyperplasia: Plan: - Continue Flomax and Proscar (5) Dyslipidemia: Plan: - Continue Simvastatin (6) Hypothyroidism: Plan: - Continue Levothyroxine - TSH WNL at 1.968 Plan As above. Repeat labs ordered for tomorrow morning. Plan d/w Dr. Corrales. Admission and Anticipated Discharge Date Admission Date: September 21, 2022 Subjective Patient seen on daily rounds this morning. He is aware he is in [facility], but not aware of the specific facility. Unsure of what brought him to the hospital but has no specific complaints. Review of Systems Review of Systems: Reliable ROS unobtainable to pt's dementia Physical Exam Physical Exam: GENERAL: 81 yo Well-developed, well-nourished elderly WM. NAD. LUNGS: Clear to auscultation bilaterally. No W/R/R. CARDIOVASCULAR: Regular rate and rhythm. No M/G/R. No JVD. ABDOMEN: Soft, non-tender and non-distended. BS normoactive x 4 quad. : Merchant in place, draining dark hanson red urine EXTREMITIES: No edema. Non-tender. Peripheral pulses +2/4. NEUROLOGIC: A&O x1 PSYCHIATRIC: Cooperative. Appropriate mood and affect. SKIN: Warm, dry, intact. No rashes or lesions. Results & Data Results & Data ([facility]) Vital Signs (Past 12 Hours) Vital Signs Temp Pulse Resp BP Pulse Ox O2 Del Method 09/22/22 15:03 36.5 C 86 16 96/64 L 97 Room Air 09/22/22 07:45 36.8 C 78 16 121/75 97 Room Air PG Care Time/CCT Total # of Minutes Spent Total Time Spent with Patient: Total time spent is greater than 50% in coordination of care (as documented) at patient's floor/unit and/or counseling patient: Coding Level of Care Code 96694 Subseq Hosp Care Lvl 2 Diagnoses Senile dementia F03.90 Leukocytosis D72.829 Abnormal urinalysis R82.90 Benign prostatic hyperplasia N40.0 Dyslipidemia E78.5 Hypothyroidism E03.9
--- NOTE | 2022-09-22 16:21 | Electrocardiogram Report ---
Test Reason : Blood Pressure : / mmHG Vent. Rate : 080 BPM Atrial Rate : 080 BPM P-R Int : 182 ms QRS Dur : 080 ms QT Int : 386 ms P-R-T Axes : 000 -18 081 degrees QTc Int : 445 ms Poor data quality, interpretation may be adversely affected Sinus rhythm with frequent Premature ventricular complexes Low voltage QRS Nonspecific ST and T wave abnormality Abnormal ECG When compared with ECG of 23-JUL-2022 18:45, No significant change was found Confirmed by Inocencio Castillo ([id number]) on 09/22/2022 4:21:14 PM Referred By: REFERRED SELF Confirmed By:Inocencio Castillo
[2022-09-22] MEDS: SODIUM CHLORIDE 0.9% 1000ML 1,000 ML IV SCH (17:00)
--- NOTE | 2022-09-22 19:14 | Billing Data ---
Date of Service September 22, 2022 Coding Level of Care Code 23022 Initial Inpt Care Lvl 3
[2022-09-22] MEDS: QUEtiapine FUMARATE 25 MG TABLET PO SCH (23:16)
[2022-09-22] MEDS: SIMVASTATIN 40 MG TAB PO SCH (23:17)
[2022-09-22] MEDS: cefTRIAXone SODIUM 2,000 MG in DEXTROSE 5% 50 ML IV SCH (23:20)
[2022-09-23] MEDS: SODIUM CHLORIDE 0.9% 1000ML 1,000 ML IV SCH ×2 (02:22→12:57)
[2022-09-23] MEDS: LEVOTHYROXINE SODIUM 88 MCG TABLET PO SCH (05:39)
[2022-09-23 06:35] LABS: Basophils # (auto) 0.05 K/uL (0-0.2); Basophils % (auto) 0.3 %; Eosinophils # (auto) 0.66 K/uL (0-0.50); Eosinophils % (auto) 4.6 %; Hematocrit (blood only) 38.4 % (40.1-51.0); Immature Granulocytes # (auto) 0.05 K/uL (0.00-0.02); Immature Granulocytes % (auto) 0.3 %; Lymphocytes # (auto) 3.91 K/uL (1.2-3.4); Mean Corpuscular Hemoglobin 29.9 pg (25.0-34.0); Mean Corpuscular Hgb Conc 33.9 g/dL (32.0-36.0); Mean Corpuscular Volume 88.3 fL (80.0-100.0); Mean Platelet Volume 9.8 fL (9.4-12.4); Monocytes # (auto) 1.22 K/uL (0.24-0.82); Monocytes % (auto) 8.4 %; Neutrophils # (auto) 8.57 K/uL (1.4-6.5); Neutrophils % (auto) 59.4 %; Platelet Count 234 K/uL (130-400); RDW Coefficient of Variation 14.3 % (11.5-14.5); RDW Standard Deviation 46.2 fL (36.4-46.3); Red Blood Count 4.35 M/uL (4.63-6.08); White Blood Count 14.46 K/ul (4.8-10.8)
[2022-09-23 07:02] LABS: BUN Creatinine Ratio 12.6 (10-20); Calcium 8.4 mg/dl (8.5-10.1); Creatinine Clr Calc Pharmacy 53.8 ml/min; Est GFR (African American) 95.1 ml/min; Est GFR (Non-African American) 82.1 ml/min; Potassium 3.4 mmol/L (3.5-5.1)
[2022-09-23] MEDS ORDERED: POTASSIUM CHLORIDE CRTAB 20 MEQ TABCR PO STA (08:30)
[2022-09-23] MEDS: CLOPIDOGREL BISULFATE 75 MG TAB PO SCH (08:37)
[2022-09-23] MEDS: DONEPEZIL HCL 10 MG TAB PO SCH (08:37)
[2022-09-23] MEDS: TAMSULOSIN HCL 0.4 MG CAP PO SCH (08:37)
[2022-09-23] MEDS: FINASTERIDE 5 MG TAB PO SCH (08:37)
[2022-09-23] MEDS: MEMANTINE HCL 10 MG TAB PO SCH ×2 (08:37→20:20)
--- NOTE | 2022-09-23 14:35 | Hospitalist Progress Note ---
Date of Service September 23, 2022 Assessment & Plan (1) Senile dementia: Plan: - With functional decline over the past 3 weeks since recovering from COVID-19 infection - Echo obtained - normal EF with hyperdynamic systolic function, ef >70%, no wma - MRI brain performed, no acute abnormality noted but severely motion compromised eval - Continue Namenda and Aricept - Currently not aggressive or combative, so no further benzos or antipsychotic meds have been required - Started Seroquel 25mg at HS on 09/22 in anticipation of significant owning - Pt does appear to have an abnormal UA and increasing wbc count, will start on abx to treat for UTI - PT/OT consulted - Case management following for dc planning and jail placement (2) Leukocytosis: Plan: - Start treatment for UTI given abnormal UA - CXR normal - Downtrending since resuming abx (3) Abnormal urinalysis: Plan: - Treat w/ Rocephin for UTI - UA with 2+ LE, >30 wbc, and 1+ bacteria, urine culture ordered - Maintain catheter for now - With gentle hydration, urine appears sub master in color, can cap fluid this afternoon - Urine cx NGTD, will continue to treat given appearance of urine and UA + leukocytosis (4) Benign prostatic hyperplasia: Plan: - Continue Flomax and Proscar (5) Dyslipidemia: Plan: - Continue Simvastatin (6) Hypothyroidism: Plan: - Continue Levothyroxine - TSH WNL at 1.968 Plan PT/OT recommending snf or 24/7 care by family. Family cannot provide this. Case management involved and referral sent to a facility. Ultimately, pt will need jail placement. Medically he is approaching readiness for dc once a facility has formally accepted. Plan d/w Dr. Corrales. Admission and Anticipated Discharge Date Admission Date: September 22, 2022 Subjective Patient seen on rounds this morning. Is resting in bed, believes today that he is in [facility] but unable to articulate the correct year or that he is in the hospital. No issues verbalized by RN. Review of Systems Review of Systems: Reliable ROS unobtainable to pt's dementia Physical Exam Physical Exam: GENERAL: 81 yo Well-developed, well-nourished elderly WM. NAD. LUNGS: Clear to auscultation bilaterally. No W/R/R. CARDIOVASCULAR: Regular rate and rhythm. No M/G/R. No JVD. ABDOMEN: Soft, non-tender and non-distended. BS normoactive x 4 quad. : Merchant in place, urine color has lightened and appears more misael today, yellow in tubing EXTREMITIES: No edema. Non-tender. Peripheral pulses +2/4. NEUROLOGIC: A&O x1 PSYCHIATRIC: Cooperative. Appropriate mood and affect. SKIN: Warm, dry, intact. No rashes or lesions. Results & Data Results & Data ([facility]) Vital Signs (Past 12 Hours) Vital Signs Temp Pulse Resp BP Pulse Ox O2 Del Method 09/23/22 07:36 37.0 C 88 16 158/79 H 95 Room Air Laboratory Results 09/23/22 06:03 09/23/22 06:03 PG Care Time/CCT Total # of Minutes Spent Total Time Spent with Patient: Total time spent is greater than 50% in coordination of care (as documented) at patient's floor/unit and/or counseling patient: Coding Level of Care Code 74404 Subseq Hosp Care Lvl 2 Diagnoses Senile dementia F03.90 Leukocytosis D72.829 Abnormal urinalysis R82.90 Benign prostatic hyperplasia N40.0 Dyslipidemia E78.5 Hypothyroidism E03.9
--- NOTE | 2022-09-23 20:12 | Communication Note ---
Date of Service: September 23, 2022 81 y/o male w/ hx of cva years ago w/ residual RLE weakness. Messaged by nurse about R arm weakness. Per [employer], also had yesterday as patient was seen unable to lift arm up. Per patient (A&Ox1 baseline), he has had this for 3-4 days. He has bruising at his right lateral hand. and endorses wrist pain. No bony ttp at wrist on exam. Decorator Inspector strength symmetrical. No obvious facial droop. Speech is fluent. He is unable to lift R arm up against gravity and not able to push R hand forward against resistance. MRI from 09/21 has severe motion artifact, but did not show acute findings. plan: follow clinically. The RUE weakness is not new this evening. Will not image wrist at this time.
[2022-09-23] MEDS: QUEtiapine FUMARATE 25 MG TABLET PO SCH (20:20)
[2022-09-23] MEDS: SIMVASTATIN 40 MG TAB PO SCH (20:20)
[2022-09-23] MEDS: cefTRIAXone SODIUM 2,000 MG in DEXTROSE 5% 50 ML IV SCH (23:15)
[2022-09-24] MEDS: LEVOTHYROXINE SODIUM 88 MCG TABLET PO SCH (05:35)
[2022-09-24 07:11] LABS: Basophils # (auto) 0.06 K/uL (0-0.2); Basophils % (auto) 0.5 %; Eosinophils # (auto) 0.87 K/uL (0-0.50); Hemoglobin 13.1 g/dl (14.0-18.0); Immature Granulocytes # (auto) 0.06 K/uL (0.00-0.02); Immature Granulocytes % (auto) 0.5 %; Lymphocytes # (auto) 3.04 K/uL (1.2-3.4); Lymphocytes % (auto) 24.4 %; Mean Corpuscular Hgb Conc 33.6 g/dL (32.0-36.0); Mean Corpuscular Volume 89.2 fL (80.0-100.0); Mean Platelet Volume 9.9 fL (9.4-12.4); Monocytes # (auto) 1.04 K/uL (0.24-0.82); Monocytes % (auto) 8.4 %; Neutrophils # (auto) 7.37 K/uL (1.4-6.5); Neutrophils % (auto) 59.2 %; Platelet Count 230 K/uL (130-400); RDW Coefficient of Variation 14.6 % (11.5-14.5); RDW Standard Deviation 47.3 fL (36.4-46.3); Red Blood Count 4.37 M/uL (4.63-6.08); White Blood Count 12.44 K/ul (4.8-10.8)
[2022-09-24 07:33] LABS: BUN Creatinine Ratio 11.1 (10-20); Calcium 8.6 mg/dl (8.5-10.1); Creatinine Clr Calc Pharmacy 57.7 ml/min; Est GFR (Non-African American) 84.5 ml/min; Potassium 3.7 mmol/L (3.5-5.1)
[2022-09-24 07:58] LABS: Vitamin B12 793 pg/ml (180-914)
[2022-09-24] MEDS: DONEPEZIL HCL 10 MG TAB PO SCH (09:06)
[2022-09-24] MEDS: TAMSULOSIN HCL 0.4 MG CAP PO SCH (09:06)
[2022-09-24] MEDS: FINASTERIDE 5 MG TAB PO SCH (09:06)
[2022-09-24] MEDS: MEMANTINE HCL 10 MG TAB PO SCH ×2 (09:06→20:57)
[2022-09-24] MEDS: CLOPIDOGREL BISULFATE 75 MG TAB PO SCH (09:07)
--- NOTE | 2022-09-24 11:22 | Hospitalist Progress Note ---
Date of Service September 24, 2022 Assessment & Plan (1) Senile dementia: Plan: - With functional decline over the past 3 weeks since recovering from COVID-19 infection - Echo obtained - normal EF with hyperdynamic systolic function, ef >70%, no wma - MRI brain performed, no acute abnormality noted but severely motion compromised eval - Continue Namenda and Aricept - Currently not aggressive or combative, so no further benzos or antipsychotic meds have been required - Started Seroquel 25mg at HS on 09/22 in anticipation of significant sundowning - Pt does appear to have an abnormal UA and increasing wbc count, will start on abx to treat for UTI - PT/OT consulted - Case management following for dc planning and correction placement (2) Leukocytosis: Plan: in conjunction with abnormal UA - Start treatment for UTI given abnormal UA, urine culture <1,000 colonies - CXR normal - Downtrending on abx - urinary catheter remains in place, will d/c (3) Right arm pain: Plan: with some mild swelling - Pt poor historian and unable to articulate specific location of pain (i.e., wrist/shoulder) - Poor ROM but has chronic RUE weakness following a CVA years ago - Tylenol PRN (4) Benign prostatic hyperplasia: Plan: - Continue Flomax and Proscar (5) Dyslipidemia: Plan: - Continue Simvastatin (6) Hypothyroidism: Plan: - Continue Levothyroxine - TSH WNL at 1.968 Plan PT/OT recommending snf or 24/7 care by family. Family cannot provide this. Case management involved and referral sent to a facility. Ultimately, pt will need correction placement. Dc conner. Medically stable for d/c when facility found and pt accepted. Plan d/w Dr. Corrales. Admission and Anticipated Discharge Date Admission Date: September 22, 2022 Subjective Patient seen on daily rounds this morning. He seems more irritable. He states that his arm is in "bad shape." RN noted that his right arm is more swollen. No known injury. The patient is unable to articulate where specifically in the arm he is having pain. Review of Systems Review of Systems: Endorses R arm pain but reliable ROS unobtainable to pt's dementia Physical Exam Physical Exam: GENERAL: 81 yo Well-developed, well-nourished elderly WM. NAD. LUNGS: Clear to auscultation bilaterally. No W/R/R. CARDIOVASCULAR: Regular rate and rhythm. No M/G/R. No JVD. ABDOMEN: Soft, non-tender and non-distended. BS normoactive x 4 quad. : Conner in place, urine color has lightened and appears more misael today, yellow in tubing EXTREMITIES: No edema. Non-tender. Peripheral pulses +2/4. Passive RUE limited ROM and some diffuse edema noted. NEUROLOGIC: A&O x1. Chronic R sided weakness (h/o cva) PSYCHIATRIC: Cooperative. Appropriate mood and affect. SKIN: Warm, dry, intact. No rashes or lesions. Results & Data Results & Data ([facility]) Vital Signs (Past 12 Hours) Vital Signs Temp Pulse Resp BP Pulse Ox O2 Del Method 09/24/22 07:25 36.6 C 70 18 131/79 97 Room Air Laboratory Results 09/24/22 06:48 09/24/22 06:48 PG Care Time/CCT Total # of Minutes Spent Total Time Spent with Patient: Total time spent is greater than 50% in coordination of care (as documented) at patient's floor/unit and/or counseling patient: Coding Level of Care Code 82025 Subseq Hosp Care Lvl 2 Diagnoses Senile dementia F03.90 Leukocytosis D72.829 Right arm pain M79.601 Benign prostatic hyperplasia N40.0 Dyslipidemia E78.5 Hypothyroidism E03.9
[2022-09-24] MEDS: QUEtiapine FUMARATE 25 MG TABLET PO SCH (20:57)
[2022-09-24] MEDS: SIMVASTATIN 40 MG TAB PO SCH (20:57)
[2022-09-24] MEDS: cefTRIAXone SODIUM 2,000 MG in DEXTROSE 5% 50 ML IV SCH (23:16)
[2022-09-25] MEDS: LEVOTHYROXINE SODIUM 88 MCG TABLET PO SCH (05:47)
[2022-09-25] MEDS: DONEPEZIL HCL 10 MG TAB PO SCH (08:16)
[2022-09-25] MEDS: MEMANTINE HCL 10 MG TAB PO SCH ×2 (08:16→20:30)
[2022-09-25] MEDS: CLOPIDOGREL BISULFATE 75 MG TAB PO SCH (08:17)
[2022-09-25] MEDS: TAMSULOSIN HCL 0.4 MG CAP PO SCH (08:17)
[2022-09-25] MEDS: FINASTERIDE 5 MG TAB PO SCH (08:17)
--- NOTE | 2022-09-25 11:15 | Hospitalist Progress Note ---
Date of Service September 25, 2022 Assessment & Plan (1) Senile dementia: Plan: - With functional decline over the past 3 weeks since recovering from COVID-19 infection - Echo obtained - normal EF with hyperdynamic systolic function, ef >70%, no wma - MRI brain performed, no acute abnormality noted but severely motion compromised eval - Continue Namenda and Aricept - Currently not aggressive or combative, so no further benzos or antipsychotic meds have been required - Started Seroquel 25mg at HS on 09/22 in anticipation of significant ing - Pt does appear to have an abnormal UA and increasing wbc count, will start on abx to treat for UTI - PT/OT consulted-advising 24/ care which family cannot provide - Case management following for dc planning and correction placement (2) Leukocytosis: Plan: in conjunction with abnormal UA - Start treatment for UTI given abnormal UA, urine culture <1,000 colonies - CXR normal - Downtrending on abx - urinary catheter remains in place, will d/c (3) Right arm pain: Plan: with some mild swelling - Pt poor historian and unable to articulate specific location of pain (i.e., wr ist/shoulder) - Poor ROM but has chronic RUE weakness following a CVA years ago - Tylenol PRN (4) Benign prostatic hyperplasia: Plan: - Continue Flomax and Proscar (5) Dyslipidemia: Plan: - Continue Simvastatin (6) Hypothyroidism: Plan: - Continue Levothyroxine - TSH WNL at 1.968 Plan PT/OT recommending snf or 24/7 care by family. Family cannot provide this. Case management involved and referral sent to a facility. Ultimately, pt will need correction placement. Dc conner. Medically stable for d/c when facility found and pt accepted. Updated POA/son, Miah on 09/25. Plan d/w Dr. Corrales. Admission and Anticipated Discharge Date Admission Date: September 22, 2022 Subjective Patient seen on daily rounds this morning. Remains confused but not as agitated this AM as yesterday. Verbalizes no complaints this AM. Review of Systems Review of Systems: Endorses R arm pain but reliable ROS unobtainable to pt's dementia Physical Exam Physical Exam: GENERAL: 81 yo Well-developed, well-nourished elderly WM. NAD. LUNGS: Clear to auscultation bilaterally. No W/R/R. CARDIOVASCULAR: Regular rate and rhythm. No M/G/R. No JVD. ABDOMEN: Soft, non-tender and non-distended. BS normoactive x 4 quad. : Conner in place, urine color has lightened and appears more misael today, yellow in tubing EXTREMITIES: No edema. Non-tender. Peripheral pulses +2/4. Passive RUE limited ROM and some diffuse edema noted. NEUROLOGIC: A&O x1. Chronic R sided weakness (h/o cva) PSYCHIATRIC: Cooperative. Appropriate mood and affect. SKIN: Warm, dry, intact. No rashes or lesions. Results & Data Results & Data ([place]) Vital Signs (Past 12 Hours) Vital Signs Temp Pulse Resp BP Pulse Ox O2 Del Method 09/25/22 07:27 36.9 C 95 H 16 120/53 L 95 Room Air PG Care Time/CCT Total # of Minutes Spent Total Time Spent with Patient: Total time spent is greater than 50% in coordination of care (as documented) at patient's floor/unit and/or counseling patient: Coding Level of Care Code 37864 Subseq Hosp Care Lvl 2 Diagnoses Senile dementia F03.90 Leukocytosis D72.829 Right arm pain M79.601 Benign prostatic hyperplasia N40.0 Dyslipidemia E78.5 Hypothyroidism E03.9
[2022-09-25 11:28] LABS: Basophils # (auto) 0.06 K/uL (0-0.2); Basophils % (auto) 0.4 %; Eosinophils # (auto) 0.58 K/uL (0-0.50); Eosinophils % (auto) 3.8 %; Hematocrit (blood only) 37.8 % (40.1-51.0); Hemoglobin 12.9 g/dl (14.0-18.0); Immature Granulocytes # (auto) 0.06 K/uL (0.00-0.02); Immature Granulocytes % (auto) 0.4 %; Lymphocytes # (auto) 2.52 K/uL (1.2-3.4); Lymphocytes % (auto) 16.6 %; Mean Corpuscular Hemoglobin 30.1 pg (25.0-34.0); Mean Corpuscular Hgb Conc 34.1 g/dL (32.0-36.0); Mean Corpuscular Volume 88.3 fL (80.0-100.0); Mean Platelet Volume 9.3 fL (9.4-12.4); Monocytes % (auto) 8.6 %; Neutrophils # (auto) 10.62 K/uL (1.4-6.5); Neutrophils % (auto) 70.2 %; Platelet Count 238 K/uL (130-400); RDW Coefficient of Variation 14.6 % (11.5-14.5); RDW Standard Deviation 46.5 fL (36.4-46.3); Red Blood Count 4.28 M/uL (4.63-6.08); White Blood Count 15.14 K/ul (4.8-10.8)
[2022-09-25] MEDS: SIMVASTATIN 40 MG TAB PO SCH (20:30)
[2022-09-25] MEDS: QUEtiapine FUMARATE 25 MG TABLET PO SCH (20:30)
[2022-09-25] MEDS: cefTRIAXone SODIUM 2,000 MG in DEXTROSE 5% 50 ML IV SCH (22:37)
[2022-09-26] MEDS: LEVOTHYROXINE SODIUM 88 MCG TABLET PO SCH (05:51)
[2022-09-26] MEDS: MEMANTINE HCL 10 MG TAB PO SCH ×2 (09:09→20:19)
[2022-09-26] MEDS: FINASTERIDE 5 MG TAB PO SCH (09:09)
[2022-09-26] MEDS: TAMSULOSIN HCL 0.4 MG CAP PO SCH (09:09)
[2022-09-26] MEDS: DONEPEZIL HCL 10 MG TAB PO SCH (09:09)
[2022-09-26] MEDS: CLOPIDOGREL BISULFATE 75 MG TAB PO SCH (09:09)
--- NOTE | 2022-09-26 10:56 | Hospitalist Progress Note ---
Date of Service September 26, 2022 Assessment & Plan (1) Senile dementia: Plan: - With functional decline over the past 3 weeks since recovering from COVID-19 infection - Echo obtained - normal EF with hyperdynamic systolic function, ef >70%, no wma - MRI brain performed, no acute abnormality noted but severely motion compromised eval - Continue Namenda and Aricept - Currently not aggressive or combative, so no further benzos or antipsychotic meds have been required - Started Seroquel 25mg at HS on 09/22 in anticipation of significant sundowning - Pt does appear to have an abnormal UA and increasing wbc count, started abx (Rocephin) to treat for UTI - PT/OT consulted-advising 24/7 care which family cannot provide - Case management following for dc planning and detention placement (2) Leukocytosis: Plan: in conjunction with abnormal UA - Start treatment for UTI given abnormal UA, urine culture <1,000 colonies - CXR normal - Downtrending on abx - urinary catheter d/c'd 09/25 - persistent smoldering wbc count - 17.06-->14.46-->12.44-->15.14 - at this point, pt is afebrile and otherwise HD stable - Urine cx <1,000 colonies and despite 5 days of abx, waxing and waning leukocytosis, stop abx - blood cultures negative - repeat blood work including cbc, bmp, mag, procal and crp ordered but pt declined (3) Right arm pain: Plan: with some mild swelling - Pt poor historian and unable to articulate specific location of pain (i.e., wrist/shoulder) - Poor ROM but has chronic RUE weakness following a CVA years ago - Tylenol PRN (4) Benign prostatic hyperplasia: Plan: - Continue Flomax and Proscar (5) Dyslipidemia: Plan: - Continue Simvastatin (6) Hypothyroidism: Plan: - Continue Levothyroxine - TSH WNL at 1.968 Plan PT/OT recommending snf or 24/7 care by family. Family cannot provide this. Case management involved and referral sent to a facility. Ultimately, pt will need computer terminal operator placement. Medically stable for d/c when facility found and pt accepted. Updated POA/son, Miah on 09/25. This pt would be ideal candidate for hospice referral once at facility given his progressive dementia, refusal for treatment/care, and ongoing functional decline. Son has appt with trust fund mix chemist on 09/27 to determine funds that are available to pay for computer terminal operator care. Plan d/w Dr. Schwartz. Admission and Anticipated Discharge Date Admission Date: September 22, 2022 Subjective Patient seen on daily rounds this morning. Confused and agitated this AM. Refused labs. Review of Systems Review of Systems: Reliable ROS unobtainable to pt's dementia and agitation Physical Exam Physical Exam: GENERAL: 81 yo Well-developed, well-nourished elderly WM. NAD. LUNGS: Clear to auscultation bilaterally. No W/R/R. CARDIOVASCULAR: Regular rate and rhythm. No M/G/R. No JVD. ABDOMEN: Soft, non-tender and non-distended. BS normoactive x 4 quad. : Merchant in place, urine color has lightened and appears more misael today, yellow in tubing EXTREMITIES: No edema. Non-tender. Peripheral pulses +2/4. Passive RUE limited ROM and some diffuse edema noted. NEUROLOGIC: A&O x1. Chronic R sided weakness (h/o cva) PSYCHIATRIC: Cooperative. Appropriate mood and affect. SKIN: Warm, dry, intact. No rashes or lesions. Results & Data Results & Data ([facility]) Vital Signs (Past 12 Hours) Vital Signs Temp Resp BP Pulse Ox O2 Del Method 09/26/22 07:12 36.8 C 16 135/77 97 Room Air Laboratory Results refused PG Care Time/CCT Total # of Minutes Spent Total Time Spent with Patient: Total time spent is greater than 50% in coordination of care (as documented) at patient's floor/unit and/or counseling patient: Coding Level of Care Code 35019 Subseq Hosp Care Lvl 2 Diagnoses Senile dementia F03.90 Leukocytosis D72.829 Right arm pain M79.601 Benign prostatic hyperplasia N40.0 Dyslipidemia E78.5 Hypothyroidism E03.9
[2022-09-26] MEDS: QUEtiapine FUMARATE 25 MG TABLET PO SCH (20:19)
[2022-09-26] MEDS: SIMVASTATIN 40 MG TAB PO SCH (20:19)
[2022-09-26] MEDS: cefTRIAXone SODIUM 2,000 MG in DEXTROSE 5% 50 ML IV SCH (22:40)
[2022-09-27] MEDS: LEVOTHYROXINE SODIUM 88 MCG TABLET PO SCH (05:48)
[2022-09-27] MEDS: CLOPIDOGREL BISULFATE 75 MG TAB PO SCH (08:45)
[2022-09-27] MEDS: TAMSULOSIN HCL 0.4 MG CAP PO SCH (08:45)
[2022-09-27] MEDS: MEMANTINE HCL 10 MG TAB PO SCH ×2 (08:45→22:48)
[2022-09-27] MEDS: FINASTERIDE 5 MG TAB PO SCH (08:45)
[2022-09-27] MEDS: DONEPEZIL HCL 10 MG TAB PO SCH (08:45)
--- NOTE | 2022-09-27 11:37 | Hospitalist Progress Note ---
Date of Service September 27, 2022 Assessment & Plan (1) Senile dementia: Plan: - With functional decline over the past 3 weeks since recovering from COVID-19 infection - Echo obtained - normal EF with hyperdynamic systolic function, ef >70%, no wma - MRI brain performed, no acute abnormality noted but severely motion compromised eval - Continue Namenda and Aricept - Currently not aggressive or combative, so no further benzos or antipsychotic meds have been required - Started Seroquel 25mg at HS on 09/22 in anticipation of significant sundowning - Pt does appear to have an abnormal UA and increasing wbc count, started abx (Rocephin) to treat for UTI - PT/OT consulted-advising 24/7 care which family cannot provide - Case management following for dc planning and snf placement (2) Leukocytosis: Plan: in conjunction with abnormal UA - Start treatment for UTI given abnormal UA, urine culture <1,000 colonies - CXR normal - Downtrending on abx - urinary catheter d/c'd 09/25 - persistent smoldering wbc count - 17.06-->14.46-->12.44-->15.14 - at this point, pt is afebrile and otherwise HD stable - Urine cx <1,000 colonies and despite 5 days of abx, waxing and waning leukocytosis, stop abx - blood cultures negative - repeat blood work including cbc, bmp, mag, procal and crp ordered on 09/26 but pt declined - Of note, has had presence of leukocytosis to some degree dating back to 03/2021 (3) Right arm pain: Plan: with some mild swelling - Pt poor historian and unable to articulate specific location of pain (i.e., wrist/shoulder) - Poor ROM but has chronic RUE weakness following a CVA years ago - Tylenol PRN (4) Benign prostatic hyperplasia: Plan: - Continue Flomax and Proscar (5) Dyslipidemia: Plan: - Continue Simvastatin (6) Hypothyroidism: Plan: - Continue Levothyroxine - TSH WNL at 1.968 Plan PT/OT recommending snf or 24/7 care by family. Family cannot provide this. Case management involved and referral sent to a facility. Ultimately, pt will need snf placement. Medically stable for d/c when facility found and pt accepted. Updated POA/son, Miah on 09/25. This pt would be ideal candidate for hospice referral once at facility given his progressive dementia, refusal for treatment/care, and ongoing functional decline. Son has appt with trust fund litigation attorney associate on 09/27 to determine funds that are available to pay for terminal carman care. Plan d/w Dr. Schwartz. Admission and Anticipated Discharge Date Admission Date: September 22, 2022 Subjective Patient seen on daily rounds this morning. Pleasantly confused, cooperative this morning. No complaints. No issues verbalized by RN. Review of Systems Review of Systems: Reliable ROS unobtainable to pt's dementia and agitation Physical Exam Physical Exam: GENERAL: 81 yo Well-developed, well-nourished elderly WM. NAD. LUNGS: Clear to auscultation bilaterally. No W/R/R. CARDIOVASCULAR: Regular rate and rhythm. No M/G/R. No JVD. ABDOMEN: Soft, non-tender and non-distended. BS normoactive x 4 quad. : Merchant in place, urine color has lightened and appears more misael today, yellow in tubing EXTREMITIES: No edema. Non-tender. Peripheral pulses +2/4. Passive RUE limited ROM d/t pain. RUE mild edema improved. NEUROLOGIC: A&O x1. Chronic R sided weakness (h/o cva) PSYCHIATRIC: Cooperative. Appropriate mood and affect. SKIN: Warm, dry, intact. No rashes or lesions. Results & Data Results & Data ([facility]) Vital Signs (Past 12 Hours) Vital Signs Temp Pulse Resp BP Pulse Ox O2 Del Method 09/27/22 07:55 36.7 C 73 18 127/74 97 Room Air PG Care Time/CCT Total # of Minutes Spent Total Time Spent with Patient: Total time spent is greater than 50% in coordination of care (as documented) at patient's floor/unit and/or counseling patient: Coding Level of Care Code 53212 Subseq Hosp Care Lvl 1 Diagnoses Senile dementia F03.90 Leukocytosis D72.829 Right arm pain M79.601 Benign prostatic hyperplasia N40.0 Dyslipidemia E78.5 Hypothyroidism E03.9
[2022-09-27] MEDS: SIMVASTATIN 40 MG TAB PO SCH (22:49)
[2022-09-27] MEDS: QUEtiapine FUMARATE 25 MG TABLET PO SCH (22:49)
[2022-09-28] MEDS: LEVOTHYROXINE SODIUM 88 MCG TABLET PO SCH (05:46)
[2022-09-28] MEDS: MEMANTINE HCL 10 MG TAB PO SCH ×2 (07:26→20:45)
[2022-09-28] MEDS: TAMSULOSIN HCL 0.4 MG CAP PO SCH (07:26)
[2022-09-28] MEDS: CLOPIDOGREL BISULFATE 75 MG TAB PO SCH (07:26)
[2022-09-28] MEDS: FINASTERIDE 5 MG TAB PO SCH (07:26)
[2022-09-28] MEDS: DONEPEZIL HCL 10 MG TAB PO SCH (07:27)
--- NOTE | 2022-09-28 11:25 | Hospitalist Progress Note ---
Date of Service September 28, 2022 Assessment & Plan (1) Senile dementia: Plan: - With functional decline over the past 3 weeks since recovering from COVID-19 infection - Echo obtained - normal EF with hyperdynamic systolic function, ef >70%, no wma - MRI brain performed, no acute abnormality noted but severely motion compromised eval - Continue Namenda and Aricept - Currently not aggressive or combative, so no further benzos or antipsychotic meds have been required - Started Seroquel 25mg at HS on 09/22 in anticipation of significant sundowning - UA appeared abnormal on admit, started abx as it was suspected metabolic encephalopathy d/t UTI could be contributing to behaviors but this was stopped after 5 days due to negative cultures - PT/OT consulted-advising 24/7 care which family cannot provide - Case management following for dc planning and jail placement (2) Leukocytosis: Plan: in conjunction with abnormal UA - Start treatment for UTI given abnormal UA, urine culture <1,000 colonies - CXR normal - Downtrending on abx - urinary catheter d/c'd 09/25 - persistent smoldering wbc count - 17.06-->14.46-->12.44-->15.14 - at this point, pt is afebrile and otherwise HD stable - Urine cx <1,000 colonies and despite 5 days of abx, waxing and waning leukocytosis, stop abx - blood cultures negative - repeat blood work including cbc, bmp, mag, procal and crp ordered on 09/26 but pt declined - Of note, has had presence of leukocytosis to some degree dating back to 03/2021 (3) Right arm pain: Plan: - Pt poor historian and unable to articulate specific location of pain (i.e., wrist/shoulder) - Poor ROM but has chronic RUE weakness following a CVA years ago - Tylenol PRN (4) Benign prostatic hyperplasia: Plan: - Continue Flomax and Proscar (5) Dyslipidemia: Plan: - Continue Simvastatin (6) Hypothyroidism: Plan: - Continue Levothyroxine - TSH WNL at 1.968 Plan PT/OT recommending snf or 24/7 care by family. Family cannot provide this. Case management involved and referral sent to a facility. Ultimately, pt will need termination clerk placement. Medically stable for d/c when facility found and pt accepted. Updated POA/son, Miah on 09/25. This pt would be ideal candidate for hospice referral once at facility given his progressive dementia, refusal for treatment/care, and ongoing functional decline. Son had appt with trust fund tax attorney on 09/27 to determine funds available to pay for termination clerk care. No changes made today. Plan d/w Dr. Rodgers. Admission and Anticipated Discharge Date Admission Date: September 22, 2022 Subjective Patient seen on daily rounds this morning. Pleasantly confused, cooperative this morning. No complaints. No issues verbalized by RN. Review of Systems Review of Systems: Reliable ROS unobtainable to pt's dementia Physical Exam Physical Exam: GENERAL: 81 yo Well-developed, well-nourished elderly WM. NAD. LUNGS: Clear to auscultation bilaterally. No W/R/R. CARDIOVASCULAR: Regular rate and rhythm. No M/G/R. No JVD. ABDOMEN: Soft, non-tender and non-distended. BS normoactive x 4 quad. : Merchant in place, urine color has lightened and appears more misael today, yellow in tubing EXTREMITIES: No edema. Non-tender. Peripheral pulses +2/4. Passive RUE limited ROM d/t pain. RUE mild edema improved. NEUROLOGIC: A&O x1. Chronic R sided weakness (h/o cva) PSYCHIATRIC: Cooperative. Appropriate mood and affect. SKIN: Warm, dry, intact. No rashes or lesions. Results & Data Results & Data ([facility]) Vital Signs (Past 12 Hours) Vital Signs Temp Pulse Resp BP O2 Del Method 09/28/22 07:20 37.2 C 74 16 121/70 Room Air PG Care Time/CCT Total # of Minutes Spent Total Time Spent with Patient: Total time spent is greater than 50% in coordination of care (as documented) at patient's floor/unit and/or counseling patient: Coding Level of Care Code 83771 Subseq Hosp Care Lvl 1 Diagnoses Senile dementia F03.90 Leukocytosis D72.829 Right arm pain M79.601 Benign prostatic hyperplasia N40.0 Dyslipidemia E78.5 Hypothyroidism E03.9
[2022-09-28] MEDS: QUEtiapine FUMARATE 25 MG TABLET PO SCH (20:45)
[2022-09-28] MEDS: SIMVASTATIN 40 MG TAB PO SCH (20:45)
[2022-09-29] MEDS: LEVOTHYROXINE SODIUM 88 MCG TABLET PO SCH (05:45)
[2022-09-29] MEDS: CLOPIDOGREL BISULFATE 75 MG TAB PO SCH (07:53)
[2022-09-29] MEDS: TAMSULOSIN HCL 0.4 MG CAP PO SCH (07:53)
[2022-09-29] MEDS: MEMANTINE HCL 10 MG TAB PO SCH (07:53)
[2022-09-29] MEDS: FINASTERIDE 5 MG TAB PO SCH (07:53)
[2022-09-29] MEDS: DONEPEZIL HCL 10 MG TAB PO SCH (07:54)
[2022-09-29] MEDS ORDERED: POLYETHYLENE (MIRALAX) 17 GM PACK PO PRN (07:56)
[2022-09-29] MEDS ORDERED: POLYETHYLENE (MIRALAX) 17 GM PACK PO SCH (09:00)
--- NOTE | 2022-09-29 09:17 | Discharge Summary ---
Date of Service September 29, 2022 Admission HPI Per Admitting Provider 81yo male with a history of dementia, CVA, HLD, hypothyroidism, and BPH who presented with a ~3 week history of functional decline. History was obtained primarily via the ED physician's note and shanker out's documentation, as patient is a very poor historian. Patient was relatively independent prior to having Covid about three weeks ago, but has had difficulty with ADLs since. At the time of my interview, patient reported feeling well and had no specific complaints. Patient denies recent fever, chills, headache, vision changes, CP, palpitations, SOB, edema, abdominal pain, nausea, vomiting, dysuria, hematochezia, melena, back pain, lightheadedness, dizziness, numbness, tingling, weakness, or other symptoms. Denies recent illness and recent travel. Vitals on arrival were notable for low respiratory rate (10) which subsequently improved; BP wnl, no tachy/bradycardia, patient remiained afebrile, spO2 adequate on room air. Initial labs were notable for trace leukocytosis (11.3) and elevated lactate (3.6); no anemia, platelets wnl, no electrolyte abnormalities, creatinine not elevated, LFTs wnl, Tbili not elevated, TSH wnl, covid/influenza/RSV PCR negative. In the ED, patient received NSS 500mL bolus followed by a 1L bolus, haldol 2.5mg IV (x1), and lorazepam 0.5mg IV (x2). EKG: NSR with PVCs Imaging: CXR: no acute cardiopulmonary findings CT head: no acute intracranial findings Admission Exam Per Admitting Provider Physical Exam: Constitutional: well-appearing, no acute distress HEENT: NCAT, no conjunctival injection, no scleral icterus, MMM CV: regular rhythm, no murmur appreciated, extremities well-perfused, no LE edema Resp: CTABL, no wheezes/rales/rhonchi appreciated, no increased work of breathing GI: soft, nondistended, nontender, BS normoactive MSK: no gross deformities appreciated Skin: warm, dry, no rash appreciated Neuro: alert, oriented to person only (not oriented to place/time/situation), no focal neurologic deficit appreciated, strength 5/5 in UE and LE bilaterally Principal Diagnosis Senile Dementia Discharge Exam Constitutional WD/WN, vitals as above Eyes PERRL, conjunctivae normal, anicteric sclerae ENMT external ear and nose normal, oropharynx normal Neck trachea midline, no thyromegaly Respiratory normal respiratory effort, lungs clear to auscultation Cardiovascular Rate/Rhythm: regular rate and regular rhythm Extremities: no calf tenderness and no edema Gastrointestinal (Abdomen) normal bowel sounds, soft, nontender, no hepatosplenomegaly Skin superficial abrasion/ skin tear on right upper arm DTI on the sacral/bilateral buttocks area Psychiatric Orientation: alert and oriented to person Discharge Data Allergies Allergy/AdvReac Type Severity Reaction Status Date / Time No Known Allergies Allergy Unverified 09/21/22 20:38 Consultations 09/21/22 21:34 ED Decision to Admit Stat Ordered Studies 09/21/22 19:38 CT head/brain wo con Stat No acute intracranial findings 09/21/22 22:57 MRI Brain [MR brain wo con] Urgent No acute intracranial abnormality is identified noting a severely motion compromised examination 09/22/22 07:03 Echocardiogram/OSVALDO 1. Normal left ventricular size with hyperdynamic anemic systolic function. EF > 70%. No regional wall motion abnormalities. No left ventricular hypertrophy. 2. No significant valvular abnormalities. 3. Normal estimated right ventricular systolic pressure. 4. Technically difficult study, enhanced with IV Definity. 5. Compared to prior study on 04/08/2021, LV systolic function is now hyperdynamic Hospital Course (1) Senile dementia: - With functional decline over the past 3 weeks since recovering from COVID-19 infection - Echo obtained - normal EF with hyperdynamic systolic function, ef >70%, no wma - MRI brain performed, no acute abnormality noted but severely motion compromised eval - Continue Namenda and Aricept - Currently not aggressive or combative, so no further benzos or antipsychotic meds have been required - Started Seroquel 25mg at HS on 09/22 in anticipation of significant sundowning - UA appeared abnormal on admit, started abx as it was suspected metabolic encephalopathy d/t UTI could be contributing to behaviors but this was stopped after 5 days due to negative cultures - PT/OT consulted-advising 24/7 care which family cannot provide - Case Management found a bed available for patient at [facility] and will be discharged to there later today (2) Leukocytosis: - in conjunction with abnormal UA - Start treatment for UTI given abnormal UA, urine culture <1,000 colonies - CXR normal - Downtrending on abx - urinary catheter d/c'd 09/25 - persistent smoldering wbc count - 17.06-->14.46-->12.44-->15.14 - at this point, pt is afebrile and otherwise HD stable - Urine cx <1,000 colonies and despite 5 days of abx, waxing and waning leukocytosis, stopped abx - blood cultures negative - repeat blood work including cbc, bmp, mag, procal and crp ordered on 09/26 but pt declined - Of note, has had presence of leukocytosis to some degree dating back to 03/2021 (3) Right arm pain: - Pt poor historian and unable to articulate specific location of pain (i.e., wrist/shoulder) - Poor ROM but has chronic RUE weakness following a CVA years ago - Tylenol PRN - Currently no complaints of any arm pain (4) Benign prostatic hyperplasia: - Continue Flomax and Proscar (5) Dyslipidemia: - Continue Simvastatin (6) Hypothyroidism: - Continue Levothyroxine - TSH WNL at 1.968 (7) Constipation: - ordered Miralax 17gm daily - can change to as needed if having multiple bowel movements Plan PT/OT recommended SNF or 24/7 care by family. Family cannot provide this. Case management involved and found a bed available at [facility] and patient will be discharged there later today. Total Time Total Time Spent Total Time Spent (In Minutes): 50 min Discharge Plan Discharge Items Patient Disposition: Transfer Alf Fac Reason For Visit: CONFUSION, FUNCTIONAL DECLINE Discharge Diagnosis: Senile Dementia Condition on Discharge: Fair Activity: As commented below Lifting: Gradually increase as tolerated Bathing: No limitations Exercise/Sports: Gradually increase as tolerated Exercise Comment: with PT/OT Weightbearing: Full weightbearing Non-emergency contact: Primary Care Provider Call non-emergency contact if: you have any medication questions, your symptoms worsen, your wound has increased redness and your wound has increased drainage Follow-up/Referrals: Leonid Nj MD [Primary Care Provider] - (please follow within 2 weeks after d/c from rehab) Diet: Regular Addtl Attending Provider Instructions: You have been discharged to a rehab and please continue PT/OT Pending Studies at Discharge: No Stand-Alone Forms: [facility] Skilled Items Patient informed of condition?: Yes DNR: Yes Discharge Level of Care: Skilled Communicable Disease: No Discharge Prognosis: Stable Lines: None Urinary Catheter: No Medications and DC Order Prescriptions: New quetiapine 25 mg Tablet 25 mg PO HS Qty: 30 0RF polyethylene glycol 3350 [Miralax] 17 gram Powder In Packet 17 g PO DAILY Qty: 30 0RF Continued Centrum Silver 0.4-300-250 mg-mcg-mcg tablet 1 tab PO DAILY Qty: 30 0RF simvastatin 40 mg tablet See Rx Instructions .ROUTE QPM Qty: 90 3RF Dose Instruction: TAKE 1 TABLET AT BEDTIME Rx Instructions: TAKE 1 TABLET AT BEDTIME; daily in the evening; clopidogrel 75 mg tablet 75 mg PO DAILY Qty: 90 3RF levothyroxine 88 mcg tablet 88 mcg PO DAILY Qty: 30 11RF donepezil 10 mg tablet 10 mg PO DAILY Qty: 30 11RF tamsulosin 0.4 mg capsule 0.4 mg PO DAILY Qty: 90 3RF memantine 10 mg tablet 10 mg PO BID Qty: 60 11RF finasteride 5 mg tablet 5 mg PO DAILY Qty: 90 3RF glucosamine-chondroitin [Osteo Bi-Flex] 250-200 mg tablet 1 tab PO BID Rx Instructions: give after food/meal vitamin E (dl, acetate) 90 mg (200 unit) capsule 268 unit PO DAILY (DME) Wheelchair (Manual) Device See Rx Instructions .Route Qty: 1 0RF Rx Instructions: As directed (DME) diaper,brief,adult,disposable Misc See Rx Instructions .Route Qty: 120 11RF Rx Instructions: Diaper type. SIZE MEDIUM/LARGE (DME) underpads [Bed Underpads] Pad See Rx Instructions .Route Qty: 100 11RF Rx Instructions: Change as needed Discharge Orders: Discharge Order (Routine); Ordered 09/29/22 Ordered By: Rachel Block/Other Patient Handouts: COVID-19 Home Care, Treating Constipation Admission Data Admit Date/Time: 09/22/22 16:06 Attending Provider: Belinda Cho Admit Provider: Bishnu Magallon Primary Care Provider: Leonid Nj Other Providers: Bishnu Magallon ; Magalis Rousseau ; Asael Weston ; [facility] ; Everette Rodgers Other Interventions: Discharge Summary Assessment (RN) Last Done: 09/29/22 10:57 Supervising Physician Co-Signing Physician Notes PA Supervision Note: I personally saw and examined the patient. I verified all sharif points and agree with DEBORAH Pat with the following exceptions and/or additions: Summary of present stay: 81-year-old male with history of dementia admitted for 3-week history of functional decline following COVID-19 infection about 3 weeks ago. Has had leukocytosis to some degree since 2020, and had urinalysis that was abnormal so was treated for UTI, however urine culture grew less than 10,000 colonies. No other evidence of infection. MRI brain performed without any acute abnormalities however was very motion compromised. Patient without any complaints on day of discharge, and able to be transitioned to [facility] for rehab on discharge, as recommendation was made for 05/06 care which family cannot provide. Patient briefly complained of arm pain during this admission, however was given Tylenol as needed and on day of discharge did not have any complaints of arm pain. Patient was ordered MiraLAX for constipation to continue on discharge. He was also started on Seroquel 25 mg at night due to , also to continue on discharge as it was very helpful for the patient. Otherwise, no chronic medication changes made. Physical exam: Vitals reviewed Gen: Alert and oriented to name only, NAD HEENT: anicteric sclerae, EOMI CV: RRR no mgr nl S1S2 Pulm: CTAB no wcr Abd: +BS soft NT ND no masses Ext: no edema, 2+ DP pulses Skin: no rashes, warm/dry Neuro: No focal neurologic deficits Labs, Rads, and ECG reviewed Coding Level of Care Code D/C DAY MANAGEMENT >30 MINS Diagnoses Senile dementia F03.90 Leukocytosis D72.829 Right arm pain M79.601 Benign prostatic hyperplasia N40.0 Dyslipidemia E78.5 Hypothyroidism E03.9 Constipation K59.00
== END 2022-09-29 13:36 | DRG 884 ==
LOC: 3N 18:22 → ED 18:22 → SUATTDRO 22:16 → 3N 23:13 → SUATTDRO 09-22 16:06

== ENCOUNTER 2024-06-15 19:35 | Inpatient (IN) ==
--- NOTE | 2024-06-15 19:46 | Emergency Department Note ---
Impression & Plan Diarrhea, Senile dementia, Weakness, A-fib ED Provider Note Provider: Keanu Hammonds MD DATE OF SERVICE: 06/15/2024 CHIEF COMPLAINT: Not taking fluid, diarrhea HISTORY OF PRESENT ILLNESS: Patient is a 83-year-old gentleman past medical history of CVA, dementia, hypothyroidism who is predominantly bedbound lives at home not on home oxygen who presents via ambulance from home. Evidently became concerned the patient was not taking fluids today and developed nonbloody diarrhea. EMS reported the patient was in the 60s on room air and seem to be hypotensive. Patient does have some chronic contracture prickly of his right arm. Awake and alert and answers questions upon arrival here. Denies chest pain or difficulty breathing. Does report some diarrhea today. No falls reported. No sick contacts reported. Obviously no travel is the patient's homebound. Has had some intermittent blood in the stool earlier in the week. later arrives and states that diarrhea since Monday. She takes care of him at home with some caregivers that visit in the morning and night. Given his ongoing diarrhea contacted doctors office to recommend evaluation here for possible dehydration. No other sick contacts reported for the patient by the . No history of A-fib reported. PAST MEDICAL HISTORY: As noted above MEDICATIONS: Reviewed home medications SOCIAL HISTORY: PHYSICAL EXAM: GENERAL: alert in no acute distress on stretcher NOT oriented to time Head: normocephalic and atraumatic EYES: No injection, discharge or icterus. EOMI. NECK: Trachea midline. Supple. ENT: Mucous membranes pink and moist. LUNGS: Airway patent. No retractions. Breath sounds clear with good air entry bilaterally. HEART: Regular rate and rhythm. No chest wall tenderness ABDOMEN: Soft maybe some slight lower abdominal discomfort. No guarding. SKIN: Acyanotic, warm, dry, with a slight grade 1 decubitus ulcer noted. EXTREMITIES: Without swelling, tenderness or deformity NEUROLOGICAL: No significant slurred speech. Significant contracture predominantly of the right upper extremity but some to the right lower extremity. Bawling up on the bed. Withdraws to pain predominantly on the left side. Answering questions some questions predominantly yes and no. EK bpm atrial fibrillation. No acute ST segment elevation or depression with a QTc of 403. Fair amount of baseline artifact CONTINUOUS CARDIAC MONITORING: was ordered and showed a heart rate of 90s bpm in what appears to be likely atrial fibrillation Patient's laboratory studies and imaging reviewed. Differential includes Infection, dehydration, metabolic abnormality, hypo/hyperglycemia, electrolyte disturbance, anemia, hypoxia, cardiac sources, intracerebral event, toxicologic, neurologic, as well as other pathologies. IMPRESSION/MEDICAL DECISION MAKING: Stool sample sent. Does not seem to be in significant distress answers questions here keenly awake. Some underlying dementia history of CVA with what appears to be chronic right-sided weakness. Some slight lower abdominal tenderness. Given the difficulty in history and weakness entertained a broad differential. CT of the head to be obtained as well as a belly CT. Chest CT obtained to exclude underlying pneumonia. Does not seem again to have an oxygen requirement this time her blood pressure is mildly hypertensive. Given a slight IV fluid bolus given some decreased intake and the reported diarrhea. Stool testing is sent. Was on antibiotics last month. EKG appears to show A-fib which believe is a new diagnosis and discussion with the . A fair amount of baseline artifact.. Blood work without significant leukocytosis or anemia. No severe electrolyte abnormality with creatinine 1.22. No evidence of acute hepatitis. Procalcitonin not significantly elevated TSH normal. Urinalysis nonspecific without bacteria. Troponin and CK are normal. Negative C. difficile testing and negative respiratory viral panel. Negative stool PCR otherwise. CT of the head stable compared to previous had acute change with some mild ventricular dilation. CT of the chest with some mild airspace opacities atypical versus interstitial lung disease. Given his lack of leukocytosis and otherwise stable respiratory appearance though this likely represents more lung disease than acute infection. Age-indeterminate thoracic compression fractures are noted with the patient is asymptomatic. CT of the abdomen pelvis no significant right-sided hydronephrosis has some findings of thickening of the rectum not excluding mass or malignancy. Some bladder calculi are noted with enlarged prostate indeterminant L2 compression fracture. No obstructing renal calculi noted. No severe findings and I do not believe I would start him on antibiotics at this time. Discussed with and family at bedside given his weakness and ongoing diarrheal issues recommend that we keep him in the hospital for supportive care. She was in agreement with this plan after long discussion. Hopefully diarrhea will be self-limited. In shared decision-making they were agreeable to stay at this time. Will defer anticoagulation given his functional status and recently having some blood in the stool. Hospitalist was contacted. DIAGNOSIS: Weakness, diarrhea, A-fib DISPOSITION: Hospitalist will evaluate Patient was agreeable with this plan. Past Med/Surg History Problem List (Updated 06/15/24 @ 23:56 by Keanu Hammonds M.D.) A-fib (Acute) Weakness (Acute) Diarrhea (Acute) Acute bronchospasm Wheeze Cough Blister (nonthermal), left foot, initial encounter Cellulitis of left foot Lack of access to transportation Bedbound Conjunctivitis Benign prostatic hyperplasia Cervical osteoarthritis Dyslipidemia Gait disturbance Senile dementia (Acute) Hypothyroidism History of CVA (cerebrovascular accident) Weakness (Acute) Combative behavior (Acute) Leukocytosis Constipation Medical History Elevated troponin Pneumonia COVID-19 Benign prostatic hyperplasia with lower urinary tract symptoms Diverticulosis of colon Gait disturbance, post-stroke Impaired fasting glucose Osteoporosis Periodic limb movement disorder Stenosis, cervical spine Stroke, hemorrhagic Tremor Medicare annual wellness visit, subsequent Encounter for health maintenance examination in adult Stroke, hemorrhagic Cervical radiculopathy Cerebral vascular accident Borderline hypertension Hx of chalazion Hx of dermatitis History of cellulitis Surgical History History of colonoscopy (12/02/15) Family History Father Myocardial infarction Denies family history of Ovarian cancer Prostate cancer Breast cancer Colorectal cancer Social History Smoking Status: Former smoker Tobacco Type: Cigarettes Second Hand Exposure: No; Do You Dip or Chew Tobacco: No; Hx Alcohol Use: No Hx Substance Use: No Preferred Language: Nigerian Communication Ability: Impaired Visual Impairment: No Limitations Hearing Ability: Use of Hearing Aid Technical System Analyst Required: No Beliefs That Will Affect Care: None marital status: Current Living Situation: Spouse current occupational status: retired Feels Safe at Home: Yes Dental Care, Regularly: Yes Physical Activity Frequency: Does not Exercise Seatbelt Use: always Sunscreen Use: No Assistive Devices: Walker Allergies Allergies Allergy/AdvReac Type Severity Reaction Status Date / Time No Known Allergies Allergy Verified 06/15/24 23:11 Home Meds Home Medications Medication Instructions Recorded Confirmed simvastatin 40 mg tablet 40 mg PO QPM 12/23/23 08/03/24 Previous Rx's Medication Instructions Recorded Wheelchair (Manual) #1 ea 06/06/22 diaper,brief,adult,disposable #120 ea 06/06/22 underpads (Bed Underpads) #100 ea 06/06/22 clopidogrel 75 mg tablet 75 mg PO DAILY #90 tabs 06/29/23 tamsulosin 0.4 mg capsule 0.4 mg PO DAILY #90 caps 08/24/23 donepezil 10 mg tablet 10 mg PO DAILY #90 tabs 08/29/23 finasteride 5 mg tablet 5 mg PO DAILY #90 tabs 08/29/23 memantine 10 mg tablet 10 mg PO BID #180 tabs 08/29/23 quetiapine 50 mg tablet 50 mg PO HS #90 tabs 08/29/23 levothyroxine 100 mcg tablet 100 mcg PO DAILY #90 tabs 11/29/23 albuterol sulfate 2.5 mg/3 mL 2.5 mg (3 mL) inhalation Q4H PRN 05/10/24 (0.083 %) solution for nebulization shortness of breath or wheezing #90 mL nebulizers #1 ea 05/10/24 Results & Data (ED) Vital Signs Vital Signs - 24 hr 06/15/24 19:40 06/15/24 19:40 06/15/24 19:56 Temperature 36.9 C Temperature Source Oral Pulse Rate 104 H Pulse Rate [Apical] 93 H Respiratory Rate 18 19 Blood Pressure 138/77 Blood Pressure [Left Arm] Blood Pressure Mean 97 Blood Pressure Mean [Left Arm] Pulse Oximetry 97 98 Oxygen Delivery Method Room Air Room Air Room Air Sepsis Recent Fever Within 48 Hours No Sepsis New/Unexplained Change in Mental Status No Sepsis Action Taken by Nursing No Action Required 06/15/24 20:09 06/15/24 22:00 06/16/24 00:00 Temperature Temperature Source Pulse Rate Pulse Rate [Apical] 91 H 96 H Respiratory Rate 19 17 Blood Pressure Blood Pressure [Left Arm] 130/80 112/88 Blood Pressure Mean Blood Pressure Mean [Left Arm] 96 96 Pulse Oximetry 98 96 96 Oxygen Delivery Method Room Air Room Air Room Air Sepsis Recent Fever Within 48 Hours Sepsis New/Unexplained Change in Mental Status Sepsis Action Taken by Nursing Laboratory Data 06/15/24 19:54 06/15/24 19:54 Lab Results 06/15/24 06/15/24 06/15/24 Range/Units 19:41 19:54 19:54 WBC 8.06 (4.8-10.8) K/ul RBC 4.85 (4.70-6.10) M/uL Hgb 14.6 (14.0-18.0) g/dl Hct 45.3 (42.0-52.0) % MCV 93.4 (80.0-100.0) fL MCH 30.1 (25.0-34.0) pg MCHC 32.2 (32.0-36.0) g/dL RDW Std Deviation 45.6 (36.4-46.3) fL RDW Coeff of Fabiano 13.4 (11.5-14.5) % Plt Count 301 (130-400) K/uL MPV 9.2 L (9.4-12.4) fL Immature Gran % (Auto) 0.2 % Neut % (Auto) 56.8 % Lymph % (Auto) 26.3 % [place] % (Auto) 12.4 % Eos % (Auto) 3.7 % Baso % (Auto) 0.6 % Neut # (Auto) 4.57 (1.40-6.50) K/uL Lymph # (Auto) 2.12 (1.20-3.40) K/uL [place] # (Auto) 1.00 H (0.11-0.59) K/uL Eos # (Auto) 0.30 (0.00-0.50) K/uL Baso # (Auto) 0.05 (0.00-0.20) K/uL Immature Gran # (Auto) 0.02 (0.01-0.20) K/uL PT 10.9 (9.0-12.0) Seconds INR 1.0 (0.9-1.1) Sodium 145 (136-145) mmol/L Potassium 3.8 (3.5-5.1) mmol/L Chloride 112 H (98-107) mmol/L Carbon Dioxide 26 (21-32) mmol/L Anion Gap 7 (3-11) BUN 36 H (6-23) mg/dl Creatinine 1.22 (0.6-1.4) mg/dl Est Cr Clr Drug Dosing 30.0 ml/min Est GFR ( Amer) 64.0 ml/min Est GFR (Non-Af Amer) 55.3 ml/min BUN/Creatinine Ratio 29.5 H (10-20) Glucose 149 H (70-99(Fasting)) mg/dl Lactate 1.9 (0.4-2.0) mmol/L Calcium 9.5 (8.6-10.3) mg/dl Magnesium 2.1 (1.7-2.4) mg/dl Total Bilirubin 0.3 (0.2-1.0) mg/dl AST 19 (13-39) U/L ALT 18 (7-52) U/L Alkaline Phosphatase 108 H (34-104) U/L Total Creatine Kinase 125 (30-223) U/L Troponin I High Sens 17.3 Cancelled (0-20) pg/ml Total Protein 7.2 (6.0-8.3) gm/dl Albumin 3.3 L (3.4-5.0) gm/dl Globulin 3.9 (2.5-4.0) gm/dl Albumin/Globulin Ratio 0.8 L (0.9-2) Procalcitonin 0.19 (0-0.5) ng/ml TSH 1.495 (0.300-4.500) uIu/ml Urine Color Urine Appearance (Clear) Urine pH (4.5-7.5) Ur Specific Wallace (1.000-1.030) Urine Protein (Negative) Urine Glucose (UA) (Negative) Urine Ketones (Negative) Urine Blood (Negative) Urine Nitrite (Negative) Urine Bilirubin (Negative) Urine Urobilinogen (Negative) Ur Leukocyte Esterase (Negative) Urine WBC (Auto) (0-5) /hpf Urine RBC (Auto) (0-2) /hpf U Hyaline Cast (Auto) (0-2) /lpf U Epithel Cells (Auto) (0-2) /hpf Urine Bacteria (Auto) (None Seen) Calcium Oxalate Crystal (None Prsent) Stl C. cayetanensis PCR (NotDetected) Stool Rotavirus A PCR (NotDetected) Stl Adenov F 40/41 PCR (NotDetected) Stool Astrovirus (PCR) (NotDetected) Stool Campylobacter PCR (NotDetected) Stl C. diff Tox B Gene (Neg) Stool Cryptosporidium PCR (NotDetected) Stl E.coli Shiga Tox PCR (NotDetected) Stl Enterotoxigenic E PCR (NotDetected) Stool EPEC (PCR) (NotDetected) Stool EAEC (PCR) (NotDetected) Stl E. histolytica PCR (NotDetected) Stool Giardia Lamblia PCR (NotDetected) Stool Salmonella PCR (NotDetected) Stool Sapovirus (PCR) (NotDetected) Stl P. shigelloides PCR (NotDetected) Stl Shigella/EIEC PCR (NotDetected) St Y.enterocolitica PCR (NotDetected) Stool Vibrio (PCR) (NotDetected) Stl Vibrio cholerae PCR (NotDetected) Stl Norovirus GI/GII PCR (NotDetected) Adenovirus (PCR) Not Detected (NotDetected) B. pertussis DNA (PCR) Not Detected (NotDetected) B.parapertussis DNA PCR Not Detected (NotDetected) C. pneumoniae DNA (PCR) Not Detected (NotDetected) Coronavirus OC43 (PCR) Not Detected (NotDetected) Coronavirus HKU1 (PCR) Not Detected (NotDetected) Coronavirus 229E (PCR) Not Detected (NotDetected) SARS-CoV-2 (PCR) Not Detected (NotDetected) Coronavirus NL63 (PCR) Not Detected (NotDetected) Human Metapneumovir PCR Not Detected (NotDetected) Influenza Type A (PCR) Not Detected (NotDetected) Influenza Type B (PCR) Not Detected (NotDetected) M. pneumoniae (PCR) Not Detected (NotDetected) Parainfluenza 1 (PCR) Not Detected (NotDetected) Parainfluenza 2 (PCR) Not Detected (NotDetected) Parainfluenza 3 (PCR) Not Detected (NotDetected) Parainfluenza 4 (PCR) Not Detected (NotDetected) RSV (PCR) Not Detected (NotDetected) Entero/Rhino (PCR) Not Detected (NotDetected) 06/15/24 Range/Units 19:56 WBC (4.8-10.8) K/ul RBC (4.70-6.10) M/uL Hgb (14.0-18.0) g/dl Hct (42.0-52.0) % MCV (80.0-100.0) fL MCH (25.0-34.0) pg MCHC (32.0-36.0) g/dL RDW Std Deviation (36.4-46.3) fL RDW Coeff of Fabiano (11.5-14.5) % Plt Count (130-400) K/uL MPV (9.4-12.4) fL Immature Gran % (Auto) % Neut % (Auto) % Lymph % (Auto) % [place] % (Auto) % Eos % (Auto) % Baso % (Auto) % Neut # (Auto) (1.40-6.50) K/uL Lymph # (Auto) (1.20-3.40) K/uL [place] # (Auto) (0.11-0.59) K/uL Eos # (Auto) (0.00-0.50) K/uL Baso # (Auto) (0.00-0.20) K/uL Immature Gran # (Auto) (0.01-0.20) K/uL PT (9.0-12.0) Seconds INR (0.9-1.1) Sodium (136-145) mmol/L Potassium (3.5-5.1) mmol/L Chloride (98-107) mmol/L Carbon Dioxide (21-32) mmol/L Anion Gap (3-11) BUN (6-23) mg/dl Creatinine (0.6-1.4) mg/dl Est Cr Clr Drug Dosing ml/min Est GFR ( Amer) ml/min Est GFR (Non-Af Amer) ml/min BUN/Creatinine Ratio (10-20) Glucose (70-99(Fasting)) mg/dl Lactate (0.4-2.0) mmol/L Calcium (8.6-10.3) mg/dl Magnesium (1.7-2.4) mg/dl Total Bilirubin (0.2-1.0) mg/dl AST (13-39) U/L ALT (7-52) U/L Alkaline Phosphatase (34-104) U/L Total Creatine Kinase (30-223) U/L Troponin I High Sens (0-20) pg/ml Total Protein (6.0-8.3) gm/dl Albumin (3.4-5.0) gm/dl Globulin (2.5-4.0) gm/dl Albumin/Globulin Ratio (0.9-2) Procalcitonin (0-0.5) ng/ml TSH (0.300-4.500) uIu/ml Urine Color Dark Yellow Urine Appearance Cloudy A (Clear) Urine pH 5.5 (4.5-7.5) Ur Specific Wallace 1.024 (1.000-1.030) Urine Protein 1+ H (Negative) Urine Glucose (UA) Negative (Negative) Urine Ketones Negative (Negative) Urine Blood 2+ H (Negative) Urine Nitrite Negative (Negative) Urine Bilirubin Negative (Negative) Urine Urobilinogen Negative (Negative) Ur Leukocyte Esterase 1+ H (Negative) Urine WBC (Auto) 11-20 H (0-5) /hpf Urine RBC (Auto) 11-20 H (0-2) /hpf U Hyaline Cast (Auto) 3-5 H (0-2) /lpf U Epithel Cells (Auto) 0-2 (0-2) /hpf Urine Bacteria (Auto) None Seen (None Seen) Calcium Oxalate Crystal Present A (None Prsent) Stl C. cayetanensis PCR Not Detected (NotDetected) Stool Rotavirus A PCR Not Detected (NotDetected) Stl Adenov F 40/41 PCR Not Detected (NotDetected) Stool Astrovirus (PCR) Not Detected (NotDetected) Stool Campylobacter PCR Not Detected (NotDetected) Stl C. diff Tox B Gene Negative Cdiff Gene (Neg) Stool Cryptosporidium PCR Not Detected (NotDetected) Stl E.coli Shiga Tox PCR Not Detected (NotDetected) Stl Enterotoxigenic E PCR Not Detected (NotDetected) Stool EPEC (PCR) Not Detected (NotDetected) Stool EAEC (PCR) Not Detected (NotDetected) Stl E. histolytica PCR Not Detected (NotDetected) Stool Giardia Lamblia PCR Not Detected (NotDetected) Stool Salmonella PCR Not Detected (NotDetected) Stool Sapovirus (PCR) Not Detected (NotDetected) Stl P. shigelloides PCR Not Detected (NotDetected) Stl Shigella/EIEC PCR Not Detected (NotDetected) St Y.enterocolitica PCR Not Detected (NotDetected) Stool Vibrio (PCR) Not Detected (NotDetected) Stl Vibrio cholerae PCR Not Detected (NotDetected) Stl Norovirus GI/GII PCR Not Detected (NotDetected) Adenovirus (PCR) (NotDetected) B. pertussis DNA (PCR) (NotDetected) B.parapertussis DNA PCR (NotDetected) C. pneumoniae DNA (PCR) (NotDetected) Coronavirus OC43 (PCR) (NotDetected) Coronavirus HKU1 (PCR) (NotDetected) Coronavirus 229E (PCR) (NotDetected) SARS-CoV-2 (PCR) (NotDetected) Coronavirus NL63 (PCR) (NotDetected) Human Metapneumovir PCR (NotDetected) Influenza Type A (PCR) (NotDetected) Influenza Type B (PCR) (NotDetected) M. pneumoniae (PCR) (NotDetected) Parainfluenza 1 (PCR) (NotDetected) Parainfluenza 2 (PCR) (NotDetected) Parainfluenza 3 (PCR) (NotDetected) Parainfluenza 4 (PCR) (NotDetected) RSV (PCR) (NotDetected) Entero/Rhino (PCR) (NotDetected) Administered Medications Discontinued Medications Sodium Chloride (Nss) 500 mls @ 999 mls/hr IV .Q31M ONE Stop: 06/15/24 20:11 Last Infusion: 06/15/24 21:17 Dose: Infused Documented By: Admin: 06/15/24 19:50 Dose: 999 mls/hr Documented By: MAXIMILIANO Imaging Data Radiologist's Impression: Abdomen/Pelvis CT 06/15/24 19:40 Exam(s): CT ABDOMEN + PELVIS Without Contrast EXAM: CT Abdomen and Pelvis Without Intravenous Contrast CLINICAL HISTORY: Weakness and diarrhea. TECHNIQUE: Axial computed tomography images of the abdomen and pelvis without intravenous contrast. CTDI is 63 mGy and DLP is 1098 mGy-cm. Automated exposure control was utilized for the study. A dose lowering technique was utilized adhering to the principles of ALARA. COMPARISON: No relevant prior studies available. FINDINGS: Lung bases: Unremarkable. No mass. No consolidation. ABDOMEN: Liver: Unremarkable. Gallbladder and bile ducts: Unremarkable. No calcified stones. No ductal dilation. Pancreas: Unremarkable. No ductal dilation. Spleen: Unremarkable. No splenomegaly. Adrenals: Unremarkable. No mass. Kidneys and ureters: Severe right hydronephrosis. The ureter is decompressed. 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 Nonobstructing bilateral renal calculi measure up to 0.6 cm. No left hydronephrosis. Stomach and bowel: There is marked thickening of the wall of the colon which is a severe of the rectum. Diverticulosis. No obstruction. PELVIS: Appendix: No findings to suggest acute appendicitis. Bladder: Numerous bladder calculi are present with thickening of the wall. Reproductive: Prostate gland enlargement and heterogeneity. ABDOMEN and PELVIS: Intraperitoneal space: Unremarkable. No free air. No significant fluid collection. Bones/joints: Mild age indeterminate L2 compression fracture. There are degenerative changes of the spine. No acute fracture. No dislocation. Soft tissues: Unremarkable. Vasculature: Moderate atherosclerotic disease. No abdominal aortic aneurysm. Lymph nodes: Unremarkable. No enlarged lymph nodes. IMPRESSION: 1. Severe right hydronephrosis. The ureter is decompressed. 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 2. There is marked thickening of the wall of the colon which is a severe of the rectum. This could represent infectious or inflammatory etiologies. Cannot exclude underlying malignancy. 3. Numerous bladder calculi are present with thickening of the wall. Cannot exclude cystitis. 4. Prostate gland enlargement and heterogeneity. 5. Mild age indeterminate L2 compression fracture. 6. Diverticulosis. 7. Nonobstructing bilateral renal calculi measure up to 0.6 cm. Electronically signed by: Shani Cueva MD 06/15/24 23:[address] 06/15/24 19:40 Exam(s): CT CHEST Without Contrast EXAM: CT Chest Without Intravenous Contrast CLINICAL HISTORY: Cough. TECHNIQUE: Axial computed tomography images of the chest without intravenous contrast. CTDI is 63 mGy and DLP is 1098 mGy-cm. Automated exposure control was utilized for the study. A dose lowering technique was utilized adhering to the principles of ALARA. COMPARISON: Chest radiograph 09/21/2022 FINDINGS: Lungs: Mild airspace opacities of the upper lobes could relate to atypical infection, however favors the appearance of interstitial lung disease. Pleural space: Unremarkable. No pneumothorax. No significant effusion. Heart: Coronary artery calcifications are present. No cardiomegaly. No significant pericardial effusion. Bones/joints: Age indeterminant mild T5, T10 and T11 compression fractures. There is a right shoulder arthroplasty. There are degenerative changes of the spine. No acute fracture. No dislocation. Soft tissues: Unremarkable. Vasculature: Moderate atherosclerotic disease. Lymph nodes: Unremarkable. No enlarged lymph nodes. Kidneys and ureters: Incidentally noted severe right hydronephrosis. IMPRESSION: 1. Mild airspace opacities of the upper lobes could relate to atypical infection, however favors the appearance of interstitial lung disease. 2. Incidentally noted severe right hydronephrosis. 3. Age indeterminant mild T5, T10 and T11 compression fractures. Electronically signed by: Shani Cueva MD 06/15/24 23:[address] 06/15/24 19:41 Exam(s): CT HEAD Without Contrast EXAM: CT Head Without Intravenous Contrast CLINICAL HISTORY: Weakness and diarrhea. TECHNIQUE: Axial computed tomography images of the head/brain without intravenous contrast. CTDI is 63 mGy and DLP is 1098 mGy-cm. Automated exposure control was utilized for the study. A dose lowering technique was utilized adhering to the principles of ALARA. COMPARISON: MRI brain 09/22/2022 old brain FINDINGS: Brain: There is encephalomalacia of both frontal lobes. No intracranial hemorrhage, mass-effect or midline shift. Mild periventricular white matter evident these are most consistent with chronic microangiopathy. Ventricles: There is stable prominence of the ventricles. Bones/joints: Unremarkable. No acute fracture. Soft tissues: Unremarkable. Sinuses: Unremarkable as visualized. No acute sinusitis. Mastoid air cells: Unremarkable as visualized. No mastoid effusion. IMPRESSION: There is stable prominence of the ventricles. This could relate to central atrophy or normal pressure hydrocephalus although unchanged since the previous examination. Otherwise, no acute finding. Electronically signed by: Shani Cueva MD 06/15/24 23:33 PM Discharge Plan Visit Data Chief Complaint: Dehydration Stated Complaint: Dehydration, SOB, Hypotension ED Provider: Keanu Hammonds Discharge Problem: Diarrhea, Senile dementia, Weakness, A-fib Patient Disposition: Being Evaluated by Hospitalist Forms Stand Alone Forms: My [facility] Prescriptions Prescriptions: No Action clopidogrel 75 mg tablet 75 mg PO DAILY Qty: 90 3RF tamsulosin 0.4 mg capsule 0.4 mg PO DAILY Qty: 90 3RF levothyroxine 100 mcg tablet 100 mcg PO DAILY Qty: 90 3RF (DME) Wheelchair (Manual) Device See Rx Instructions .Route Qty: 1 0RF Rx Instructions: As directed (DME) diaper,brief,adult,disposable Misc See Rx Instructions .Route Qty: 120 11RF Rx Instructions: Diaper type. SIZE MEDIUM/LARGE (DME) underpads [Bed Underpads] Pad See Rx Instructions .Route Qty: 100 11RF Rx Instructions: Change as needed finasteride 5 mg tablet 5 mg PO DAILY Qty: 90 3RF memantine 10 mg tablet 10 mg PO BID Qty: 180 3RF donepezil 10 mg tablet 10 mg PO DAILY Qty: 90 3RF quetiapine 50 mg tablet 50 mg PO HS Qty: 90 3RF (DME) nebulizers Misc See Rx Instructions .Route Qty: 1 0RF Rx Instructions: As directed albuterol sulfate 2.5 mg /3 mL (0.083 %) solution for nebulization 2.5 mg inhalation Q4H PRN (Reason: shortness of breath or wheezing) Qty: 90 5RF simvastatin 40 mg tablet 40 mg PO QPM Rx Instructions: daily in the evening; Referrals Referrals: PCP,NO [Physician] - Discharge Problem: Diarrhea Qualifiers: Diarrhea type: presumed infectious Qualified Code(s): R19.7 - Diarrhea, unspecified
[2024-06-15] MEDS: SODIUM CHLORIDE 0.9% 500 ML IV ONE (19:50)
[2024-06-15 20:11] LABS: Basophils # (auto) 0.05 K/uL (0.00-0.20); Basophils % (auto) 0.6 %; Eosinophils % (auto) 3.7 %; Hematocrit (blood only) 45.3 % (42.0-52.0); Hemoglobin 14.6 g/dl (14.0-18.0); Immature Granulocytes # (auto) 0.02 K/uL (0.01-0.20); Immature Granulocytes % (auto) 0.2 %; Lymphocytes # (auto) 2.12 K/uL (1.20-3.40); Lymphocytes % (auto) 26.3 %; Mean Corpuscular Hemoglobin 30.1 pg (25.0-34.0); Mean Corpuscular Hgb Conc 32.2 g/dL (32.0-36.0); Mean Corpuscular Volume 93.4 fL (80.0-100.0); Mean Platelet Volume 9.2 fL (9.4-12.4); Monocytes % (auto) 12.4 %; Neutrophils # (auto) 4.57 K/uL (1.40-6.50); Neutrophils % (auto) 56.8 %; Platelet Count 301 K/uL (130-400); RDW Coefficient of Variation 13.4 % (11.5-14.5); RDW Standard Deviation 45.6 fL (36.4-46.3); Red Blood Count 4.85 M/uL (4.70-6.10); White Blood Count 8.06 K/ul (4.8-10.8)
[2024-06-15 20:28] LABS: Albumin Globulin Ratio 0.8 (0.9-2); Albumin Level 3.3 gm/dl (3.4-5.0); BUN Creatinine Ratio 29.5 (10-20); Bilirubin,Total 0.3 mg/dl (0.2-1.0); Calcium 9.5 mg/dl (8.6-10.3); Est GFR (Non-African American) 55.3 ml/min; Globulin 3.9 gm/dl (2.5-4.0); Magnesium 2.1 mg/dl (1.7-2.4); Potassium 3.8 mmol/L (3.5-5.1); Total Protein 7.2 gm/dl (6.0-8.3)
[2024-06-15 20:32] LABS: Appearance Urine Cloudy (Clear); Bacteria Urine Automated None Seen (None Seen); Bilirubin Urine Negative (Negative); Blood Urine 2+ (Negative); Calcium Oxalate Crystals Urine Present (None Prsent); Color Urine Dark Yellow; Epithelial Cell Urine Auto 0-2 /hpf (0-2); Glucose Urine UA Negative (Negative); Ketones Urine Negative (Negative); Leukocyte Esterase Urine 1+ (Negative); Nitrite Urine Negative (Negative); Protein Urine 1+ (Negative); Specific Gravity Urine 1.024 (1.000-1.030); Urobilinogen Urine Negative (Negative); pH Urine 5.5 (4.5-7.5)
[2024-06-15 20:35] LABS: Troponin I High Sensitivity 17.3 pg/ml (0-20)
[2024-06-15 20:36] LABS: Prothrombin Time 10.9 Seconds (9.0-12.0)
[2024-06-15 20:45] LABS: Thyroid Stimulating Hormone 1.495 uIu/ml (0.300-4.500)
[2024-06-15 21:06] LABS: Adenovirus PCR Not Detected (NotDetected); Bordetella parapertussis PCR Not Detected (NotDetected); Bordetella pertussis PCR Not Detected (NotDetected); Chlamydia pneumoniae PCR Not Detected (NotDetected); Coronavirus 229E PCR Not Detected (NotDetected); Coronavirus CoV-2 (COVID19)PCR Not Detected (NotDetected); Coronavirus HKU1 PCR Not Detected (NotDetected); Coronavirus NL63 PCR Not Detected (NotDetected); Coronavirus OC43PCR Not Detected (NotDetected); Human Metapneumovirus PCR Not Detected (NotDetected); Influenza A PCR Not Detected (NotDetected); Influenza B PCR Not Detected (NotDetected); Mycoplasma pneumoniae PCR Not Detected (NotDetected); Parainfluenza Virus 1 PCR Not Detected (NotDetected); Parainfluenza Virus 2 PCR Not Detected (NotDetected); Parainfluenza Virus 3 PCR Not Detected (NotDetected); Parainfluenza Virus 4 PCR Not Detected (NotDetected); Respiratory Syncytial VirusPCR Not Detected (NotDetected); Rhinovirus/Enterovirus PCR Not Detected (NotDetected)
[2024-06-15 21:36] LABS: Adenovirus F 40/41 PCR Not Detected (NotDetected); Astrovirus PCR Not Detected (NotDetected); Campylobacter PCR Not Detected (NotDetected); Cryptosporidium PCR Not Detected (NotDetected); Cyclospora cayetanensis PCR Not Detected (NotDetected); Entamoeba histolytica PCR Not Detected (NotDetected); Enteroaggregative E.coli(EAEC) Not Detected (NotDetected); Enteropathogenic E.coli (EPEC) Not Detected (NotDetected); Enterotoxigenic E.coli (ETEC) Not Detected (NotDetected); Giardia lamblia PCR Not Detected (NotDetected); Norovirus GI/GII PCR Not Detected (NotDetected); Plesiomonas shigelloides PCR Not Detected (NotDetected); Rotavirus A PCR Not Detected (NotDetected); Salmonella PCR Not Detected (NotDetected); Sapovirus PCR Not Detected (NotDetected); Shiga-like Toxin E.coli (STEC) Not Detected (NotDetected); Shigella/Enteroinvasive E.coli Not Detected (NotDetected); Vibrio cholerae PCR Not Detected (NotDetected); Vibrio species PCR Not Detected (NotDetected); Yersinia enterocolitica PCR Not Detected (NotDetected)
--- NOTE | 2024-06-15 23:34 | CT Scan Report ---
Exam(s): CT HEAD Without Contrast EXAM: CT Head Without Intravenous Contrast CLINICAL HISTORY: Weakness and diarrhea. TECHNIQUE: Axial computed tomography images of the head/brain without intravenous contrast. CTDI is 63 mGy and DLP is 1098 mGy-cm. Automated exposure control was utilized for the study. A dose lowering technique was utilized adhering to the principles of ALARA. COMPARISON: MRI brain 09/22/2022 old brain FINDINGS: Brain: There is encephalomalacia of both frontal lobes. No intracranial hemorrhage, mass-effect or midline shift. Mild periventricular white matter evident these are most consistent with chronic microangiopathy. Ventricles: There is stable prominence of the ventricles. Bones/joints: Unremarkable. No acute fracture. Soft tissues: Unremarkable. Sinuses: Unremarkable as visualized. No acute sinusitis. Mastoid air cells: Unremarkable as visualized. No mastoid effusion. IMPRESSION: There is stable prominence of the ventricles. This could relate to central atrophy or normal pressure hydrocephalus although unchanged since the previous examination. Otherwise, no acute finding. Electronically signed by: Shani Cueva MD 06/15/24 23:33 PM
--- NOTE | 2024-06-15 23:36 | CT Scan Report ---
Exam(s): CT CHEST Without Contrast EXAM: CT Chest Without Intravenous Contrast CLINICAL HISTORY: Cough. TECHNIQUE: Axial computed tomography images of the chest without intravenous contrast. CTDI is 63 mGy and DLP is 1098 mGy-cm. Automated exposure control was utilized for the study. A dose lowering technique was utilized adhering to the principles of ALARA. COMPARISON: Chest radiograph 09/21/2022 FINDINGS: Lungs: Mild airspace opacities of the upper lobes could relate to atypical infection, however favors the appearance of interstitial lung disease. Pleural space: Unremarkable. No pneumothorax. No significant effusion. Heart: Coronary artery calcifications are present. No cardiomegaly. No significant pericardial effusion. Bones/joints: Age indeterminant mild T5, T10 and T11 compression fractures. There is a right shoulder arthroplasty. There are degenerative changes of the spine. No acute fracture. No dislocation. Soft tissues: Unremarkable. Vasculature: Moderate atherosclerotic disease. Lymph nodes: Unremarkable. No enlarged lymph nodes. Kidneys and ureters: Incidentally noted severe right hydronephrosis. IMPRESSION: 1. Mild airspace opacities of the upper lobes could relate to atypical infection, however favors the appearance of interstitial lung disease. 2. Incidentally noted severe right hydronephrosis. 3. Age indeterminant mild T5, T10 and T11 compression fractures. Electronically signed by: Shani Cueva MD 06/15/24 23:35 PM
--- NOTE | 2024-06-15 23:42 | CT Scan Report ---
Exam(s): CT ABDOMEN + PELVIS Without Contrast EXAM: CT Abdomen and Pelvis Without Intravenous Contrast CLINICAL HISTORY: Weakness and diarrhea. TECHNIQUE: Axial computed tomography images of the abdomen and pelvis without intravenous contrast. CTDI is 63 mGy and DLP is 1098 mGy-cm. Automated exposure control was utilized for the study. A dose lowering technique was utilized adhering to the principles of ALARA. COMPARISON: No relevant prior studies available. FINDINGS: Lung bases: Unremarkable. No mass. No consolidation. ABDOMEN: Liver: Unremarkable. Gallbladder and bile ducts: Unremarkable. No calcified stones. No ductal dilation. Pancreas: Unremarkable. No ductal dilation. Spleen: Unremarkable. No splenomegaly. Adrenals: Unremarkable. No mass. Kidneys and ureters: Severe right hydronephrosis. The ureter is decompressed. 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 Nonobstructing bilateral renal calculi measure up to 0.6 cm. No left hydronephrosis. Stomach and bowel: There is marked thickening of the wall of the colon which is a severe of the rectum. Diverticulosis. No obstruction. PELVIS: Appendix: No findings to suggest acute appendicitis. Bladder: Numerous bladder calculi are present with thickening of the wall. Reproductive: Prostate gland enlargement and heterogeneity. ABDOMEN and PELVIS: Intraperitoneal space: Unremarkable. No free air. No significant fluid collection. Bones/joints: Mild age indeterminate L2 compression fracture. There are degenerative changes of the spine. No acute fracture. No dislocation. Soft tissues: Unremarkable. Vasculature: Moderate atherosclerotic disease. No abdominal aortic aneurysm. Lymph nodes: Unremarkable. No enlarged lymph nodes. IMPRESSION: 1. Severe right hydronephrosis. The ureter is decompressed. 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 2. There is marked thickening of the wall of the colon which is a severe of the rectum. This could represent infectious or inflammatory etiologies. Cannot exclude underlying malignancy. 3. Numerous bladder calculi are present with thickening of the wall. Cannot exclude cystitis. 4. Prostate gland enlargement and heterogeneity. 5. Mild age indeterminate L2 compression fracture. 6. Diverticulosis. 7. Nonobstructing bilateral renal calculi measure up to 0.6 cm. Electronically signed by: Shani Cueva MD 06/15/24 23:41 PM
[2024-06-16] MEDS: LACTATED RINGER'S 1,000 ML IV SCH ×2 (00:54→03:44)
--- NOTE | 2024-06-16 01:11 | History & Physical Report ---
Date of Service June 16, 2024 Assessment & Plan (1) Diarrhea: Plan: Patient with ongoing diarrhea for the last 5-6 days. Etiology unclear. Infectious workup is unremarkable. CT findings as above -Imodium PRN -IVF and electrolyte repletion as needed -Careful attention to skin - patient with some sacral redness at present. Turn and position q 2 hours Wound care/barrier cream (2) Weakness: Plan: In setting of ongoing diarrhea, dehydration and new onset atrial fibrillation Patient is bedbound at baseline -Continue IVF, electrolyte repletion as needed (3) A-fib: Plan: Patient with new atrial fibrillation on monitor. In setting of dehydration. Electrolytes and TSH are within normal limits. HR presently 106 -Continue to monitor HR with ongoing hydration -Will hold off on rate controlling agents for now -Electrolyte repletion as needed -Will hold off on anticoagulation for now. Patient reportedly with blood in st ool until today Plan Chronic Medical Problems: Dementia - -Continue Aricept and Namenda -Frequent orientation BPH - -Continue Flomax and Finasteride -Bladder scan and straight cath as needed F/E/N - LR at 100mL/hr, electrolytes WNL, regular diet as tolerated minced/moist with aspiration precautions Code - DNR Dispo - Admit to medical History of Present Illness Chief Complaint: diarrhea Primary Care Provider: DO Wally Longoriavin is an 83yo male with history of dementia and BPH presenting from home with ongoing diarrhea for the last 5-6 days. Patient has had multiple episodes of diarrhea daily. Family reports that stools have contained blood up until today. He has had some abdominal pain as well as pain in his buttock and skin. Decreased appetite and poor oral intake over the last several days. No report of fever, chills, vomiting No sick contacts or family members with similar symptoms No dietary changes or changes in medications. Family has tried to limit dairy intake as well as fruit an applesauce for possible worsening of diarrhea. Family is on well water - uses a water softener filtration which is up to date In the ER patient is afebrile. New atrial fibrillation noted on monitor ER Course: NSS 500mL LR at 60mL/hr Allergies Allergy/AdvReac Type Severity Reaction Status Date / Time No Known Allergies Allergy Verified 06/15/24 23:11 Home Medications Medication Instructions Recorded Confirmed Type Wheelchair (Manual) #1 ea 06/06/22 06/15/24 Rx diaper,brief,adult,disposable #120 ea 06/06/22 06/15/24 Rx underpads (Bed Underpads) #100 ea 06/06/22 06/15/24 Rx clopidogrel 75 mg tablet 75 mg PO DAILY #90 tabs 06/29/23 06/15/24 Rx tamsulosin 0.4 mg capsule 0.4 mg PO DAILY #90 caps 08/24/23 06/15/24 Rx donepezil 10 mg tablet 10 mg PO DAILY #90 tabs 08/29/23 06/15/24 Rx finasteride 5 mg tablet 5 mg PO DAILY #90 tabs 08/29/23 06/15/24 Rx memantine 10 mg tablet 10 mg PO BID #180 tabs 08/29/23 06/15/24 Rx quetiapine 50 mg tablet 50 mg PO HS #90 tabs 08/29/23 06/15/24 Rx simvastatin 40 mg tablet 40 mg PO QPM 11/04/23 06/15/24 History levothyroxine 100 mcg tablet 100 mcg PO DAILY #90 tabs 11/29/23 06/15/24 Rx albuterol sulfate 2.5 mg/3 mL 2.5 mg (3 mL) inhalation Q4H PRN 05/10/24 06/15/24 Rx (0.083 %) solution for nebulization shortness of breath or wheezing #90 mL nebulizers #1 ea 05/10/24 06/15/24 Rx Past Med/Surg History Problem List A-fib (Acute) Weakness (Acute) Diarrhea (Acute) Acute bronchospasm Wheeze Cough Blister (nonthermal), left foot, initial encounter Cellulitis of left foot Lack of access to transportation Bedbound Conjunctivitis Benign prostatic hyperplasia Cervical osteoarthritis Dyslipidemia Gait disturbance Senile dementia (Acute) Hypothyroidism History of CVA (cerebrovascular accident) Weakness (Acute) Combative behavior (Acute) Leukocytosis Constipation Medical History Elevated troponin Pneumonia COVID-19 Benign prostatic hyperplasia with lower urinary tract symptoms Diverticulosis of colon Gait disturbance, post-stroke Impaired fasting glucose Osteoporosis Periodic limb movement disorder Stenosis, cervical spine Stroke, hemorrhagic Tremor Medicare annual wellness visit, subsequent Encounter for health maintenance examination in adult Stroke, hemorrhagic Cervical radiculopathy Cerebral vascular accident Borderline hypertension Hx of chalazion Hx of dermatitis History of cellulitis Surgical History History of colonoscopy (12/02/15) Dr. Lee, sigmoid diverticulosis, no polyps. Due to age, no repeat necessary for screening. Family History Father Myocardial infarction Denies family history of Ovarian cancer Prostate cancer Breast cancer Colorectal cancer Social History Smoking Status: Former smoker Tobacco Type: Cigarettes Second Hand Exposure: No; Do You Dip or Chew Tobacco: No; Hx Alcohol Use: No Hx Substance Use: No Preferred Language: Spanish Communication Ability: Impaired Visual Impairment: No Limitations Hearing Ability: Use of Hearing Aid [employer] Account Executive Required: No Beliefs That Will Affect Care: None marital status: Current Living Situation: Spouse current occupational status: retired Feels Safe at Home: Yes Dental Care, Regularly: Yes Physical Activity Frequency: Does not Exercise Seatbelt Use: always Sunscreen Use: No Assistive Devices: Walker Review of Systems Review of Systems: All systems reviewed & are unremarkable except as noted in HPI & below Physical Exam Physical Exam: General: chronically ill appearing elderly male, does not follow commands or answer questions Skin: sacral stage I HEENT: dry mucus membranes Heart: +S1/S2, irregularly irregular, no m/r/g Lungs: equal air entry bilaterally, no rales/rhonchi/wheezes Abd: +BS, soft, ND, no masses/organomegaly/ascites Ext: warm, 2+ pulses in UE/LE bilaterally, no clubbing/cyanosis or edema Neuro: patient laying with legs drawn up, moves extremities with equal strength Results & Data Results & Data Vital Signs (Past 12 Hours) Vital Signs Temp Pulse Pulse Resp BP BP Pulse Ox 06/16/24 00:00 96 H 17 112/88 96 06/15/24 22:00 91 H 19 130/80 96 06/15/24 20:09 98 06/15/24 19:56 93 H 19 98 06/15/24 19:40 06/15/24 19:40 36.9 C 104 H 18 138/77 97 O2 Del Method 06/16/24 00:00 Room Air 06/15/24 22:00 Room Air 06/15/24 20:09 Room Air 06/15/24 19:56 Room Air 06/15/24 19:40 Room Air 06/15/24 19:40 Room Air Laboratory Results Laboratory Results WBC 8.06 K/ul (4.8-10.8) 06/15/24 19:54 RBC 4.85 M/uL (4.70-6.10) 06/15/24 19:54 Hgb 14.6 g/dl (14.0-18.0) 06/15/24 19:54 Hct 45.3 % (42.0-52.0) 06/15/24 19:54 MCV 93.4 fL (80.0-100.0) 06/15/24 19:54 MCH 30.1 pg (25.0-34.0) 06/15/24 19:54 MCHC 32.2 g/dL (32.0-36.0) 06/15/24 19:54 RDW Std Deviation 45.6 fL (36.4-46.3) 06/15/24 19:54 RDW Coeff of Fabiano 13.4 % (11.5-14.5) 06/15/24 19:54 Plt Count 301 K/uL (130-400) 06/15/24 19:54 MPV 9.2 fL (9.4-12.4) L 06/15/24 19:54 Immature Gran % (Auto) 0.2 % 06/15/24 19:54 Neut % (Auto) 56.8 % 06/15/24 19:54 Lymph % (Auto) 26.3 % 06/15/24 19:54 Alfalfa % (Auto) 12.4 % 06/15/24 19:54 Eos % (Auto) 3.7 % 06/15/24 19:54 Baso % (Auto) 0.6 % 06/15/24 19:54 Neut # (Auto) 4.57 K/uL (1.40-6.50) 06/15/24 19:54 Lymph # (Auto) 2.12 K/uL (1.20-3.40) 06/15/24 19:54 Alfalfa # (Auto) 1.00 K/uL (0.11-0.59) H 06/15/24 19:54 Eos # (Auto) 0.30 K/uL (0.00-0.50) 06/15/24 19:54 Baso # (Auto) 0.05 K/uL (0.00-0.20) 06/15/24 19:54 Immature Gran # (Auto) 0.02 K/uL (0.01-0.20) 06/15/24 19:54 PT 10.9 Seconds (9.0-12.0) 06/15/24 19:54 INR 1.0 (0.9-1.1) 06/15/24 19:54 Sodium 145 mmol/L (136-145) 06/15/24 19:54 Potassium 3.8 mmol/L (3.5-5.1) 06/15/24 19:54 Chloride 112 mmol/L (98-107) H 06/15/24 19:54 Carbon Dioxide 26 mmol/L (21-32) 06/15/24 19:54 Anion Gap 7 (3-11) 06/15/24 19:54 BUN 36 mg/dl (6-23) H 06/15/24 19:54 Creatinine 1.22 mg/dl (0.6-1.4) 06/15/24 19:54 Est Cr Clr Drug Dosing 30.0 ml/min 06/15/24 19:54 Est GFR ( Amer) 64.0 ml/min 06/15/24 19:54 Est GFR (Non-Af Amer) 55.3 ml/min 06/15/24 19:54 BUN/Creatinine Ratio 29.5 (10-20) H 06/15/24 19:54 Glucose 149 mg/dl (70-99(Fasting)) H 06/15/24 19:54 Lactate 1.9 mmol/L (0.4-2.0) 06/15/24 19:41 Calcium 9.5 mg/dl (8.6-10.3) 06/15/24 19:54 Magnesium 2.1 mg/dl (1.7-2.4) 06/15/24 19:54 Total Bilirubin 0.3 mg/dl (0.2-1.0) 06/15/24 19:54 AST 19 U/L (13-39) 06/15/24 19:54 ALT 18 U/L (7-52) 06/15/24 19:54 Alkaline Phosphatase 108 U/L (34-104) H 06/15/24 19:54 Total Creatine Kinase 125 U/L (30-223) 06/15/24 19:54 Troponin I High Sens 17.3 pg/ml (0-20) 06/15/24 19:54 Troponin I High Sens Cancelled 06/15/24 19:54 Total Protein 7.2 gm/dl (6.0-8.3) 06/15/24 19:54 Albumin 3.3 gm/dl (3.4-5.0) L 06/15/24 19:54 Globulin 3.9 gm/dl (2.5-4.0) 06/15/24 19:54 Albumin/Globulin Ratio 0.8 (0.9-2) L 06/15/24 19:54 Procalcitonin 0.19 ng/ml (0-0.5) 06/15/24 19:54 TSH 1.495 uIu/ml (0.300-4.500) 06/15/24 19:54 Urine Color Dark Yellow 06/15/24 19:56 Urine Appearance Cloudy (Clear) A 06/15/24 19:56 Urine pH 5.5 (4.5-7.5) 06/15/24 19:56 Ur Specific [place] 1.024 (1.000-1.030) 06/15/24 19:56 Urine Protein 1+ (Negative) H 06/15/24 19:56 Urine Glucose (UA) Negative (Negative) 06/15/24 19:56 Urine Ketones Negative (Negative) 06/15/24 19:56 Urine Blood 2+ (Negative) H 06/15/24 19:56 Urine Nitrite Negative (Negative) 06/15/24 19:56 Urine Bilirubin Negative (Negative) 06/15/24 19:56 Urine Urobilinogen Negative (Negative) 06/15/24 19:56 Ur Leukocyte Esterase 1+ (Negative) H 06/15/24 19:56 Urine WBC (Auto) 11-20 /hpf (0-5) H 06/15/24 19:56 Urine RBC (Auto) 11-20 /hpf (0-2) H 08/03/24 19:56 U Hyaline Cast (Auto) 3-5 /lpf (0-2) H 06/15/24 19:56 U Epithel Cells (Auto) 0-2 /hpf (0-2) 06/15/24 19:56 Urine Bacteria (Auto) None Seen (None Seen) 06/15/24 19:56 Calcium Oxalate Crystal Present (None Prsent) A 06/15/24 19:56 Stl C. cayetanensis PCR Not Detected (NotDetected) 06/15/24 19:56 Stool Rotavirus A PCR Not Detected (NotDetected) 06/15/24 19:56 Stl Adenov F 40/41 PCR Not Detected (NotDetected) 06/15/24 19:56 Stool Astrovirus (PCR) Not Detected (NotDetected) 06/15/24 19:56 Stool Campylobacter PCR Not Detected (NotDetected) 06/15/24 19:56 Stl C. diff Tox B Gene Negative Cdiff Gene (Neg) 06/15/24 19:56 Stool Cryptosporidium PCR Not Detected (NotDetected) 06/15/24 19:56 Stl E.coli Shiga Tox PCR Not Detected (NotDetected) 06/15/24 19:56 Stl Enterotoxigenic E PCR Not Detected (NotDetected) 06/15/24 19:56 Stool EPEC (PCR) Not Detected (NotDetected) 06/15/24 19:56 Stool EAEC (PCR) Not Detected (NotDetected) 06/15/24 19:56 Stl E. histolytica PCR Not Detected (NotDetected) 06/15/24 19:56 Stool Giardia Lamblia PCR Not Detected (NotDetected) 06/15/24 19:56 Stool Salmonella PCR Not Detected (NotDetected) 06/15/24 19:56 Stool Sapovirus (PCR) Not Detected (NotDetected) 06/15/24 19:56 Stl P. shigelloides PCR Not Detected (NotDetected) 06/15/24 19:56 Stl Shigella/EIEC PCR Not Detected (NotDetected) 06/15/24 19:56 St Y.enterocolitica PCR Not Detected (NotDetected) 06/15/24 19:56 Stool Vibrio (PCR) Not Detected (NotDetected) 06/15/24 19:56 Stl Vibrio cholerae PCR Not Detected (NotDetected) 06/15/24 19:56 Stl Norovirus GI/GII PCR Not Detected (NotDetected) 06/15/24 19:56 Adenovirus (PCR) Not Detected (NotDetected) 06/15/24 19:54 B. pertussis DNA (PCR) Not Detected (NotDetected) 06/15/24 19:54 B.parapertussis DNA PCR Not Detected (NotDetected) 06/15/24 19:54 C. pneumoniae DNA (PCR) Not Detected (NotDetected) 06/15/24 19:54 Coronavirus OC43 (PCR) Not Detected (NotDetected) 06/15/24 19:54 Coronavirus HKU1 (PCR) Not Detected (NotDetected) 06/15/24 19:54 Coronavirus 229E (PCR) Not Detected (NotDetected) 06/15/24 19:54 SARS-CoV-2 (PCR) Not Detected (NotDetected) 06/15/24 19:54 Coronavirus NL63 (PCR) Not Detected (NotDetected) 06/15/24 19:54 Human Metapneumovir PCR Not Detected (NotDetected) 06/15/24 19:54 Influenza Type A (PCR) Not Detected (NotDetected) 06/15/24 19:54 Influenza Type B (PCR) Not Detected (NotDetected) 06/15/24 19:54 M. pneumoniae (PCR) Not Detected (NotDetected) 06/15/24 19:54 Parainfluenza 1 (PCR) Not Detected (NotDetected) 06/15/24 19:54 Parainfluenza 2 (PCR) Not Detected (NotDetected) 06/15/24 19:54 Parainfluenza 3 (PCR) Not Detected (NotDetected) 06/15/24 19:54 Parainfluenza 4 (PCR) Not Detected (NotDetected) 06/15/24 19:54 RSV (PCR) Not Detected (NotDetected) 06/15/24 19:54 Entero/Rhino (PCR) Not Detected (NotDetected) 06/15/24 19:54 Impressions Abdomen/Pelvis CT 06/15/24 19:40 Exam(s): CT ABDOMEN + PELVIS Without Contrast EXAM: CT Abdomen and Pelvis Without Intravenous Contrast CLINICAL HISTORY: Weakness and diarrhea. TECHNIQUE: Axial computed tomography images of the abdomen and pelvis without intravenous contrast. CTDI is 63 mGy and DLP is 1098 mGy-cm. Automated exposure control was utilized for the study. A dose lowering technique was utilized adhering to the principles of ALARA. COMPARISON: No relevant prior studies available. FINDINGS: Lung bases: Unremarkable. No mass. No consolidation. ABDOMEN: Liver: Unremarkable. Gallbladder and bile ducts: Unremarkable. No calcified stones. No ductal dilation. Pancreas: Unremarkable. No ductal dilation. Spleen: Unremarkable. No splenomegaly. Adrenals: Unremarkable. No mass. Kidneys and ureters: Severe right hydronephrosis. The ureter is decompressed. 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 Nonobstructing bilateral renal calculi measure up to 0.6 cm. No left hydronephrosis. Stomach and bowel: There is marked thickening of the wall of the colon which is a severe of the rectum. Diverticulosis. No obstruction. PELVIS: Appendix: No findings to suggest acute appendicitis. Bladder: Numerous bladder calculi are present with thickening of the wall. Reproductive: Prostate gland enlargement and heterogeneity. ABDOMEN and PELVIS: Intraperitoneal space: Unremarkable. No free air. No significant fluid collection. Bones/joints: Mild age indeterminate L2 compression fracture. There are degenerative changes of the spine. No acute fracture. No dislocation. Soft tissues: Unremarkable. Vasculature: Moderate atherosclerotic disease. No abdominal aortic aneurysm. Lymph nodes: Unremarkable. No enlarged lymph nodes. IMPRESSION: 1. Severe right hydronephrosis. The ureter is decompressed. 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 2. There is marked thickening of the wall of the colon which is a severe of the rectum. This could represent infectious or inflammatory etiologies. Cannot exclude underlying malignancy. 3. Numerous bladder calculi are present with thickening of the wall. Cannot exclude cystitis. 4. Prostate gland enlargement and heterogeneity. 5. Mild age indeterminate L2 compression fracture. 6. Diverticulosis. 7. Nonobstructing bilateral renal calculi measure up to 0.6 cm. Electronically signed by: Shani Cueva MD 06/15/24 23:[address] 06/15/24 19:40 Exam(s): CT CHEST Without Contrast EXAM: CT Chest Without Intravenous Contrast CLINICAL HISTORY: Cough. TECHNIQUE: Axial computed tomography images of the chest without intravenous contrast. CTDI is 63 mGy and DLP is 1098 mGy-cm. Automated exposure control was utilized for the study. A dose lowering technique was utilized adhering to the principles of ALARA. COMPARISON: Chest radiograph 09/21/2022 FINDINGS: Lungs: Mild airspace opacities of the upper lobes could relate to atypical infection, however favors the appearance of interstitial lung disease. Pleural space: Unremarkable. No pneumothorax. No significant effusion. Heart: Coronary artery calcifications are present. No cardiomegaly. No significant pericardial effusion. Bones/joints: Age indeterminant mild T5, T10 and T11 compression fractures. There is a right shoulder arthroplasty. There are degenerative changes of the spine. No acute fracture. No dislocation. Soft tissues: Unremarkable. Vasculature: Moderate atherosclerotic disease. Lymph nodes: Unremarkable. No enlarged lymph nodes. Kidneys and ureters: Incidentally noted severe right hydronephrosis. IMPRESSION: 1. Mild airspace opacities of the upper lobes could relate to atypical infection, however favors the appearance of interstitial lung disease. 2. Incidentally noted severe right hydronephrosis. 3. Age indeterminant mild T5, T10 and T11 compression fractures. Electronically signed by: Shani Cueva MD 06/15/24 23:[address] 06/15/24 19:41 Exam(s): CT HEAD Without Contrast EXAM: CT Head Without Intravenous Contrast CLINICAL HISTORY: Weakness and diarrhea. TECHNIQUE: Axial computed tomography images of the head/brain without intravenous contrast. CTDI is 63 mGy and DLP is 1098 mGy-cm. Automated exposure control was utilized for the study. A dose lowering technique was utilized adhering to the principles of ALARA. COMPARISON: MRI brain 09/22/2022 old brain FINDINGS: Brain: There is encephalomalacia of both frontal lobes. No intracranial hemorrhage, mass-effect or midline shift. Mild periventricular white matter evident these are most consistent with chronic microangiopathy. Ventricles: There is stable prominence of the ventricles. Bones/joints: Unremarkable. No acute fracture. Soft tissues: Unremarkable. Sinuses: Unremarkable as visualized. No acute sinusitis. Mastoid air cells: Unremarkable as visualized. No mastoid effusion. IMPRESSION: There is stable prominence of the ventricles. This could relate to central atrophy or normal pressure hydrocephalus although unchanged since the previous examination. Otherwise, no acute finding. Electronically signed by: Shani Cueva MD 06/15/24 23:33 PM ECG Additional Comments: Poor quality EKG, suspect atrial fibrillation, no acute ischemic changes PG Care Time/CCT Total # of Minutes Spent Total Time Spent with Patient: Total time spent is greater than 50% in coordination of care (as documented) at patient's floor/unit and/or counseling patient: Coding Level of Care Code 07754 INT INP/OBS CARE 2/55MIN Diagnoses Diarrhea R19.7 Diarrhea type: presumed infectious Weakness R53.1 A-fib I48.91 (1) Diarrhea Diarrhea type: presumed infectious Qualified Code(s): R19.7 - Diarrhea, unspecified
[2024-06-16] MEDS ORDERED: ONDANSETRON INJ 2 MG/ML 2 ML VIAL IV PRN (03:13)
[2024-06-16] MEDS ORDERED: ALBUTEROL 0.083% NEBU SOLN 3 ML VIAL INH PRN (03:13)
[2024-06-16] MEDS: LOPERAMIDE HCL 2 MG CAP PO STA (04:12)
[2024-06-16] MEDS: LEVOTHYROXINE SODIUM 100 MCG TABLET PO SCH (06:12)
--- NOTE | 2024-06-16 06:57 | Electrocardiogram Report ---
Test Reason : Blood Pressure : / mmHG Vent. Rate : 091 BPM Atrial Rate : 000 BPM P-R Int : 000 ms QRS Dur : 076 ms QT Int : 328 ms P-R-T Axes : 000 -06 218 degrees QTc Int : 403 ms Poor data quality, interpretation may be adversely affected Atrial fibrillation Nonspecific ST abnormality Abnormal ECG Confirmed by Leonid Cardenas ([id number]) on 06/16/2024 6:57:13 AM Referred By: REFERRED SELF Confirmed By:Hector Cardenas
--- NOTE | 2024-06-16 08:14 | Hospitalist Progress Note ---
Date of Service June 16, 2024 Assessment & Plan (1) Fever: Plan: BRIDGE NOTE NO BILLING Patient admitted overnight/tube builder airplane for 5 to 6 days of diarrhea. Lactate normal. BP normal. Afebrile on admission. Not septic at time at time of admission. Fever UA infected appearing, patient febrile DDx for fever includes GI illness, bio fire is negative otherwise colonic wall thickening? Infectious versus malignancy; respiratory as patient has had a chronic cough not improved on Doxy/prednisone and? ILD versus atypical pneumonia, and urinary with infected appearing UA, suspected UPJ stricture, and multiple bladder calculi with associated wall thickness from which cystitis is not excluded No known allergies. Initially to cover for UTI, and include expanded coverage for potential atypical pneumonia given persistent symptoms. Rocephin/azithromycin ordered. No known resistant infections. QT is normal. Urology consult Addendum 12:30pm: Sepsis On reassessment patient has become febrile, and hypotensive. Multiple sources as below. ~1500cc bolus AWB (30cc/kg) added for resuscitation, at bedside assessment lungs are clear and without crackles/rales. Lactate added. Blood cultures added. Antibiotics expanded from Rocephin/azithromycin to c efepime/Flagyl/vancomycin due to sepsis. Will continue to follow cultures. Patient was seen by urology. Suspect findings on CT are chronic and not reflecting of ascending infection, and unclear if intervention would improve his course. Family would prefer conservative approach. Do not recommend cystoscopy or stent placement at this time. Appreciate recommendations. he is improving with volume resuscitation and antibiotics, and repeat lactate remains negative. Will continue treatment as otherwise noted MAP greater than 65 at bedside reassessment, fluids antibiotics continued. Patient has an elevated random cortisol of 20, although this is not markedly elevated given hypotension and patient was recently on steroids. Will give hydrocortisone 50 mg x 1 (2) UTI (urinary tract infection): Plan: UTI, Obstructive UPJ stricture CT shows severe RIGHT hydro and suspected UPJ stricture, multiple bladder calculi with bladder wall thickening Initially received Rocephin, expanded to cefepime/Flagyl/Vanco due to development of sepsis UA with blood, leukocyte esterase, calcium oxalate crystals, no nitrates - Urology Consulted for hydro/stricture. No stranding or flank tenderness consistent with bilateral; however pt subsequently hypotensive, developing sepsis with obstruction. (3) Senile dementia: Plan: Dementia, with history of agitated delirium/combative behavior Stable on Seroquel [employer] End-stage senile dementia, on donepezil/memantine. Has multiple care services at home Bedbound at baseline, ulcer precautions (4) Cough: Plan: Chronic cough DDx includes atypical pneumonia and ILD. CTAchest shows mild airspace opacity of the upper lobes which favor ILD, could represent atypical infection. Patient treated with antibiotics as noted, procalcitonin is negative. Bio fire negative. Sputum culture pending. Initially afebrile, subsequently febrile on reassessment. Chronic cough, this has not changed. (5) Benign prostatic hyperplasia with lower urinary tract symptoms: Plan: BPH Flomax continued, Merchant pending due to sepsis, (6) Diarrhea: Plan: Diarrhea, colonic wall thickening BioFire negative CTA/P with severe colonic wall thickening? Malignant. Patient also with reports of ?1x BRBPR in the stool. No lightheadedness/dizziness/syncope/presyncope. Hemoglobin 14.6, patient is not tachycardic or hypotensive. Low suspicion for acute hemodynamically significant bleed. Will continue to trend H&H. treatment for sepsis as noted Patient was recently on antibiotics. His C. difficile on admission is negative. Cover with antibiotics as noted. Patient/family are not interested in co lonoscopy unless this were likely to produce an immediate benefit in his clinical course, if this for malignancy malignancy patient not want to pursue treatment and would therefore defer diagnostic procedures (7) Goals of care, counseling/discussion: Plan: Patient is seen with his at the bedside, and case was discussed by [id number] on speaker phone. Joana is DNR/DNI. - Initially did not wish for escalation of care/ICU level of care. His medical decision-maker is his Ange. His [id number]-pur Ivette would also like to be kept informed; however knows that all decisions are ultimately up to Ange. With respect to procedures such as cystoscopy or colonoscopy would be interested in these if he was stable enough to survive these and they were likely to produce an immediate benefit in his treatment or condition. cysto is within these goals. If these were very invasive or more for a reason such as malignancy that patient would not want further treatment of would likely defer these. - Following family discussion involving pts brother, , DIL they feel that he would be OK with vasopressors and temporary central line if needed in the ICU Admission and Anticipated Discharge Date Admission Date: June 16, 2024 Subjective Since the bedside on morning assessment. No acute distress. Awakens before falling back asleep, further history is limited by mental status and engagement. Skin is warm and dry at time of initial assessment. Physical Exam Physical Exam: General: Somnolent. Awakens on exam, diamond snot follow commands before falling back asleep HEENT: Atraumatic, normocephalic. Mucous membranes tacky Back: Sacral pressure wound without deep ulceration or discharge Pulm: Diminished but grossly clear, no wheezes/rales/rhonchi Cardiac: irir, -mrg. Radial pulses intact and symmetrical. Abdominal: Nontender, nondistended, soft. BS present. Extremities: Warm, dry. Sensation/strength testing limited by engagement. Resting with legs in flexed position, does move arms equally and glass blower helper on command with symmetrical stride Results & Data Results & Data Vital Signs (Past 12 Hours) Vital Signs Temp Pulse Resp BP Pulse Ox O2 Del Method 06/16/24 07:56 38.2 C H 77 18 110/70 95 Room Air 06/16/24 03:10 Room Air 06/16/24 03:10 36.9 C 109 H 18 99/66 L 97 Room Air 06/16/24 02:00 106 H 15 111/77 95 Room Air 06/16/24 00:00 96 H 17 112/88 96 Room Air 06/15/24 22:00 91 H 19 130/80 96 Room Air PG Care Time/CCT Total # of Minutes Spent Total Time Spent with Patient: Total time spent is greater than 50% in coordination of care (as documented) at patient's floor/unit and/or counseling patient: Coding Level of Care Code 67393 SUB INP/OBS CARE 3/50MIN Diagnoses Fever R50.9 UTI (urinary tract infection) N39.0 Senile dementia F03.90 Cough R05.9 Benign prostatic hyperplasia with lower urinary tract symptoms N40.1 Diarrhea R19.7 Diarrhea type: presumed infectious Goals of care, counseling/discussion Z71.89 (6) Diarrhea Diarrhea type: presumed infectious Qualified Code(s): R19.7 - Diarrhea, unspecified
[2024-06-16] MEDS: PLASMA-LYTE A 1,000 ML IV SCH (08:57)
[2024-06-16] MEDS: cefTRIAXone SODIUM 2,000 MG/50 ML BAG IV SCH (08:57)
[2024-06-16] MEDS: DONEPEZIL HCL 10 MG TAB PO SCH (08:57)
[2024-06-16] MEDS: CLOPIDOGREL BISULFATE 75 MG TAB PO SCH (08:57)
[2024-06-16] MEDS: MEMANTINE HCL 10 MG TAB PO SCH (08:57)
[2024-06-16] MEDS: FINASTERIDE 5 MG TAB PO SCH (08:57)
[2024-06-16] MEDS: AZITHROMYCIN 250 MG TAB PO ONE (08:57)
[2024-06-16] MEDS: TAMSULOSIN HCL 0.4 MG CAP PO SCH (08:58)
[2024-06-16] MEDS: ACETAMINOPHEN 325 MG TAB PO PRN (09:31)
[2024-06-16] MEDS ORDERED: VANCOMYCIN HCL 1,000 MG in SODIUM CHLORIDE 0.9% 500 ML IV ONE (12:54)
[2024-06-16] MEDS ORDERED: VANCOMYCIN CONSULT ACTIVE PRN (12:54)
[2024-06-16] MEDS: PLASMA-LYTE A 1,000 ML IV ONE (13:00)
[2024-06-16] MEDS: LOPERAMIDE HCL 2 MG CAP PO PRN (13:52)
--- NOTE | 2024-06-16 13:58 | Pharmacy Report ---
Pharmacy PK ABX Note - Date of Service June 16, 2024 - Assessment and Plan Assessment 83 year old M admitted with weakness and diarrhea. Unknown source of infection (?pneumonia, UTI). Now with fever and hypotension. Empiric coverage broadened to vancomycin + cefepime + metronidazole. Stool and respiratory Biofire panel ordered - no organisms detected. BC pending UC pending MRSA nasal swab pending Plan Vancomycin * Loading dose: 1000 mg IV x 1 * Maintenance dose: 1000 mg IV every 24 hours - starting ~16 hours after initial dose * Regimen is predicted to achieve target AUC/FILEMON of 400-600 mg/L.hr * AUC/FILEMON at steady state: 607 * Currently ordered x 48 hours only. If plan is to continue beyond 48 hours, will obtain an early level due to patient age, low body weight and predicted AUC/FILEMON near threshold Pharmacy will continue to follow and will adjust dose/frequency as necessary. Thank you. Pharmacy has transitioned to AUC monitoring for vancomycin. AUC/FILEMON is the preferred PK/PD target and is associated with decreased risk of nephrotoxicity compared to traditional trough targets.
[2024-06-16] MEDS: metroNIDAZOLE 500 MG/100 ML BAG IV SCH (14:07)
[2024-06-16] MEDS: CEFEPIME 2,000 MG in SYRINGE 0 ML IV SCH (14:07)
[2024-06-16] MEDS: VANCOMYCIN HCL 1,000 MG in SODIUM CHLORIDE 0.9% 250 ML IV ONE (14:08)
[2024-06-16] MEDS: PLASMA-LYTE A 500 ML IV ONE ×2 (14:26→15:02)
--- NOTE | 2024-06-16 15:48 | Urology Consultation ---
Date of Consultation June 16, 2024 Assessment & Plan (1) Hydronephrosis: (2) Bilateral kidney stones: (3) Bladder calculi: Plan 83-year-old gentleman admitted secondary to a multiday diarrheal illness Lab evaluations are essentially within normal limits with exception of a slight bump in his creatinine which likely can be attributed to his dehydrated status Not currently exhibiting signs or symptoms of sepsis He has a low lactate No leukocytosis CT showing what I suspect is a chronic right UPJ obstruction compounded by a stone that now resides at what I think is the UPJ He does not have stranding or other signs of an obstructed/infected system acutely He has numerous small bladder calculi and a contracted status which could make accessing his ureter somewhat challenging I have discussed the case with Dr. Do twice -before and after personal evaluation with the patient and imaging I have discussed the case with the patient's familywife, sister, [id number] are all present at bedside I have discussed that intervention for the hydronephrosis and stone would be feasible, however, I am uncertain if this would improve his clinical status as I am also highly uncertain that this is the underlying cause of his current symptoms and hospitalization I also discussed that intervention acutely would involve stent placementif unsuccessful would require percutaneous nephrostomy Regardless of whether it was stent or percutaneous nephrostomy, he would then require further surgery to treat his stone The family very much prefers a conservative approach initially I agree with this plan we will plan to observe for the time being, if he continues to improve clinically, we can revisit the idea of elective stone surgery as an outpatient versus simple observation (I suspect this is the family preference) History of Present Illness Attending Physician: Fabiano Do MD History of Present Illness Called by the hospitalist team to evaluate this demented 83-year-old gentleman secondary to incidental discovery of right hydronephrosis on the CT His reports that he has been experiencing severe diarrhea for several days preceding this admission He had no other symptoms or outward complaints He is not particularly verbal given his severe dementia His history has not included any urological interventions or prior knowledge of kidney stones, bladder stones, hydronephrosis His initial GI workup for the diarrhea has been negative His blood pressures have been ranging between 83 and 130 systolic His heart rate has been under 100 He is afebrile His white blood cell count is within normal range His creatinine is 1.2 which is minimally above baseline His UA shows red and white blood cells but nitrate negative His culture is preliminary and a negative I have personally reviewed his CT and my interpretation is slightly different than the covering radiologist I think he likely has a chronic UPJ obstruction compounded by a stone at the UPJhe does not have perinephric or periureteral stranding and there is no ureteral dilation He has numerous small stones within the bladder Allergies Allergy/AdvReac Type Severity Reaction Status Date / Time No Known Allergies Allergy Verified 06/15/24 23:11 Home Medications Medication Instructions Recorded Confirmed Type Wheelchair (Manual) #1 ea 06/06/22 06/15/24 Rx diaper,brief,adult,disposable #120 ea 06/06/22 06/15/24 Rx underpads (Bed Underpads) #100 ea 06/06/22 06/15/24 Rx clopidogrel 75 mg tablet 75 mg PO DAILY #90 tabs 06/29/23 06/15/24 Rx tamsulosin 0.4 mg capsule 0.4 mg PO DAILY #90 caps 08/24/23 06/15/24 Rx donepezil 10 mg tablet 10 mg PO DAILY #90 tabs 08/29/23 06/15/24 Rx finasteride 5 mg tablet 5 mg PO DAILY #90 tabs 08/29/23 06/15/24 Rx memantine 10 mg tablet 10 mg PO BID #180 tabs 08/29/23 06/15/24 Rx quetiapine 50 mg tablet 50 mg PO HS #90 tabs 08/29/23 06/15/24 Rx simvastatin 40 mg tablet 40 mg PO QPM 11/04/23 06/15/24 History levothyroxine 100 mcg tablet 100 mcg PO DAILY #90 tabs 11/29/23 06/15/24 Rx albuterol sulfate 2.5 mg/3 mL 2.5 mg (3 mL) inhalation Q4H PRN 05/10/24 06/15/24 Rx (0.083 %) solution for nebulization shortness of breath or wheezing #90 mL nebulizers #1 ea 05/10/24 06/15/24 Rx Patient History Medical History (Updated 06/16/24 @ 15:46 by Leonid Scott MD) UTI (urinary tract infection) Elevated troponin Pneumonia COVID-19 Benign prostatic hyperplasia with lower urinary tract symptoms Diverticulosis of colon Gait disturbance, post-stroke Impaired fasting glucose Osteoporosis Periodic limb movement disorder Stenosis, cervical spine Stroke, hemorrhagic Tremor Medicare annual wellness visit, subsequent Encounter for health maintenance examination in adult Stroke, hemorrhagic Cervical radiculopathy Cerebral vascular accident Borderline hypertension Hx of chalazion Hx of dermatitis History of cellulitis Surgical History History of colonoscopy (12/02/15) Dr. Lee, sigmoid diverticulosis, no polyps. Due to age, no repeat necessary for screening. Family History Father Myocardial infarction Denies family history of Ovarian cancer Prostate cancer Breast cancer Colorectal cancer Social History Smoking Status: Former smoker Tobacco Type: Cigarettes Second Hand Exposure: No; Do You Dip or Chew Tobacco: No; Hx Alcohol Use: No Hx Substance Use: No Preferred Language: Andorran Communication Ability: Impaired Visual Impairment: No Limitations Hearing Ability: Use of Hearing Aid Endocrinologist Required: No Beliefs That Will Affect Care: None marital status: Current Living Situation: Spouse current occupational status: retired Feels Safe at Home: Yes Dental Care, Regularly: Yes Physical Activity Frequency: Does not Exercise Seatbelt Use: always Sunscreen Use: No Assistive Devices: Walker Review of Systems Review of Systems: All systems reviewed & are unremarkable except as noted in HPI & below Constitutional: Limited review of symptoms secondary to his dementia Physical Exam Physical Exam: Eyes open, follows around the room but does not respond verbally Contracted positioning Abdomen soft, nontender, no right flank pain or tenderness to palpation Merchant catheter in place draining slightly concentrated urine Results & Data Vital Signs (Past 12 Hours) Vital Signs Temp Pulse Resp BP Pulse Ox O2 Del Method 06/16/24 14:26 37.1 C 70 16 95/58 L 06/16/24 12:50 83/52 L 06/16/24 12:15 37.5 C 86 18 84/60 L 94 Room Air 06/16/24 11:35 Room Air 06/16/24 10:49 38.1 C H 06/16/24 07:56 38.2 C H 77 18 110/70 95 Room Air PG Care Time/CCT Total # of Minutes Spent Total Time Spent with Patient: Total time spent is greater than 50% in coordination of care (as documented) at patient's floor/unit and/or counseling patient: Coding Level of Care Code 26222 IN/OBS CONSULT LVL 5,80M Diagnoses Hydronephrosis N13.30 Bilateral kidney stones N20.0 Bladder calculi N21.0
[2024-06-16] MEDS: HYDROCORTISONE SOD 50 MG in SYRINGE 0 ML IV ONE (17:59)
[2024-06-16] MEDS: QUEtiapine FUMARATE 25 MG TABLET PO SCH (21:06)
[2024-06-16] MEDS: SIMVASTATIN 40 MG TAB PO SCH (21:06)
[2024-06-17] MEDS: HYDROCORTISONE SOD 50 MG in SYRINGE 0 ML IV SCH
[2024-06-17] MEDS ORDERED: VANCOMYCIN HCL 750 MG in SODIUM CHLORIDE 0.9% 500 ML IV SCH (01:00)
[2024-06-17] MEDS: VANCOMYCIN HCL 1,000 MG in SODIUM CHLORIDE 0.9% 250 ML IV SCH (06:00)
[2024-06-17] MEDS ORDERED: AZITHROMYCIN 250 MG TAB PO SCH (09:00)
[2024-06-17 09:27] LABS: Hematocrit (blood only) 32.3 % (42.0-52.0); Hemoglobin 10.5 g/dl (14.0-18.0); Mean Corpuscular Hemoglobin 29.8 pg (25.0-34.0); Mean Corpuscular Hgb Conc 32.5 g/dL (32.0-36.0); Mean Corpuscular Volume 91.8 fL (80.0-100.0); Mean Platelet Volume 9.5 fL (9.4-12.4); Platelet Count 251 K/uL (130-400); RDW Coefficient of Variation 13.4 % (11.5-14.5); RDW Standard Deviation 45.5 fL (36.4-46.3); Red Blood Count 3.52 M/uL (4.70-6.10)
[2024-06-17 10:02] LABS: Est GFR (African American) 75.9 ml/min; T4 Free Thyroxine 1.3 ng/dl (0.61-1.60)
[2024-06-17 10:03] LABS: BUN Creatinine Ratio 31.1 (10-20); Creatinine Clr Calc Pharmacy 39.3 ml/min; Est GFR (Non-African American) 65.5 ml/min
--- NOTE | 2024-06-17 11:32 | Hospitalist Progress Note ---
Date of Service June 17, 2024 Assessment & Plan (1) Fever: Plan: Patient admitted 06/16/2024 for 5 to 6 days of diarrhea. -GI Panel/C diff testing reviewed negative -Respiratory Biofire negative -CTAP reviewed 06/16: severe right hydronephrosis. 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 marked thickening of wall of colon which is severe (cannot r/o malignancy). numerous bladder calculi present w/ thickening of wall. Prostate gland enlargement & heterogeneity, mild age indeterminate L2 compression fx, diverticulosis, nonobstructing b/l renal calculi measuring up to 0.6cm -chest CT reviewed 06/16: mild airspace opacities of upper lobes, could relate to atypical infx however favors appearance of interstitial lung disease. age indeterminate mild T5, T10, T11 compression fx - head CT reviewed 06/16: no acute findings, chronic findings noted -urology consulted, note reviewed 06/16, 06/17 -family prefers conservative treatment -on 06/16 patient developed hypotension and was given fluids -received hydrocortisone 50mg x 1 dose due to elevated random cortisol of 20. -blood cultures negative at 24 hour lico, will follow up 48 hour lico -Continue Cefepime, Flagyl, and Vancomycin until cultures return -procal 06/15: 0.19 - reviewed CBC 06/17: hgb dropped to 10.5 (likely dilutional from IVF), WBC WNL at 7.80 - reviewed BMP 06/17: Na elevated at 149, BUN 33, creatinine 1.06 AM CBC, BMP, procal, CRP (2) UTI (urinary tract infection): Plan: -urinalysis 06/15: + for uti -follow up urine cultures negative see fever plan Present on Admission?: Yes (3) Diarrhea: Plan: Diarrhea, colonic wall thickening GI panel and C diff negative CTA/P with severe colonic wall thickening? Malignant. Patient also with reports of ?1x BRBPR in the stool. No lightheadedness/dizziness/syncope/presyncope. Cover with antibiotics as noted. - Patient/family are not interested in colonoscopy unless this were likely to produce an immediate benefit in his clinical course, if this for malignancy malignancy patient not want to pursue treatment and would therefore defer diagnostic procedures -Continue Imodium prn (4) Cough: Plan: unchanged, chronic DDx includes atypical pneumonia and ILD. -CTAchest shows mild airspace opacity of the upper lobes which favor ILD, could represent atypical infection. - Patient treated with antibiotics as noted, procalcitonin is negative. -Bio fire negative. -Sputum culture pending. Plan Chronic conditions: -Dementia: Donepezil, memantine, Seroquel - 1.) Severe malnutrition -BPH: flomax -Sacral decubitus POA - wound nurse consulted Diet: regular, minced/moist Code status: DNR/DNI Disposition: continued inpatient stay for UTI treatment and pending culture results Updated at bedside 06/17 Admission and Anticipated Discharge Date Admission Date: June 16, 2024 Supervising Physician Co-Signing Physician Notes The patient was not seen by me. The chart was reviewed. Case discussed with DEBORAH Shepherd. Agree with assessment and plan Subjective Patient seen and examined today at bedside. Patient non verbal, no history able to be obtained. Per nursing, patients diarrhea has decreased since given Imodium on 06/16. Patient did not eat breakfast for staff but did eat about half his lunch with his feeding him. Spoke with in afternoon, all questions answered. Physical Exam Constitutional: WD/WN, vitals as above Respiratory: normal respiratory effort, lungs clear to auscultation Cardiovascular: RRR, no murmur, no edema Skin: no rashes, warm and dry Psychiatric: non verbal, oriented to self Results & Data Results & Data Vital Signs (Past 12 Hours) Vital Signs Temp Pulse Pulse Resp BP Pulse Ox O2 Del Method 06/17/24 08:38 36.9 C 71 16 104/58 L 97 Room Air 06/17/24 08:00 Room Air 06/17/24 07:34 82 06/17/24 06:07 72 14 98/57 L 97 Room Air 06/17/24 04:45 36.5 C 65 18 95/55 L 95 Room Air 06/17/24 00:04 36.8 C 81 17 120/74 97 Room Air PG Care Time/CCT Total # of Minutes Spent Total Time Spent with Patient: Total time spent is greater than 50% in coordination of care (as documented) at patient's floor/unit and/or counseling patient: Coding Level of Care Code 90705 SUB INP/OBS CARE 3/50MIN Diagnoses Fever, unspecified fever cause R50.9 Fever type: unspecified Urinary tract infection without hematuria, site unspecified N39.0 Hematuria presence: without hematuria Urinary tract infection type: site unspecified Diarrhea R19.7 Diarrhea type: presumed infectious Chronic cough R05.3 Cough type: chronic (1) Fever Fever type: unspecified Qualified Code(s): R50.9 - Fever, unspecified (2) UTI (urinary tract infection) Hematuria presence: without hematuria Urinary tract infection type: site unspecified Qualified Code(s): N39.0 - Urinary tract infection, site not speci fied (3) Diarrhea Diarrhea type: presumed infectious Qualified Code(s): R19.7 - Diarrhea, unspecified (4) Cough Cough type: chronic Qualified Code(s): R05.3 - Chronic cough
--- NOTE | 2024-06-17 11:46 | Urology Progress Note ---
Date of Service June 17, 2024 Assessment & Plan (1) Hydronephrosis: (2) Bilateral kidney stones: (3) Bladder calculi: Plan Follow-up for right hydronephrosis, bilateral nephrolithiasis, bladder stones Pt afebrile and hemodynamically stable at present. Labs today show no leukocytosis and normal renal function. Urine culture 06/15 negative. Blood culture pending. Merchant intact and draining appropriately - urine is misael colored. No plan for urological intervention. Intervention for the hydronephrosis would be feasible, however we are uncertain if this would improve his clinical status and/or if this is the underlying cause of his current symptoms and hospitalization. Will continue with conservative management and monitoring. We can revisit the idea of elective stone surgery as an outpatient per patient/family wishes. Urology will follow peripherally. Please call with any further questions, concerns, or changes in patient status. Admission and Anticipated Discharge Date Admission Date: June 16, 2024 Subjective Patient seen at bedside today. Appears to be resting comfortably in bed and in no acute distress. Awakened briefly to name. Merchant intact and draining misael colored urine. Review of Systems Review of Systems: Unobtainable due to cognitive status Physical Exam Physical Exam: Resting in bed. NAD. Awakened to name but did not respond verbally. No respiratory distress or labored breathing. Contracted positioning. Merchant intact and draining misael colored urine. Results & Data Vital Signs (Past 12 Hours) Vital Signs Temp Pulse Pulse Resp BP Pulse Ox O2 Del Method 06/17/24 08:38 36.9 C 71 16 104/58 L 97 Room Air 06/17/24 08:00 Room Air 06/17/24 07:34 82 06/17/24 06:07 72 14 98/57 L 97 Room Air 06/17/24 04:45 36.5 C 65 18 95/55 L 95 Room Air 06/17/24 00:04 36.8 C 81 17 120/74 97 Room Air PG Care Time/CCT Total # of Minutes Spent Total Time Spent with Patient: Total time spent is greater than 50% in coordination of care (as documented) at patient's floor/unit and/or counseling patient: Coding Level of Care Code 80797 SUB INP/OBS CARE 2/35MIN Diagnoses Hydronephrosis N13.30 Bilateral kidney stones N20.0 Bladder calculi N21.0
[2024-06-17 12:04] LABS: Calcium 8.5 mg/dl (8.6-10.3); Potassium 3.5 mmol/L (3.5-5.1)
[2024-06-17] MEDS: PLASMA-LYTE A 1,000 ML IV SCH (18:36)
--- NOTE | 2024-06-17 19:14 | XRay Report ---
KUB CLINICAL HISTORY: diarrhea, eval for constipation. COMPARISON STUDY: CT of the abdomen and pelvis June 15, 2024. FINDINGS: This exam is compromised given difficulty positioning. The catheter projects over the pelvi s. This favors a Merchant. The bowel gas pattern is normal. The amount of stool is within normal limits. IMPRESSION: 1. Exam compromised given difficulty positioning. No evidence for a bowel obstruction. 2. Amount of stool within normal limits. ACT 112: Negative or not required by law. Electronically signed by: Deshaun Painter M.D. 06/17/2024 7:12 PM
[2024-06-18 06:40] LABS: Hematocrit (blood only) 31.5 % (42.0-52.0); Hemoglobin 10.2 g/dl (14.0-18.0); Mean Corpuscular Hemoglobin 29.8 pg (25.0-34.0); Mean Corpuscular Hgb Conc 32.4 g/dL (32.0-36.0); Mean Corpuscular Volume 92.1 fL (80.0-100.0); Mean Platelet Volume 9.6 fL (9.4-12.4); Platelet Count 269 K/uL (130-400); RDW Coefficient of Variation 13.5 % (11.5-14.5); RDW Standard Deviation 45.6 fL (36.4-46.3); Red Blood Count 3.42 M/uL (4.70-6.10); White Blood Count 12.28 K/ul (4.8-10.8)
[2024-06-18 06:50] LABS: BUN Creatinine Ratio 33.3 (10-20); C Reactive Protein 4.81 mg/dl (0-0.5); Calcium 8.1 mg/dl (8.6-10.3); Creatinine Clr Calc Pharmacy 37.5 ml/min; Est GFR (African American) 71.8 ml/min; Est GFR (Non-African American) 61.9 ml/min; Potassium 3.2 mmol/L (3.5-5.1)
[2024-06-18] MEDS: DEXTROSE 5% 1,000 ML IV SCH ×2 (09:10→17:58)
[2024-06-18] MEDS: POTASSIUM CHLORIDE / WTR 10 MEQ/100 ML PLCT IV ONE (09:10)
--- NOTE | 2024-06-18 11:44 | Hospitalist Progress Note ---
Date of Service June 18, 2024 Assessment & Plan (1) Fever: Plan: Patient admitted 06/16/2024 for 5 to 6 days of diarrhea. -GI Panel/C diff testing reviewed negative -Respiratory Biofire negative -CTAP reviewed 06/16: severe right hydronephrosis. 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 marked thickening of wall of colon which is severe (cannot r/o malignancy). numerous bladder calculi present w/ thickening of wall. Prostate gland enlargement & heterogeneity, mild age indeterminate L2 compression fx, diverticulosis, nonobstructing b/l renal calculi measuring up to 0.6cm -chest CT reviewed 06/16: mild airspace opacities of upper lobes, could relate to atypical infx however favors appearance of interstitial lung disease. age indeterminate mild T5, T10, T11 compression fx - head CT reviewed 06/16: no acute findings, chronic findings noted -urology consulted, note reviewed 06/16, 06/17 -family prefers conservative treatment -blood cultures negative at 48 hour lico -consulted ID, note reviewed 06/18 -can discontinue vancomycin due to negative MRSA swab -transition to PO abx once diarrhea improves - reviewed CBC 06/18: hgb 10. WBC 12.28 - reviewed BMP 06/18: Na elevated at 154, BUN 35, creatinine 1.14 -reviewed CRP and procal 06/18: 4.81/0.14 -06/18: did discuss with and daughter in law current goals of care. They are in agreement that they would like to continue to treat conservatively and avoid procedures. They are not interested in pursuing a colonoscopy at this time for his diarrhea and abnormal CT findings. They would like to continue on treatment with antibiotics and IV fluids to see if his clinical status improves. Patient is also not eating or drinking much which they are aware of. They are not interested in comfort measures only at this time and would like to continue with conservative management. All questions were answered. Will continue to re- discuss goals of care throughout hospitalization. AM CBC, BMP, CRP (2) UTI (urinary tract infection): Plan: -urinalysis 06/15: + for uti -follow up urine cultures negative see fever plan (3) Diarrhea: Plan: Diarrhea, colonic wall thickening GI panel and C diff negative CTA/P with severe colonic wall thickening? Malignant. Patient also with reports of ?1x BRBPR in the stool. No lightheadedness/dizziness/syncope/presyncope. Cover with antibiotics as noted. - Patient/family are not interested in colonoscopy unless this were likely to produce an immediate benefit in his clinical course, if this for malignancy malignancy patient not want to pursue treatment and would therefore defer diagnostic procedures -Continue Imodium prn (4) Cough: Plan: unchanged, chronic DDx includes atypical pneumonia and ILD. -CTAchest shows mild airspace opacity of the upper lobes which favor ILD, could represent atypical infection. - Patient treated with antibiotics as noted, procalcitonin is negative. -Bio fire negative. -Sputum culture pending. (5) Hypernatremia: Plan: When patient originally presented to ED, sodium levels WNL. Escalated to 154 on 06/18. May be result of dehydration due to poor oral intake. -patient given 1L Dextrose in water with improvement to 151 -will continue to monitor -potassium levels low on 06/18 (3.2) and repleted with 1 IV dose with improvement to 3.5 (6) Hypotension: Plan: On 06/16 patient developed hypotension. - likely due to infection vs dehydration/malnutrition -s/p 3 L LR -s/p 4 L plasma-lyte -s/p IV hydrocortisone 06/16 -s/p 1 L Dextrose in water 06/18 -will continue to monitor BP and give fluids as needed. Plan Chronic conditions: -Dementia: Donepezil, memantine, Seroquel - 1.) Severe malnutrition -BPH: flomax -Sacral decubitus POA - wound nurse consulted Diet: regular, minced/moist Code status: DNR/DNI Disposition: continued inpatient stay for UTI treatment and pending culture results lengthy discussion with at bedside and daughter in law via phone 06/18 Admission and Anticipated Discharge Date Admission Date: June 16, 2024 Subjective Patient seen and examined this morning at bedside. Patient also seen in afternoon with at bedside and daughter in law on phone. Patient non verbal. Patient did not eat much for breakfast/lunch and has been sleeping majority of day. Physical Exam 2 Constitutional: WD/WN, vitals as above Eyes: PERRL, conjunctivae normal, anicteric sclerae Respiratory: normal respiratory effort, lungs clear to auscultation Cardiovascular: bradycardic Skin: no rashes, warm and dry Psychiatric: nonverbal, somnolent Results & Data Results & Data Vital Signs (Past 12 Hours) Vital Signs Temp Pulse Pulse Resp BP Pulse Ox O2 Del Method 06/18/24 11:22 58 L 06/18/24 11:17 36.3 C L 51 L 18 116/59 L 96 Room Air 06/18/24 09:10 Room Air 06/18/24 07:54 36.4 C L 59 L 16 95/50 L 95 Room Air 06/18/24 04:35 36.6 C 67 18 99/60 L 93 Room Air Laboratory Results 06/18/24 06:07 06/18/24 14:44 PG Care Time/CCT Total # of Minutes Spent Total Time Spent with Patient: Total time spent is greater than 50% in coordination of care (as documented) at patient's floor/unit and/or counseling patient: Coding Level of Care Code 80497 SUB INP/OBS CARE 3/50MIN Diagnoses Fever, unspecified fever cause R50.9 Fever type: unspecified Urinary tract infection without hematuria, site unspecified N39.0 Hematuria presence: without hematuria Urinary tract infection type: site unspecified Diarrhea R19.7 Diarrhea type: presumed infectious Chronic cough R05.3 Cough type: chronic Hypernatremia E87.0 Hypotension, unspecified hypotension type I95.9 Hypotension type: unspecified hypotension type (1) Fever Fever type: unspecified Qualified Code(s): R50.9 - Fever, unspecified (2) UTI (urinary tract infection) Hematuria presence: without hematuria Urinary tract infection type: site unspecified Qualified Code(s): N39.0 - Urinary tract infection, site not specified (3) Diarrhea Diarrhea type: presumed infectious Qualified Code(s): R19.7 - Diarrhea, unspecified (4) Cough Cough type: chronic Qualified Code(s): R05.3 - Chronic cough (6) Hypotension Hypotension type: unspecified hypotension type Qualified Code(s): I95.9 - Hypotension, unspecified
--- NOTE | 2024-06-18 13:52 | Infectious Disease Consult ---
Date of Consultation June 18, 2024 Assessment & Plan (1) Bilateral kidney stones: (2) Hydronephrosis: Plan PROBLEM LIST: Diarrhea, imaging rectal wall thickening R hydronephrosis, UPJ Stricture Elevated WBC MICRO Biofire negative 06/16 Bcx NG 06/16 Ucx 1k colonies MRSA nares negative ABX Vancomycin 06/16 Cefepime 06/16 Flagyl 06/16 83yo M with past medical history of CVA, dementia, hypothyroidism who is predominantly bedbound, admitted on 06/15/24 with diarrhea and hypotension. Per review of EMR, patients became concerned b/c decreased po intake and non-bloody diarrhea. In the ED, WBC 8, platelets 301, Cr 1.2. He was found to be in Afib. Stool PCR negative, Cdiff negative, MRSA nares negative. UA 11-20 wbc, 1+LE. 06/16 Blood cultures no growth. 06/16 Ucx <1K colonies. CT A/P Severe right hydronephrosis with c/f UPJ stricture, severe thickening of the rectal wall. Cannot exclude underlying malignancy. CT Chest Mild airspace opacities of the upper lobes could relate to atypical infection, however favors the appearance of interstitial lung disease. He was given hydrocortisone for hypotension Patient has been started on Vancomycin, Cefepime and Flagyl. Urology consulted and No plan for urological intervention. Discussion Patient a/w diarrhea and hypotension and found to have right sided hydronephrosis. Stool workup negative. Bcx/Ucx unrevealing. MRSA nares negative. Family would like to hold on surgical intervention Suspect rectal inflammation/diarrhea may be driving force RECOMMEND -DC Vancomycin negative MRSA nares -Can c/w Cefepime and Flagyl until blood cx are neg x 48 hours -Can likely change to oral abx once diarrhea has improved -Watch WBC, likely d/t hydrocortisone ID will follow Cathleen Perrin MD Infectious Diseases Consultation Information This patient recommendation is based on a telemedicine consult request which was completed asynchronously through chart review and information provided by the primary physician. The patient was not seen or examined today. The evaluation is consultative in nature and all patient care and treatment decisions can either be accepted or rejected by the patient's primary hospital-based treating physician using their own independent medical judgment for their patient. Head Trimmer contact information: Please call [facility] [phone]. (Phone Number For Physician Use Only) Time Spent Reviewing Chart: 31+ minutes History of Present Illness Reason for Consultation: Diarrhea Hydronephrosis Requesting Physician: Dr. Johnson Attending Physician: Misha Johnson History of Present Illness 83yo M with past medical history of CVA, dementia, hypothyroidism who is predominantly bedbound, admitted on 06/15/24 with diarrhea and hypotension. Per review of EMR, patients became concerned b/c decreased po intake and non-bloody diarrhea. In the ED, WBC 8, platelets 301, Cr 1.2. He was found to be in Afib. Stool PCR negative, Cdiff negative, MRSA nares negative. UA 11-20 wbc, 1+LE. 06/16 Blood cultures no growth. 06/16 Ucx <1K colonies. CT A/P Severe right hydronephrosis with c/f UPJ stricture, severe thickening of the rectal wall. Cannot exclude underlying malignancy. CT Chest Mild airspace opacities of the upper lobes could relate to atypical infection, however favors the appearance of interstitial lung disease. He was given hydrocortisone for hypotension Patient has been started on Vancomycin, Cefepime and Flagyl. Urology consulted and No plan for urological intervention. Allergies Allergy/AdvReac Type Severity Reaction Status Date / Time No Known Allergies Allergy Verified 06/15/24 23:11 Home Medications Medication Instructions Recorded Confirmed Type Wheelchair (Manual) #1 ea 06/06/22 06/15/24 Rx diaper,brief,adult,disposable #120 ea 06/06/22 06/15/24 Rx underpads (Bed Underpads) #100 ea 06/06/22 06/15/24 Rx clopidogrel 75 mg tablet 75 mg PO DAILY #90 tabs 06/29/23 06/15/24 Rx tamsulosin 0.4 mg capsule 0.4 mg PO DAILY #90 caps 08/24/23 06/15/24 Rx donepezil 10 mg tablet 10 mg PO DAILY #90 tabs 08/29/23 06/15/24 Rx finasteride 5 mg tablet 5 mg PO DAILY #90 tabs 08/29/23 06/15/24 Rx memantine 10 mg tablet 10 mg PO BID #180 tabs 08/29/23 06/15/24 Rx quetiapine 50 mg tablet 50 mg PO HS #90 tabs 08/29/23 06/15/24 Rx simvastatin 40 mg tablet 40 mg PO QPM 11/04/23 06/15/24 History levothyroxine 100 mcg tablet 100 mcg PO DAILY #90 tabs 11/29/23 06/15/24 Rx albuterol sulfate 2.5 mg/3 mL 2.5 mg (3 mL) inhalation Q4H PRN 05/10/24 06/15/24 Rx (0.083 %) solution for nebulization shortness of breath or wheezing #90 mL nebulizers #1 ea 05/10/24 06/15/24 Rx Patient History Medical History UTI (urinary tract infection) Elevated troponin Pneumonia COVID-19 Benign prostatic hyperplasia with lower urinary tract symptoms Diverticulosis of colon Gait disturbance, post-stroke Impaired fasting glucose Osteoporosis Periodic limb movement disorder Stenosis, cervical spine Stroke, hemorrhagic Tremor Medicare annual wellness visit, subsequent Encounter for health maintenance examination in adult Stroke, hemorrhagic Cervical radiculopathy Cerebral vascular accident Borderline hypertension Hx of chalazion Hx of dermatitis History of cellulitis Surgical History History of colonoscopy (12/02/15) Dr. Lee, sigmoid diverticulosis, no polyps. Due to age, no repeat necessary for screening. Family History Father Myocardial infarction Denies family history of Ovarian cancer Prostate cancer Breast cancer Colorectal cancer Social History Smoking Status: Former smoker Tobacco Type: Cigarettes Second Hand Exposure: No; Do You Dip or Chew Tobacco: No; Hx Alcohol Use: No Hx Substance Use: No Preferred Language: Moldovan Communication Ability: Impaired Visual Impairment: No Limitations Hearing Ability: Use of Hearing Aid Clinical Nurse Manager Required: No Beliefs That Will Affect Care: None marital status: Current Living Situation: Spouse current occupational status: retired Feels Safe at Home: Yes Dental Care, Regularly: Yes Physical Activity Frequency: Does not Exercise Seatbelt Use: always Sunscreen Use: No Assistive Devices: Hospital Bed, Mechanical Lift, Walker and Wheelchair Results & Data Vital Signs (Past 12 Hours) Vital Signs Temp Pulse Pulse Resp BP Pulse Ox O2 Del Method 06/18/24 11:22 58 L 06/18/24 11:17 36.3 C L 51 L 18 116/59 L 96 Room Air 06/18/24 09:10 Room Air 06/18/24 07:54 36.4 C L 59 L 16 95/50 L 95 Room Air 06/18/24 04:35 36.6 C 67 18 99/60 L 93 Room Air Laboratory Results Short CBC 06/18/24 Range/Units 06:07 WBC 12.28 H (4.8-10.8) K/ul Hgb 10.2 L (14.0-18.0) g/dl Hct 31.5 L (42.0-52.0) % Plt Count 269 (130-400) K/uL BMP 06/18/24 06:07 Sodium 154 H Potassium 3.2 L Chloride 122 H Carbon Dioxide 27 BUN 37 H Creatinine 1.11 Glucose 114 H Calcium 8.1 L Microbiology 06/16/24 13:05 Blood Aerobic Blood Culture - Preliminary No growth in Aerobic bottle after 24 hours. 06/16/24 13:05 Blood Anaerobic Blood Culture - Preliminary No growth in Anaerobic bottle after 24 hours. 06/15/24 19:56 Urine,Clean Catch Urine Culture - Final No growth - less than 1,000 colonies/mL. Diagnostic Findings Abdomen/Pelvis CT 06/15/24 19:40 Exam(s): CT ABDOMEN + PELVIS Without Contrast EXAM: CT Abdomen and Pelvis Without Intravenous Contrast CLINICAL HISTORY: Weakness and diarrhea. TECHNIQUE: Axial computed tomography images of the abdomen and pelvis without intravenous contrast. CTDI is 63 mGy and DLP is 1098 mGy-cm. Automated exposure control was utilized for the study. A dose lowering technique was utilized adhering to the principles of ALARA. COMPARISON: No relevant prior studies available. FINDINGS: Lung bases: Unremarkable. No mass. No consolidation. ABDOMEN: Liver: Unremarkable. Gallbladder and bile ducts: Unremarkable. No calcified stones. No ductal dilation. Pancreas: Unremarkable. No ductal dilation. Spleen: Unremarkable. No splenomegaly. Adrenals: Unremarkable. No mass. Kidneys and ureters: Severe right hydronephrosis. The ureter is decompressed. 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 Nonobstructing bilateral renal calculi measure up to 0.6 cm. No left hydronephrosis. Stomach and bowel: There is marked thickening of the wall of the colon which is a severe of the rectum. Diverticulosis. No obstruction. PELVIS: Appendix: No findings to suggest acute appendicitis. Bladder: Numerous bladder calculi are present with thickening of the wall. Reproductive: Prostate gland enlargement and heterogeneity. ABDOMEN and PELVIS: Intraperitoneal space: Unremarkable. No free air. No significant fluid collection. Bones/joints: Mild age indeterminate L2 compression fracture. There are degenerative changes of the spine. No acute fracture. No dislocation. Soft tissues: Unremarkable. Vasculature: Moderate atherosclerotic disease. No abdominal aortic aneurysm. Lymph nodes: Unremarkable. No enlarged lymph nodes. IMPRESSION: 1. Severe right hydronephrosis. The ureter is decompressed. 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 2. There is marked thickening of the wall of the colon which is a severe of the rectum. This could represent infectious or inflammatory etiologies. Cannot exclude underlying malignancy. 3. Numerous bladder calculi are present with thickening of the wall. Cannot exclude cystitis. 4. Prostate gland enlargement and heterogeneity. 5. Mild age indeterminate L2 compression fracture. 6. Diverticulosis. 7. Nonobstructing bilateral renal calculi measure up to 0.6 cm. Electronically signed by: Shani Cueva MD 06/15/24 23:[address] 06/15/24 19:40 Exam(s): CT CHEST Without Contrast EXAM: CT Chest Without Intravenous Contrast CLINICAL HISTORY: Cough. TECHNIQUE: Axial computed tomography images of the chest without intravenous contrast. CTDI is 63 mGy and DLP is 1098 mGy-cm. Automated exposure control was utilized for the study. A dose lowering technique was utilized adhering to the principles of ALARA. COMPARISON: Chest radiograph 09/21/2022 FINDINGS: Lungs: Mild airspace opacities of the upper lobes could relate to atypical infection, however favors the appearance of interstitial lung disease. Pleural space: Unremarkable. No pneumothorax. No significant effusion. Heart: Coronary artery calcifications are present. No cardiomegaly. No significant pericardial effusion. Bones/joints: Age indeterminant mild T5, T10 and T11 compression fractures. There is a right shoulder arthroplasty. There are degenerative changes of the spine. No acute fracture. No dislocation. Soft tissues: Unremarkable. Vasculature: Moderate atherosclerotic disease. Lymph nodes: Unremarkable. No enlarged lymph nodes. Kidneys and ureters: Incidentally noted severe right hydronephrosis. IMPRESSION: 1. Mild airspace opacities of the upper lobes could relate to atypical infection, however favors the appearance of interstitial lung disease. 2. Incidentally noted severe right hydronephrosis. 3. Age indeterminant mild T5, T10 and T11 compression fractures. Electronically signed by: Shani Cueva MD 06/15/24 23:[address] 06/15/24 19:41 Exam(s): CT HEAD Without Contrast EXAM: CT Head Without Intravenous Contrast CLINICAL HISTORY: Weakness and diarrhea. TECHNIQUE: Axial computed tomography images of the head/brain without intravenous contrast. CTDI is 63 mGy and DLP is 1098 mGy-cm. Automated exposure control was utilized for the study. A dose lowering technique was utilized adhering to the principles of ALARA. COMPARISON: MRI brain 09/22/2022 old brain FINDINGS: Brain: There is encephalomalacia of both frontal lobes. No intracranial hemorrhage, mass-effect or midline shift. Mild periventricular white matter evident these are most consistent with chronic microangiopathy. Ventricles: There is stable prominence of the ventricles. Bones/joints: Unremarkable. No acute fracture. Soft tissues: Unremarkable. Sinuses: Unremarkable as visualized. No acute sinusitis. Mastoid air cells: Unremarkable as visualized. No mastoid effusion. IMPRESSION: There is stable prominence of the ventricles. This could relate to central atrophy or normal pressure hydrocephalus although unchanged since the previous examination. Otherwise, no acute finding. Electronically signed by: Shani Cueva MD 06/15/24 23:33 PM KUB X-Ray 06/17/24 18:27 KUB CLINICAL HISTORY: diarrhea, eval for constipation. COMPARISON STUDY: CT of the abdomen and pelvis June 15, 2024. FINDINGS: This exam is compromised given difficulty positioning. The catheter projects over the pelvis. This favors a Merchant. The bowel gas pattern is normal. The amount of stool is within normal limits. IMPRESSION: 1. Exam compromised given difficulty positioning. No evidence for a bowel obstruction. 2. Amount of stool within normal limits. ACT 112: Negative or not required by law. Electronically signed by: Deshaun Painter M.D. 06/17/2024 7:12 PM Medications Administered Current Inpatient Medications Acetaminophen (Acetaminophen 325 Mg Tab) 650 mg PO Q4H PRN PRN Reason: pain/fever Stop: 07/16/24 03:12 Last Admin: 06/16/24 13:51 Dose: 650 mg Albuterol (Albuterol 0.083% Nebu Soln 3 Ml Vial) 2.5 mg INH Q4H PRN; Protocol PRN Reason: shortness of breath or wheezing Stop: 07/16/24 03:12 Clopidogrel Bisulfate (Clopidogrel Bisulfate 75 Mg Tab) 75 mg PO DAILY IBRAHIMA Stop: 07/16/24 08:59 Last Admin: 06/18/24 09:11 Dose: 75 mg Donepezil HCl (Donepezil Hcl 10 Mg Tab) 10 mg PO DAILY IBRAHIMA Stop: 07/16/24 08:59 Last Admin: 06/18/24 09:11 Dose: 10 mg Finasteride (Finasteride 5 Mg Tab) 5 mg PO DAILY IBRAHIMA Stop: 07/16/24 08:59 Last Admin: 06/18/24 09:11 Dose: 5 mg Cefepime HCl 2,000 mg/ Syringe 20 mls @ 5 mls/min IV Q12H [facility] [place]; Protocol Stop: 06/21/24 23:59 Last Admin: 06/18/24 13:43 Dose: 5 mls/min Metronidazole (Flagyl) 500 mg in 100 mls @ 100 mls/hr IV Q8H [facility] [place]; Protocol Stop: 06/21/24 23:59 Last Admin: 06/18/24 13:11 Dose: 100 mls/hr Vancomycin HCl 1,000 mg/ (Sodium Chloride) 270 mls @ 200 mls/hr IV Q24H [facility] [place] Stop: 06/21/24 23:59 Last Infusion: 06/18/24 07:31 Dose: Infused Dextrose (D5w) 1,000 mls @ 125 mls/hr IV .Q8H [facility] [place] Stop: 06/18/24 15:59 Last Admin: 06/18/24 09:10 Dose: 125 mls/hr Levothyroxine Sodium (Levothyroxine Sodium 100 Mcg Tablet) 100 mcg PO DAILYBB [facility] [place] Stop: 07/16/24 06:29 Last Admin: 06/18/24 05:40 Dose: 100 mcg Loperamide HCl (Loperamide Hcl 2 Mg Cap) 2 mg PO Q6H PRN PRN Reason: Diarrhea Stop: 07/16/24 03:12 Last Admin: 06/16/24 13:52 Dose: 2 mg Memantine (Memantine Hcl 10 Mg Tab) 10 mg PO BID [facility] [place] Stop: 07/16/24 08:59 Last Admin: 06/18/24 09:11 Dose: 10 mg Miscellaneous Information (Vancomycin Consult Active) 1 each N/A UD PRN PRN Reason: Consult Stop: 07/16/24 12:53 Ondansetron HCl (Ondansetron Inj 2 Mg/Ml 2 Ml Vial) 4 mg IV Q6H PRN PRN Reason: Nausea Stop: 07/16/24 03:12 Quetiapine Fumarate (Quetiapine Fumarate 25 Mg Tablet) 50 mg PO HS IBRAHIMA Stop: 07/16/24 20:59 Last Admin: 06/17/24 20:45 Dose: 50 mg Simvastatin (Simvastatin 40 Mg Tab) 40 mg PO QPM IBRAHIMA Stop: 07/16/24 20:59 Last Admin: 06/17/24 20:45 Dose: 40 mg Tamsulosin HCl (Tamsulosin Hcl 0.4 Mg Cap) 0.4 mg PO DAILY IBRAHIMA Stop: 07/16/24 08:59 Last Admin: 06/18/24 09:11 Dose: 0.4 mg
[2024-06-18 15:37] LABS: BUN Creatinine Ratio 30.7 (10-20); Creatinine Clr Calc Pharmacy 36.5 ml/min; Est GFR (African American) 69.5 ml/min; Potassium 3.5 mmol/L (3.5-5.1)
[2024-06-19] MEDS: VANCOMYCIN LEVEL ONE (05:30)
[2024-06-19 06:39] LABS: Hematocrit (blood only) 32.2 % (42.0-52.0); Hemoglobin 10.5 g/dl (14.0-18.0); Mean Corpuscular Hemoglobin 30.4 pg (25.0-34.0); Mean Corpuscular Hgb Conc 32.6 g/dL (32.0-36.0); Mean Corpuscular Volume 93.3 fL (80.0-100.0); Mean Platelet Volume 9.2 fL (9.4-12.4); Nucleated RBC # (auto) 0.02 K/uL (0.00-0.12); Nucleated RBC % (auto) 0.2 %; Platelet Count 232 K/uL (130-400); RDW Coefficient of Variation 13.4 % (11.5-14.5); RDW Standard Deviation 45.8 fL (36.4-46.3); Red Blood Count 3.45 M/uL (4.70-6.10); White Blood Count 11.57 K/ul (4.8-10.8)
[2024-06-19 06:56] LABS: BUN Creatinine Ratio 29.6 (10-20); Calcium 7.9 mg/dl (8.6-10.3); Creatinine Clr Calc Pharmacy 38.5 ml/min; Est GFR (African American) 74.2 ml/min; Potassium 3.2 mmol/L (3.5-5.1)
[2024-06-19] MEDS: POTASSIUM CHLORIDE / WTR 10 MEQ/100 ML PLCT IV ONE (08:37)
--- NOTE | 2024-06-19 10:45 | Infectious Disease Progress Nt ---
Date of Service June 19, 2024 Assessment & Plan (1) Bilateral kidney stones: (2) Hydronephrosis: Plan PROBLEM LIST: Diarrhea, imaging rectal wall thickening R hydronephrosis, UPJ Stricture Elevated WBC MICRO Biofire negative 06/16 Bcx NG 06/16 Ucx 1k colonies MRSA nares negative ABX Vancomycin 06/16 Cefepime 06/16 Flagyl 06/16 83yo M with past medical history of CVA, dementia, hypothyroidism who is predominantly bedbound, admitted on 06/15/24 with diarrhea and hypotension. Per review of EMR, patients became concerned b/c decreased po intake and non-bloody diarrhea. In the ED, WBC 8, platelets 301, Cr 1.2. He was found to be in Afib. Stool PCR negative, Cdiff negative, MRSA nares negative. UA 11-20 wbc, 1+LE. 06/16 Blood cultures no growth. 06/16 Ucx <1K colonies. CT A/P Severe right hydronephrosis with c/f UPJ stricture, severe thickening of the rectal wall. Cannot exclude underlying malignancy. CT Chest Mild airspace opacities of the upper lobes could relate to atypical infection, however favors the appearance of interstitial lung disease. He was given hydrocortisone for hypotension Patient has been started on Vancomycin, Cefepime and Flagyl. Urology consulted and No plan for urological intervention. Discussion Patient a/w diarrhea and hypotension and found to have right sided hydronephrosis. Stool workup negative. Bcx/Ucx unrevealing. MRSA nares negative. Family would like to hold on surgical intervention Suspect rectal inflammation/diarrhea may be driving force vs hydronephrosis. Since no growth, can narrow further to augmentin po RECOMMEND -Clinically improved -Can dc flagyl/cefepime -Narrow to Augmentin 875/125 1 po bid x 5 days -Watch WBC, now improved likely d/t hydrocortisone ID will sign off - Cathleen Perrin MD Infectious Diseases Admission and Anticipated Discharge Date Admission Date: June 16, 2024 Subjective This patient recommendation is based on a telemedicine consult request which was completed asynchronously through chart review and information provided by the primary physician. The patient was not seen or examined today. The evaluation is consultative in nature and all patient care and treatment decisions can either be accepted or rejected by the patient's primary hospital-based treating physician using their own independent medical judgment for their patient. Time Spent Reviewing Chart: 31+ minutes Results & Data Vital Signs (Past 12 Hours) Vital Signs Temp Pulse Pulse Resp BP Pulse Ox O2 Del Method 06/19/24 07:37 36.6 C 64 18 127/61 96 Room Air 06/19/24 05:31 62 06/19/24 03:24 36.5 C 65 16 152/82 H 95 Room Air 06/19/24 00:00 65 14 Room Air Laboratory Results Laboratory Results - last 48 hr 06/17/24 06/17/24 06/18/24 08:28 12:47 06:07 WBC 12.28 H RBC 3.42 L Hgb 10.2 L Hct 31.5 L MCV 92.1 MCH 29.8 MCHC 32.4 RDW Std Deviation 45.6 RDW Coeff of Fabiano 13.5 Plt Count 269 MPV 9.6 Absolute Nucleated RBC Nucleated RBC % (auto) Sodium 149 H 154 H Potassium 3.5 3.2 L Chloride 118 H 122 H Carbon Dioxide 22 27 Anion Gap 9 5 BUN 37 H Creatinine 1.11 Est Cr Clr Drug Dosing 37.5 Est GFR ( Amer) 71.8 Est GFR (Non-Af Amer) 61.9 BUN/Creatinine Ratio 33.3 H Glucose 114 H Calcium 8.5 L 8.1 L C-Reactive Protein 4.81 H Procalcitonin 0.14 Free T3 1.50 L 06/18/24 06/19/24 14:44 06:15 WBC 11.57 H RBC 3.45 L Hgb 10.5 L Hct 32.2 L MCV 93.3 MCH 30.4 MCHC 32.6 RDW Std Deviation 45.8 RDW Coeff of Fabiano 13.4 Plt Count 232 MPV 9.2 L Absolute Nucleated RBC 0.02 Nucleated RBC % (auto) 0.2 Sodium 151 H 148 H Potassium 3.5 3.2 L Chloride 120 H 118 H Carbon Dioxide 27 27 Anion Gap 4 3 BUN 35 H 32 H Creatinine 1.14 1.08 Est Cr Clr Drug Dosing 36.5 38.5 Est GFR ( Amer) 69.5 74.2 Est GFR (Non-Af Amer) 60.0 64.0 BUN/Creatinine Ratio 30.7 H 29.6 H Glucose 143 H 108 H Calcium 8.0 L 7.9 L C-Reactive Protein Procalcitonin Free T3 Microbiology 06/16/24 13:05 Blood Aerobic Blood Culture - Preliminary No growth in Aerobic bottle after 48 hours. 06/16/24 13:05 Blood Anaerobic Blood Culture - Preliminary No growth in Anaerobic bottle after 48 hours. 06/15/24 19:56 Urine,Clean Catch Urine Culture - Final No growth - less than 1,000 colonies/mL. Diagnostic Findings KUB X-Ray 06/17/24 18:27 KUB CLINICAL HISTORY: diarrhea, eval for constipation. COMPARISON STUDY: CT of the abdomen and pelvis June 15, 2024. FINDINGS: This exam is compromised given difficulty positioning. The catheter projects over the pelvis. This favors a Merchant. The bowel gas pattern is normal. The amount of stool is within normal limits. IMPRESSION: 1. Exam compromised given difficulty positioning. No evidence for a bowel obstruction. 2. Amount of stool within normal limits. ACT 112: Negative or not required by law. Electronically signed by: Deshaun Painter M.D. 06/17/2024 7:12 PM Medications Administered Current Inpatient Medications Acetaminophen (Acetaminophen 325 Mg Tab) 650 mg PO Q4H PRN PRN Reason: pain/fever Stop: 07/16/24 03:12 Last Admin: 06/16/24 13:51 Dose: 650 mg Albuterol (Albuterol 0.083% Nebu Soln 3 Ml Vial) 2.5 mg INH Q4H PRN; Protocol PRN Reason: shortness of breath or wheezing Stop: 07/16/24 03:12 Clopidogrel Bisulfate (Clopidogrel Bisulfate 75 Mg Tab) 75 mg PO DAILY IBRAHIMA Stop: 07/16/24 08:59 Last Admin: 06/19/24 08:29 Dose: 75 mg Donepezil HCl (Donepezil Hcl 10 Mg Tab) 10 mg PO DAILY IBRAHIMA Stop: 07/16/24 08:59 Last Admin: 06/19/24 08:28 Dose: 10 mg Finasteride (Finasteride 5 Mg Tab) 5 mg PO DAILY IBRAHIMA Stop: 07/16/24 08:59 Last Admin: 06/19/24 08:29 Dose: 5 mg Cefepime HCl 2,000 mg/ Syringe 20 mls @ 5 mls/min IV Q12H IBRAHIMA; Protocol Stop: 06/21/24 23:59 Last Admin: 06/19/24 01:30 Dose: 5 mls/min Metronidazole (Flagyl) 500 mg in 100 mls @ 100 mls/hr IV Q8H IBRAHIMA; Protocol Stop: 06/21/24 23:59 Last Infusion: 06/19/24 06:00 Dose: Infused Levothyroxine Sodium (Levothyroxine Sodium 100 Mcg Tablet) 100 mcg PO DAILYBB [facility] Stop: 07/16/24 06:29 Last Admin: 06/19/24 06:28 Dose: 100 mcg Loperamide HCl (Loperamide Hcl 2 Mg Cap) 2 mg PO Q6H PRN PRN Reason: Diarrhea Stop: 07/16/24 03:12 Last Admin: 06/16/24 13:52 Dose: 2 mg Memantine (Memantine Hcl 10 Mg Tab) 10 mg PO BID IBRAHIMA Stop: 07/16/24 08:59 Last Admin: 06/19/24 08:28 Dose: 10 mg Ondansetron HCl (Ondansetron Inj 2 Mg/Ml 2 Ml Vial) 4 mg IV Q6H PRN PRN Reason: Nausea Stop: 07/16/24 03:12 Quetiapine Fumarate (Quetiapine Fumarate 25 Mg Tablet) 50 mg PO HS [facility] Stop: 07/16/24 20:59 Last Admin: 06/18/24 20:01 Dose: 50 mg Simvastatin (Simvastatin 40 Mg Tab) 40 mg PO QPM IBRAHIMA Stop: 07/16/24 20:59 Last Admin: 06/18/24 20:01 Dose: 40 mg Tamsulosin HCl (Tamsulosin Hcl 0.4 Mg Cap) 0.4 mg PO DAILY IBRAHIMA Stop: 07/16/24 08:59 Last Admin: 06/19/24 08:29 Dose: 0.4 mg
--- NOTE | 2024-06-19 11:27 | Hospitalist Progress Note ---
Date of Service June 19, 2024 Assessment & Plan (1) Fever: Plan: Patient admitted 06/16/2024 for 5 to 6 days of diarrhea. -GI Panel/C diff testing reviewed negative -Respiratory Biofire negative -CTAP reviewed 06/16: severe right hydronephrosis. 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 marked thickening of wall of colon which is severe (cannot r/o malignancy). numerous bladder calculi present w/ thickening of wall. Prostate gland enlargement & heterogeneity, mild age indeterminate L2 compression fx, diverticulosis, nonobstructing b/l renal calculi measuring up to 0.6cm -chest CT reviewed 06/16: mild airspace opacities of upper lobes, could relate to atypical infx however favors appearance of interstitial lung disease. age indeterminate mild T5, T10, T11 compression fx - head CT reviewed 06/16: no acute findings, chronic findings noted -urology consulted, note reviewed 06/16, 06/17 -family prefers conservative treatment -blood cultures negative at 48 hour lico -consulted ID, note reviewed 06/18 -can discontinue vancomycin due to negative MRSA swab -transition to PO abx once diarrhea improves -discontinued cefepime and flaygl --> started Augmentin twice daily x 5 days - reviewed CBC 06/19: hgb 10.5 WBC 11.57 - reviewed BMP 06/19: Na improved 148, BUN 32, creatinine 1.08 -reviewed CRP and procal 06/18: 4.81/0.14 -06/18: did discuss with and daughter in law current goals of care. They are in agreement that they would like to continue to treat conservatively and avoid procedures. They are not interested in pursuing a colonoscopy at this time for his diarrhea and abnormal CT findings. They would like to continue on treatment with antibiotics and IV fluids to see if his clinical status improves. Patient is also not eating or drinking much which they are aware of. They are not interested in comfort measures only at this time and would like to continue with conservative management. All questions were answered. Will continue to re- discuss goals of care throughout hospitalization. AM CBC, BMP, CRP (2) UTI (urinary tract infection): Plan: -urinalysis 06/15: + for uti -follow up urine cultures negative see fever plan (3) Diarrhea: Plan: Diarrhea, colonic wall thickening GI panel and C diff negative CTA/P with severe colonic wall thickening? Malignant. Patient also with reports of ?1x BRBPR in the stool. No lightheadedness/dizziness/syncope/presyncope. Cover with antibiotics as noted. - Patient/family are not interested in colonoscopy unless this were likely to produce an immediate benefit in his clinical course, if this for malignancy malignancy patient not want to pursue treatment and would therefore defer diagnostic procedures -Continue Imodium prn (4) Cough: Plan: unchanged, chronic DDx includes atypical pneumonia and ILD. -CTAchest shows mild airspace opacity of the upper lobes which favor ILD, could represent atypical infection. - Patient treated with antibiotics as noted, procalcitonin is negative. -Bio fire negative. -Sputum culture pending. (5) Hypernatremia: Plan: When patient originally presented to ED, sodium levels WNL. Escalated to 154 on 06/18. May be result of dehydration due to poor oral intake. -reviewed Na 06/19: improvement to 148 -potassium levels low on 06/19 at 3.2, repleted potassium AM BMP (6) Hypotension: Plan: On 06/16 patient developed hypotension. - likely due to infection vs dehydration/malnutrition -s/p 3 L LR -s/p 4 L plasma-lyte -s/p IV hydrocortisone 06/16 -s/p 2 L Dextrose in water 06/18 -will continue to monitor BP and give fluids as needed. -06/19: has been normotensive and required no further fluids Plan Chronic conditions: -Dementia: Donepezil, memantine, Seroquel - 1.) Severe malnutrition -BPH: flomax -Sacral decubitus POA - wound nurse consulted Diet: regular, minced/moist Code status: DNR/DNI Disposition: anticipate discharge home 06/20 lengthy discussion with at bedside 06/19 Admission and Anticipated Discharge Date Admission Date: June 16, 2024 Subjective Patient seen and examined this morning with at bedside. Patient nonverbal and sleeping at time of encounter. Patient's reports he ate his breakfast today. Nursing states he did not eat lunch. Overall has remained normotensive and not required fluids today. Physical Exam 2 Constitutional: WD/WN, vitals as above Eyes: PERRL, conjunctivae normal, anicteric sclerae Respiratory: normal respiratory effort, lungs clear to auscultation Cardiovascular: RRR, no murmur, no edema Results & Data Results & Data Vital Signs (Past 12 Hours) Vital Signs Temp Pulse Pulse Resp BP Pulse Ox O2 Del Method 06/19/24 10:50 36.6 C 72 17 122/69 95 Room Air 06/19/24 07:37 36.6 C 64 18 127/61 96 Room Air 06/19/24 05:31 62 06/19/24 03:24 36.5 C 65 16 152/82 H 95 Room Air 06/19/24 00:00 65 14 Room Air Laboratory Results 06/19/24 06:15 06/19/24 06:15 PG Care Time/CCT Total # of Minutes Spent Total Time Spent with Patient: Total time spent is greater than 50% in coordination of care (as documented) at patient's floor/unit and/or counseling patient: Coding Level of Care Code 49745 SUB INP/OBS CARE 3/50MIN Diagnoses Fever, unspecified fever cause R50.9 Fever type: unspecified Urinary tract infection without hematuria, site unspecified N39.0 Hematuria presence: without hematuria Urinary tract infection type: site unspecified Diarrhea R19.7 Diarrhea type: presumed infectious Chronic cough R05.3 Cough type: chronic Hypernatremia E87.0 Hypotension, unspecified hypotension type I95.9 Hypotension type: unspecified hypotension type (1) Fever Fever type: unspecified Qualified Code(s): R50.9 - Fever, unspecified (2) UTI (urinary tract infection) Hematuria presence: without hematuria Urinary tract infection type: site unspecified Qualified Code(s): N39.0 - Urinary tract infection, site not specified (3) Diarrhea Diarrhea type: presumed infectious Qualified Code(s): R19.7 - Diarrhea, unspecified (4) Cough Cough type: chronic Qualified Code(s): R05.3 - Chronic cough (6) Hypotension Hypotension type: unspecified hypotension type Qualified Code(s): I95.9 - Hypotension, unspecified
[2024-06-19] MEDS: AMOXICILLIN/CLAVULANATE 875 MG TAB PO SCH (17:32)
[2024-06-20 06:54] LABS: Hematocrit (blood only) 35.1 % (42.0-52.0); Hemoglobin 11.5 g/dl (14.0-18.0); Mean Corpuscular Hgb Conc 32.8 g/dL (32.0-36.0); Mean Corpuscular Volume 91.6 fL (80.0-100.0); Mean Platelet Volume 9.9 fL (9.4-12.4); Platelet Count 267 K/uL (130-400); RDW Coefficient of Variation 13.2 % (11.5-14.5); RDW Standard Deviation 43.7 fL (36.4-46.3); Red Blood Count 3.83 M/uL (4.70-6.10); White Blood Count 13.32 K/ul (4.8-10.8)
[2024-06-20 07:39] LABS: BUN Creatinine Ratio 28.9 (10-20); Calcium 7.9 mg/dl (8.6-10.3); Creatinine Clr Calc Pharmacy 42.9 ml/min; Est GFR (African American) 84.5 ml/min; Est GFR (Non-African American) 72.9 ml/min; Potassium 3.9 mmol/L (3.5-5.1)
[2024-06-20] MEDS: DEXTROSE 5% 1,000 ML IV SCH (09:06)
--- NOTE | 2024-06-20 13:05 | Hospitalist Progress Note ---
Date of Service June 20, 2024 Assessment & Plan (1) Fever: Plan: Patient admitted 06/16/2024 for 5 to 6 days of diarrhea. -GI Panel/C diff testing reviewed negative -Respiratory Biofire negative -CTAP reviewed 06/16: severe right hydronephrosis. 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 marked thickening of wall of colon which is severe (cannot r/o malignancy). numerous bladder calculi present w/ thickening of wall. Prostate gland enlargement & heterogeneity, mild age indeterminate L2 compression fx, diverticulosis, nonobstructing b/l renal calculi measuring up to 0.6cm -chest CT reviewed 06/16: mild airspace opacities of upper lobes, could relate to atypical infx however favors appearance of interstitial lung disease. age indeterminate mild T5, T10, T11 compression fx - head CT reviewed 06/16: no acute findings, chronic findings noted -urology consulted, note reviewed 06/16, 06/17 -family prefers conservative treatment -blood cultures negative at 48 hour lico -consulted ID, note reviewed 06/18 -can discontinue vancomycin due to negative MRSA swab -transition to PO abx once diarrhea improves -discontinued cefepime and flaygl --> started Augmentin twice daily x 5 days - reviewed CBC 06/20: hgb 10.5 WBC 13.32 - reviewed BMP 06/20: Na 148, BUN 28, creatinine 0.97 -reviewed CRP and procal 06/18: 4.81/0.14 -06/18: did discuss with and daughter in law current goals of care. They are in agreement that they would like to continue to treat conservatively and avoid procedures. They are not interested in pursuing a colonoscopy at this time for his diarrhea and abnormal CT findings. They would like to continue on treatment with antibiotics and IV fluids to see if his clinical status improves. Patient is also not eating or drinking much which they are aware of. They are not interested in comfort measures only at this time and would like to continue with conservative management. All questions were answered. Will continue to re- discuss goals of care throughout hospitalization. -06/20: did discuss with and daughter in law goals of care. Due to patients declining condition and inability to have adequate nutrition/hydration they have elected to move forward with hospice care. Case management notified and script sent. Patient will be able to go home on hospice 06/21 (2) UTI (urinary tract infection): Plan: -urinalysis 06/15: + for uti -follow up urine cultures negative see fever plan (3) Diarrhea: Plan: Diarrhea, colonic wall thickening GI panel and C diff negative CTA/P with severe colonic wall thickening? Malignant. Patient also with reports of ?1x BRBPR in the stool. No lightheadedness/dizziness/syncope/presyncope. Cover with antibiotics as noted. - Patient/family are not interested in colonoscopy unless this were likely to produce an immediate benefit in his clinical course, if this for malignancy malignancy patient not want to pursue treatment and would therefore defer diagno stic procedures -Continue Imodium prn (4) Cough: Plan: unchanged, chronic DDx includes atypical pneumonia and ILD. -CTAchest shows mild airspace opacity of the upper lobes which favor ILD, could represent atypical infection. - Patient treated with antibiotics as noted, procalcitonin is negative. -Bio fire negative. -Sputum culture pending. (5) Hypernatremia: Plan: When patient originally presented to ED, sodium levels WNL. Escalated to 154 on 06/18. May be result of dehydration due to poor oral intake. -reviewed Na 06/20: 148 -s/p 1L dextrose in water 06/20 -potassium levels low on 06/19 at 3.2, repleted potassium -reviewed potassium 06/20: stable 3.9 AM BMP (6) Hypotension: Plan: On 06/16 patient developed hypotension. - likely due to infection vs dehydration/malnutrition -s/p 3 L LR -s/p 4 L plasma-lyte -s/p IV hydrocortisone 06/16 -s/p 3 L Dextrose in water -will continue to monitor BP and give fluids as needed. (7) Failure to thrive in adult: Plan: see fever plan -hx dementia -poor oral intake results in severe malnutrition and dehydration -home on hospice Plan Chronic conditions: -Dementia: Donepezil, memantine, Seroquel - 1.) Severe malnutrition -BPH: flomax -Sacral decubitus POA - wound nurse consulted Diet: regular, minced/moist Code status: DNR/DNI Disposition: anticipate discharge home on hospice 06/21 lengthy discussion with at bedside and daughter in law via phone 06/20 Admission and Anticipated Discharge Date Admission Date: June 16, 2024 Subjective Patient seen and examined this morning. Patient non verbal at baseline. Discussed patients plan of care with , also spoke with daughter in law via phone. Family is in agreement patient will go home on hospice. Physical Exam Constitutional: WD/WN, vitals as above Eyes: PERRL, conjunctivae normal, anicteric sclerae Respiratory: normal respiratory effort, lungs clear to auscultation Cardiovascular: RRR, no murmur, no edema Psychiatric: demented, nonverbal Results & Data Results & Data Vital Signs (Past 12 Hours) Vital Signs Temp Pulse Pulse Resp BP Pulse Ox O2 Del Method 06/20/24 11:41 37.2 C 83 17 120/81 97 Room Air 06/20/24 07:38 36.8 C 92 H 18 128/75 96 Room Air 06/20/24 07:16 Room Air 06/20/24 07:03 65 06/20/24 03:21 37.3 C 70 18 113/64 96 Room Air PG Care Time/CCT Total # of Minutes Spent Total Time Spent with Patient: Total time spent is greater than 50% in coordination of care (as documented) at patient's floor/unit and/or counseling patient: Coding Level of Care Code 55114 SUB INP/OBS CARE 3/50MIN Diagnoses Fever, unspecified fever cause R50.9 Fever type: unspecified Urinary tract infection without hematuria, site unspecified N39.0 Hematuria presence: without hematuria Urinary tract infection type: site unspecified Diarrhea R19.7 Diarrhea type: presumed infectious Chronic cough R05.3 Cough type: chronic Hypernatremia E87.0 Hypotension, unspecified hypotension type I95.9 Hypotension type: unspecified hypotension type Failure to thrive in adult R62.7 (1) Fever Fever type: unspecified Qualified Code(s): R50.9 - Fever, unspecified (2) UTI (urinary tract infection) Hematuria presence: without hematuria Urinary tract infection type: site unspecified Qualified Code(s): N39.0 - Urinary tract infection, site not specified (3) Diarrhea Diarrhea type: presumed infectious Qualified Code(s): R19.7 - Diarrhea, unspecified (4) Cough Cough type: chronic Qualified Code(s): R05.3 - Chronic cough (6) Hypotension Hypotension type: unspecified hypotension type Qualified Code(s): I95.9 - Hypotension, unspecified
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
[2024-06-21] MEDS ORDERED: ACETAMINOPHEN 325 MG TAB PO PRN (16:23)
[2024-06-21] MEDS ORDERED: ONDANSETRON INJ 2 MG/ML 2 ML VIAL IV PRN (16:23)
[2024-06-21] MEDS ORDERED: LORazepam 0.5 MG TAB PO PRN (16:23)
[2024-06-21] MEDS ORDERED: ONDANSETRON 4 MG OD TAB SL PRN (16:23)
[2024-06-21] MEDS ORDERED: LORazepam 0.5 MG in SYRINGE 0.25 ML IV PRN (16:23)
[2024-06-21] MEDS ORDERED: MoRPHine SULFATE 2 MG/ML CARP IV PRN (16:23)
[2024-06-21] MEDS ORDERED: MICONAZOLE NITRATE POWDER 85 GM EXT PRN (18:23)
[2024-06-22 07:27] VITALS: PULSE 85; RESP 18
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
[2024-06-22 11:30] VITALS: BP 115/68; TEMP 97.7
[2024-06-22 11:35] VITALS: O2SAT 97
--- NOTE | 2024-06-25 12:22 | Coding Query ---
CODING QUERY To promote full compliance with coding requirements relating to patient care, provider participation is requested in all cases of nematologist uncertainty. Please assist us with the question(s) below: Patient presents with ongoing diarrhea. No reports of fever, chills on (06/15) admission ([facility]). 06/16 PN-Addendum 12:30pm: Sepsis On reassessment patient has become febrile, and hypotensive. UTI (urinary tract infection): -urinalysis 06/15: + for uti Cough: Patient has hx of chronic cough. CTA showed mild airspace opacity of upper lobes which favor ILD and could represent atypical infection. Diarrhea R19.7 Diarrhea type: presumed infectious Coding Question(s): Can you please clarify the etiology of the patient's diarrhea and weakness? Seth any applicable response: [ ] Diarrhea, presumed infectious Bacteria (pls specify organism and/or note unknown if unknown) [ ] Uti [ ] Atypical interstitial pneumonitis [ x ] Sepsis ruled in (proctitis) [ ] Sepsis ruled out [ ] Other Physician's Response(s): Thank you Alta Upton Principal Diagnosis: "that condition established after study, to be chiefly responsible for occasioning the admission of the patient to the hospital for care." Co-Existing Principal Diagnosis: "when two or more diagnoses equally meet the criteria for principal diagnosis as determined by the circumstances of admission, diagnostic work up, and/or therapy provided, and the Alphabetic Index, Tabular List, or another coding guideline does not provide sequencing direction, any one of the diagnoses may be sequenced first." "When the physician has documented what appears to be a current diagnosis in the body of the record, but has not included the diagnosis in the final diagnostic statement, the physician should be asked whether the diagnosis should be added." (Source [facility]oding [facility] 2 QTR90. p3-4) JOSEPHINE
== END 2024-06-22 12:05 | disposition hospice, home (50) | DRG 871 ==
LOC: ED 19:35 → SUATTDRO 06-16 01:11 → 4W 06-16 01:11 → 2N 06-19 17:38